=== PATIENT | male | born 1950 | race Caucasian/White ===

== ENCOUNTER → 2017-08-21 11:23 | Outpatient (CLI) | payer MEDICARE, OTHER, SELFPAY ==
--- NOTE | 2017-08-21 11:35 | XR_ITS ---
XR forearm RT 2V, XR wrist RT min 3V Ordering Physician: Sherrie Hdz HISTORY: ITS.REASON: RT WRIST PAIN,RT FOREARM PAIN : 67 years: Male Pain fall wrist pain edema. Forearm pain TECHNIQUE: Right wrist 3 views Right forearm 2 views COMPARISON :No previous for comparison ======== RIGHT WRIST 3 VIEWS Fracture distal radius. Fracture line transverses the distal radial metaphysis. Slight dorsal tilt of the distal fracture fragment with cortical offset most evident anteriorly and seen on lateral view. There is additional fracture lineextending longitudinally through a cortex at tip of radial styloid. Mild cortical step-off at here at the at articular surface radial styloid.. Question there may be a very subtle undisplaced second longitudinal fracture line to the the mid articular surface. There is also a fracture of the ulnar styloid with minor distraction.. At the carpals there is additional density extending off the distal navicular which I believe reflects some spurring and hypertrophic changes. Old feature and and I do not believe reflects acute fracture of navicular on plain Sclerosis, narrowing reflect arthritic changes at the first carpal-metacarpal joint mild hypertrophic changes here. On the lateral image the lunate has a slight posterior position and rotation but is not dislocated or displaced.. There are numerous metallic fragments seen throughout the wrist and hand. This require correlation. I presume is from old injuries of but cannot exclude recent feature. . Diffuse soft tissue swelling at the wrist most evident anteriorly ===. IMPRESSION... Colles' type fracture of wrist. ... 1 Transverse Fracture distal radius metaphysis, with slight dorsal tilt distal radial fracture fragment .... Additional longitudinal fracture,extends through the radial styloid- yields minor cortical offset of articular surface here at the radial styloid.. ... Question/ suspect second a subtle longitudinal fracture line extending to mid articular surface distal radius 2. Ulnar styloid fracture associated 3..Degenerative arthritic changes wrist most evident first carpal-metacarpal joint 4. Most likely hypertrophic spurring from radial margin distal scaphoid account for appearance here.. Doubt acute fracture here on current plain film 5. Scattered metallic foreign body elements throughout soft tissues of hand and wrist require correlation. Most likely old RIGHT FOREARM 2 VIEWS The fracture of the distal radius is been previously described above. Again seen on these images. A generous soft tissue swelling about wrist associated The remainder of the radial and ulnar shaft appear intact. This study includes 2 views of the elbow which reveal no acute findings at limited views of the elbow joint. No effusion or.. The radial head appears intact. Calcification at the lateral epicondyle noted likely reflecting old lateral epicondylitis. Spurring at olecranon. Joint space well maintained.. IMPRESSION: The fracture distal radius again seen. (basically variation Colles' type fracture) . Otherwise Shaft of Radius & ulna shaft intact,. Limited included views elbow with no acute findings. Only Minor observations
== END ==
PROVIDERS: PCP Internal Medicine Adolescent Medicine; Visit Provider Nurse Practitioner Family
DX: M25.531 Pain in right wrist (principal); M79.631 Pain in right forearm
CPT/HCPCS: 73090; 73110

== ENCOUNTER → 2017-08-22 08:41 | Outpatient (CLI) | payer MEDICARE, OTHER, SELFPAY ==
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
== END ==
PROVIDERS: Family Provider Internal Medicine Adolescent Medicine; PCP Internal Medicine Adolescent Medicine; Visit Provider Orthopaedic Surgery
DX: S62.101A Fracture of unspecified carpal bone, right wrist, initial encounter for closed fracture (principal)
CPT/HCPCS: 73200

== ENCOUNTER 2017-08-28 08:53 | Day surgery (SDC) | payer MEDICARE, OTHER, SELFPAY ==
[2017-08-25 14:19] VITALS: BMI 30.8
[2017-08-28] VITALS (12 sets, daily range): BP systolic 178–207; BP diastolic 86–110; PULSE 50–56; RESP 12–20; TEMP 36.6–37.1; O2SAT 95–98
--- NOTE | 2017-08-28 | XR_ITS ---
XR wrist RT 2V HISTORY: ITS.REASON: ORIF RT WRIST ORDERING PHYSICIAN: Mehul May MD PATIENT AGE: 67 years COMPARISON: 08/21/2017 FINDINGS: 2 images submitted with the C-arm show a cast in place with the wrist in slight flexion. There is been closed reduction of the distal radial and ulnar fractures with good alignment. IMPRESSION: Status post closed reduction distal radial and ulnar fractures with good alignment. Fluoroscopy time: 57 seconds
--- NOTE | 2017-08-28 09:41 | P.PN_ITS ---
[facility] Anesthesia Checklist - Structural Data Admitted From: Home Planned Operative Procedure/s: closed reduction r wrist Consent for Planned Operative Procedure(s) Verified: Yes Verified Documents: Surgical Consent - NPO Status Verified Time NPO: 23:00 - Airway Assessment C-Spine Mobility Assessed: Yes TMJ Mobility Assessed: Yes Dentition: Good Dentition - Neurological Assessment Level of Consciousness: Awake, Alert Hx Seizures: No Numbness or tingling in extremities: No - Anesthesia Plan Anesthesia Risk discussed: Yes Anesthesia Plan: Verified ASA Class: II Anesthesia Type: General [facility] Anesthesia HX I have reviewed the patient's past medical history: Yes Medical History: Reports:: Cancer, Depression, Gastroesophageal Reflux Disease( GERD), Hyperlipidemia, Hypertension, Kidney Stones Denies:: Diabetes Mellitus Type 1, Diabetes Mellitus Type 2, MRSA Other Medical History: Reports: Arthritis, Other Laterality Cases: Right: Cataract Other Surgeries: Yes: Cancer Surgery, Colonoscopy Amputation: No Fractures: No Comment: manisha monge *Family Hx:: No significant family history
[2017-08-28 10:20] LABS: Basophils % 0.4 % (0.1-2.0); Eosinophils # 0.1 K/mm3 (0.0-0.4); Eosinophils % 1.5 % (0.1-12.0); Hematocrit 41.7 % (42.0-52.0); Hemoglobin 14.5 g/dL (14.1-18.0); Lymphocytes # 1.5 K/mm3 (0.7-4.5); Lymphocytes % 20.1 K/mm3 (10-50); Mean Corpuscular HGB Conc 34.7 g/dL (31.8-35.4); Mean Corpuscular Hemoglobin 31.9 pg (27.0-31.2); Mean Corpuscular Volume 92.1 fl (80-94); Mean Platelet Volume 9.2 fl (7.4-10.4); Monocytes # 0.5 K/mm3 (0.1-1.0); Monocytes % 6.8 % (1.7-9.3); Neutrophils # 5.3 K/mm3 (1.8-7.8); Neutrophils % 71.2 % (37.0-80.0); Platelet Count 166 K/mm3 (142-424); Red Blood Count 4.53 M/mm3 (4.60-6.20); Red Cell Distribution Width 12.9 % (11.5-17.5); White Blood Count 7.5 K/mm3 (4.8-10.8)
[2017-08-28 10:38] LABS: Anion Gap 16.8 mEq/L (5-15); Blood Urea Nitrogen 15 mg/dL (7-18); Carbon Dioxide 28 mmol/L (21.0-32.0); Chloride 103 mmol/L (98-107); Creatinine Clearance Estimated 94 mL/min (0-300); Creatinine,Serum 1.02 mg/dL (0.70-1.30); Estimated Glomerular Filt Rate 72 ml/min (>60); GFR (African American) 88 ML/MIN (>60); Glucose 120 mg/dL (74-106); Potassium 3.8 mmoL/L (3.5-5.1); Sodium 144 mmol/L (136-145)
--- NOTE | 2017-08-28 10:56 | P.PN_ITS ---
[facility] Anesthesia Record Part I Intake, IV Amount: 500 Estimated blood loss (mL): 0 Urine output (mL): 0 Blood Pressure: 178/95 SaO2: 95 Pulse Rate: 52 Respiratory Rate: 12 Temperature: 98 F Patient is:: Awake, Stable Stable to PACU at:: 10:55
--- NOTE | 2017-08-28 10:56 | P.PN_ITS ---
[facility] Anesthesia Record Part II Discharge Time: 11:25 Destination: [facility] PACU nurse assessment reviewed?: Yes Patient Condition:: Good Anesthesia Complications:: None
--- NOTE | 2017-08-28 10:56 | HMH.ANESII ---
[facility] Anesthesia Record Part II Discharge Time: 11:25 Destination: [facility] PACU nurse assessment reviewed?: Yes Patient Condition:: Good Anesthesia Complications:: None
--- NOTE | 2017-08-28 10:59 | XR_ITS ---
XR wrist RT min 3V Ordering Physician: Mehul May MD Patient Age: 67 years: Male HISTORY: ITS.REASON: right distal radius fracture, closed reduction Postop close reduction TECHNIQUE: 3 view right wrist in cast COMPARISON :Previous right wrist 08/21/2017 FINDINGS At distal radial fracture again noted. It mainly transverses the distal radius but also has a longitudinal component extending through the radial styloid. On today's lateral film there is less dorsal tilt of the distal fracture fragments. Improved alignment. Although obscured by overlying cast material there appears to be a nearly congruent appearance to the distal radial articular cortex. The small ulnar styloid fragment again noted with mild distraction, unchanged. The patient is scattered metallic foreign body elements throughout the hand and adjacent to the wrist. These are likely long-standing. Require correlation. Short arm plaster' split/cast material Anterior and posterior. . 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 IMPRESSION: ----- Fracture distal radius and ulnar styloid. Now in plaster cast/splint Slight improved position distal radial fracture on lateral view
--- NOTE | 2017-08-28 12:56 | PC.NURSE ---
1105-pt eating ice chips w/out difficulty
--- NOTE | 2017-08-28 13:05 | PC.NURSE ---
1120- at pt's bedside at this time 1123-MARK Blackburn notified of pt's elevated BP at this time and that pt reports pain level 3/10 to right arm. MARK Blackburn ordered for pt to have dose of Morphine 2mg IV now and continue to monitor BP. 1125-radiology at bedside
--- NOTE | 2017-08-28 13:09 | PC.NURSE ---
1130-MARK Blackburn at pt's bedside. Notified that pt reports pain level is easing and that pt's BP remains elevated at 200/93. MARK Blackburn ordered that if pt's diastolic BP remains < 100 then pt is okayed for diacharge to post op. 1133-detailed report called to WAYNE Haque 1135-Pt transported to post op via stretcher w/rails up and left in care of WAYNE Haque at this time. Pt stable.
--- NOTE | 2017-08-28 15:24 | PC.NURSE ---
1220-ashlee umana crna asked to be notified if pt diastolic bp went above 100. pt bp is 207/110. luis angel pediatric audiologist notified. in the meantime, pt taken to br with assistance. assisted back to bay and monitored again. bp 207/101 when ashlee umana crna arrived. pt stated he felt fine. and ashlee umana crna okay to dc pt pt stable.
--- NOTE | 2017-08-29 16:41 | HMH.OPNOTE ---
Date of procedure: 08/28/17 Pre-op Diagnosis:: Right distal radius fracture Post-op diagnosis:: same Procedure performed:: Closed reduction under general anesthesia, right distal radius fracture Surgeon:: Mehul May MD OLERICULTURE PROFESSOR:: Tito Arguello Anesthesia: other Estimated blood loss (mL): 0 Operative findings:: See operative note Operative note:: Patient taken to the operating room after appropriate timeout identification, the right upper extremity was evaluated with fluoroscopy. A closed reduction maneuver was performed using traction on the base of the right thumb followed by pronation and a volar directed force to reduce the displaced fracture. After the reduction maneuver was performed, C-arm fluoroscopic views confirmed acceptable reduction. The patient was then placed in a double sugar tong splint, appropriately padded. Additional fluoroscopic views showed the reduction to be appropriate. Note is made that the patient's had a previous fracture and thus has some preceding dorsal tilt. After the plaster had dried sufficiently, the patient was awakened and transported to the recovery room in satisfactory condition for final x-rays as well. Condition: stable Disposition: PACU Complications:: No complications
--- NOTE | 2017-08-29 16:44 | P.OP_ITS ---
Date of procedure: 08/28/17 Pre-op Diagnosis:: Right distal radius fracture Post-op diagnosis:: same Procedure performed:: Closed reduction under general anesthesia, right distal radius fracture Surgeon:: Mehul May MD DATA DESIGNER:: Tito Arguello Anesthesia: other Estimated blood loss (mL): 0 Operative findings:: See operative note Operative note:: Patient taken to the operating room after appropriate timeout identification, the right upper extremity was evaluated with fluoroscopy. A closed reduction maneuver was performed using traction on the base of the right thumb followed by pronation and a volar directed force to reduce the displaced fracture. After the reduction maneuver was performed, C-arm fluoroscopic views confirmed acceptable reduction. The patient was then placed in a double sugar tong splint , appropriately padded. Additional fluoroscopic views showed the reduction to be appropriate. Note is made that the patient's had a previous fracture and thus has some preceding dorsal tilt. After the plaster had dried sufficiently, the patient was awakened and transported to the recovery room in satisfactory condition for final x-rays as well. Condition: stable Disposition: PACU Complications:: No complications
== END 2017-08-28 12:30 | disposition home or self-care (01) ==
LOC: OR 08:55
PROVIDERS: Family Provider Internal Medicine Adolescent Medicine; PCP Internal Medicine Adolescent Medicine; Visit Provider Orthopaedic Surgery
DX: S52.501A Unspecified fracture of the lower end of right radius, initial encounter for closed fracture (principal); W11.XXXA Fall on and from ladder, initial encounter
CPT/HCPCS: 25605; 36415; 73100; 73110; 76000; 80048; 85025; 96374

== ENCOUNTER → 2017-09-13 09:14 | Outpatient (CLI) | payer MEDICARE, OTHER, SELFPAY ==
--- NOTE | 2017-09-13 09:16 | XR_ITS ---
XR wrist RT min 3V HISTORY: Follow-up closed reduction, follow-up fracture ITS.REASON: 2 wk post op RT wrist closed reduction ORDERING PHYSICIAN: Mehul May MD PATIENT AGE: 67 years COMPARISON: 08/28/2017 FINDINGS: Study is obtained through a cast. There is good alignment of the comminuted distal radial fracture with suggestion of some mild callus formation. Bony detail is obscured by the overlying cast. Scattered metallic densities are once again noted. IMPRESSION: Healing fracture distal radius status post closed reduction with good alignment.
== END ==
PROVIDERS: PCP Internal Medicine Adolescent Medicine; Visit Provider Orthopaedic Surgery
DX: S52.501A Unspecified fracture of the lower end of right radius, initial encounter for closed fracture (principal)
CPT/HCPCS: 73110

== ENCOUNTER → 2017-10-04 09:25 | Outpatient (CLI) | payer MEDICARE, OTHER, SELFPAY ==
--- NOTE | 2017-10-04 09:29 | XR_ITS ---
XR wrist RT min 3V Ordering Physician: Mehul May MD Patient Age: 67 years: Male HISTORY: ITS.REASON: RT wrist fx TECHNIQUE: 3 views right wrist COMPARISON :08/28/2017 right wrist FINDINGS Cast is been removed with today's study. Healing fracture transversing the distal radius is again noted with early healing evident. Good apposition.. No displacement. There is a longitudinal extension of this fracture along the radial styloid however the joint surface remains fairly congruent with only subtle cortical irregularity at radial styloid. Of the fracture at the base of the ulnar styloid again noted is well. Stable position. There are arthritic changes narrowing the first carpal-metacarpal joint. There is also some mild Numerous small metallic foreign body calcifications are seen at the right hand of most evident collection is seen dorsal to the second metacarpal. T. These are unchanged IMPRESSION: 1. Healing fracture distal radius . Stable fracture or styloid Arthritic changes at right wrist most evident at first carpal metacarpal joint
== END ==
PROVIDERS: PCP Internal Medicine Adolescent Medicine; Visit Provider Orthopaedic Surgery
DX: Z47.89 Encounter for other orthopedic aftercare (principal)
CPT/HCPCS: 73110

== ENCOUNTER → 2017-12-01 09:09 | Outpatient (CLI) | payer MEDICARE, OTHER, SELFPAY ==
--- NOTE | 2017-12-01 09:11 | XR_ITS ---
XR wrist RT min 3V HISTORY follow-up fracture ITS.REASON: S/P CLOSED REDUCTION RT DISTAL RADIUS ORDERING PHYSICIAN: Mehul May MD PATIENT AGE: 67 years Comparison: 10/04/2017 FINDINGS: There is a healing transverse fracture involving the distal aspect of the radius 1 cm proximal to the articular surface with callus formation developing at fracture site. There is good alignment. Nondisplaced avulsion fracture of the ulnar styloid also noted. Degenerative changes are present at the first metacarpal carpal joint. Multiple metallic densities are present as before on or within the soft tissues. IMPRESSION: Good alignment healing distal radial fracture and ulnar styloid avulsion
== END ==
PROVIDERS: PCP Internal Medicine Adolescent Medicine; Visit Provider Orthopaedic Surgery
DX: Z47.89 Encounter for other orthopedic aftercare (principal)
CPT/HCPCS: 73110

== ENCOUNTER 2017-12-13 10:00 | Outpatient (RCR) | payer MEDICARE, OTHER, SELFPAY ==
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
== END 2017-12-13 10:35 | disposition home or self-care (01) ==
LOC: OT 10:00
PROVIDERS: Family Provider Internal Medicine Adolescent Medicine; PCP Internal Medicine Adolescent Medicine; Visit Provider Orthopaedic Surgery
DX: S52.501A Unspecified fracture of the lower end of right radius, initial encounter for closed fracture (principal)
CPT/HCPCS: 97110; 97140; 97165

== ENCOUNTER → 2018-03-07 07:04 | Outpatient (CLI) | payer MEDICARE, OTHER, SELFPAY ==
[2018-03-07 07:33] LABS: Blood Urea Nitrogen 19 mg/dL (7-18); Creatinine,Serum 1.17 mg/dL (0.70-1.30); Estimated Glomerular Filt Rate 62 ml/min (>60); GFR (African American) 75 ML/MIN (>60)
--- NOTE | 2018-03-07 09:00 | CT_ITS ---
CT abdomen pelvis w con CLINICAL INDICATION: ITS.REASON: RECTOSIGMOID CA, HX LARGE INTESTINE CA, HYPERCHOLESTEROLEMIA ORDERING PHYSICIAN: Masoud Orozco PATIENT AGE: 67 years COMPARISON: 02/25/2017 TECHNIQUE: Axial images obtained with sagittal and coronal reformats. All CT scans at the facility use one or more dose reduction, viz: automated exposure control, ma/kV adjustment per patient size (including targeted exams where dose is matched to indication, i.e. head), or iterative reconstruction technique. PROCEDURE: Oral Contrast: Redicat IV Contrast: 75 mL's of Isovue-370. FINDINGS: There has been a prior cholecystectomy. Slight decreased attenuation is present within the liver in the gallbladder fossa similar to the previous study and may be due to an area of fatty infiltration. Liver has an otherwise unremarkable appearance. There is some mild biliary ectasia which may be due to prior cholecystectomy. The spleen, adrenal glands, and pancreas are unremarkable. The small duodenal diverticulum projecting off the medial portion of the descending duodenum. No adrenal mass. No renal mass. There is a 12 mm nonobstructing left mid renal stone within additional 5 mm stone lateral and 4 mm stone inferior within the left kidney. No ureteral calculi. No evidence of appendicitis or diverticulitis. There is diverticulosis of the descending and sigmoid colon as well as transverse colon. No evidence of diverticulitis. No intestinal obstruction or free air. There is an anastomosis of the small bowel in the right lower quadrant which is widely patent. Postsurgical changes are present in the rectosigmoid region. No adenopathy or mass evident. No significant change from 02/25/2017. No abnormal fluid collection. No pelvic mass or focal inflammatory change apparent. There are mild osteoarthritic changes of the hips and mild degenerative changes in the lumbar spine. No bony destructive process. IMPRESSION: 1. No evidence of hepatic or adrenal metastasis. 2. Left nephrolithiasis. 3. Postsurgical changes at the rectosigmoid region with no CT evidence of for current neoplasm or adenopathy
--- NOTE | 2018-03-07 09:00 | CT_ITS ---
CT chest w con HISTORY: ITS.REASON: RECTOSIGMOID CA, HX LARGE INTESTINE CA, HYPERCHOLESTEROLEMIA ORDERING PHYSICIAN: Masoud Orozco PATIENT AGE: 67 years COMPARISON: None TECHNIQUE: Axial images obtained following the administration of 75 mL of Isovue 370 . Sagittal, and coronal reformatted images are also generated and reviewed. All CT scans at the facility use one or more dose reduction, viz: automated exposure control, ma/kV adjustment per patient size (including targeted exams where dose is matched to indication, i.e. head), or iterative reconstruction technique. FINDINGS: No mediastinal or hilar mass or adenopathy. Coronary artery calcifications are present. There is normal heart size. No evidence of pericardial effusion. No evidence of aortic aneurysm, dissection, or central pulmonary embolus. 3 mm noncalcified nodule in the right middle lobe anteriorly. No suspicious nodules are evident. There is a calcified granuloma in right lung base No effusions or infiltrates. No acute bony anomalies. No bony destructive process. IMPRESSION: Essentially negative CT chest. No convincing evidence of metastatic disease. There is a 3 mm nodule in the right middle lobe which is too small to categorize.
--- NOTE | 2018-03-07 10:05 | HMH.ITSHM ---
METFORMIN,OXYBUTRONIN,SIMVASTATIN,LOANSPRAZOLE.GLIPIRIDE, LOSARTAON FINASTERIDE ASPRIN,
== END ==
PROVIDERS: Family Provider Internal Medicine Adolescent Medicine; PCP Internal Medicine Adolescent Medicine; Visit Provider Internal Medicine Hematology & Oncology
DX: C19 Malignant neoplasm of rectosigmoid junction (principal); Z85.030 Personal history of malignant carcinoid tumor of large intestine; E78.00 Pure hypercholesterolemia, unspecified; D29.1 Benign neoplasm of prostate
CPT/HCPCS: 36415; 71260; 74177; 82565; 84520; Q9967

== ENCOUNTER → 2018-09-14 06:49 | Outpatient (CLI) | payer MEDICARE, OTHER, SELFPAY ==
--- NOTE | 2018-09-14 06:58 | NM_ITS ---
History and Indications: Attention, chest pain, shortness of breath, abnormal EKG, fatigue Procedure: A she received a 0.4 mg of intravenous Lexiscan, resting heart rate was 61 bpm resting blood pressure 191/102, with Lexiscan maximum heart rate achieved was 89 bpm which is less than 85% of the maximum predicted heart rate and a blood pressure was 159/85. With Lexiscan no symptoms recorded Electrocardiogram: Resting echo showed sinus is nonspecific ST-T changes, with Lexiscan there is less than 1.5 mm the segment depression noted from the baseline EKG. The EKG portion of the Lexiscan Myoview is nondiagnostic. Cardiac stress and resting SPECT images: Cardiac stress and resting SPECT images were obtained using technetium 99 Myoview 31.8 mCi stress and 10.7 mCi at rest. Gated SPECT further analysis of segmental wall motion and calculation of the ejection fraction also done. Cardiac stress and resting SPECT images show uniform myocardial activity without segmental perfusion abnormality, computer derived ejection fraction is 57% with no regional wall motion abnormality, right ventricle is normal size and contractility. Conclusion: 1. The EKG portion of the Lexiscan Myoview is nondiagnostic. 2. No scintigraphic evidence of reversible ischemia seen, computer derived ejection fraction is 57% with no regional wall motion abnormality, right ventricle are normal size and contractility. 3. Normal Lexiscan Myoview study.
--- NOTE | 2018-09-14 10:17 | HMH.ITSHM ---
Current Home Medications as stated by this patient Mehul Moulton or sales representative supervisor. []COREG AMLODIPINE ASP ZOLOFT NEXIUM LISINOPRIL INDAPMIDE
== END ==
PROVIDERS: PCP Internal Medicine Adolescent Medicine; Visit Provider Internal Medicine Adolescent Medicine
DX: R94.31 Abnormal electrocardiogram [ECG] [EKG] (principal); R07.9 Chest pain, unspecified
CPT/HCPCS: 78452; 93017; A9502; J2785

== ENCOUNTER → 2018-09-28 10:29 | Outpatient (CLI) | payer MEDICARE, OTHER, SELFPAY ==
--- NOTE | 2018-09-28 10:38 | CT_ITS ---
CT chest wo con HISTORY: Follow-up colon cancer ITS.REASON: ANGINA,MALIGNANT NEOPLASM OF RECTOSIGMOID JUNCTION ORDERING PHYSICIAN: Masoud Orozco PATIENT AGE: 68 years COMPARISON: 03/07/2018 Technique: Axial images obtained following the administration of 75 mL of Optiray 350 . Sagittal, and coronal reformatted images are also generated and reviewed. All CT scans at the facility use one or more dose reduction, viz: automated exposure control, ma/kV adjustment per patient size (including targeted exams where dose is matched to indication, i.e. head), or iterative reconstruction technique. FINDINGS: There is a moderate degree of coronary artery calcification. Normal heart size. No evidence of pericardial effusion. No mediastinal or hilar mass or adenopathy.. Stable parenchymal opacity is present in the right apex anteriorly at 6 mm. A 4 mm noncalcified nodule present in the right upper lobe inferiorly unchanged. A calcified granuloma is present in the right lung base.. There is tortuosity of the thoracic aorta. No new nodules are evident. No effusions or infiltrates. No acute bony findings. There is mild kyphosis of the upper thoracic spine with multilevel degenerative change. IMPRESSION: Overall stable CT appearance of the chest. No convincing evidence of metastatic disease Coronary artery disease
== END ==
PROVIDERS: PCP Internal Medicine Adolescent Medicine; Visit Provider Internal Medicine Hematology & Oncology
DX: C19 Malignant neoplasm of rectosigmoid junction (principal); E78.00 Pure hypercholesterolemia, unspecified; D29.1 Benign neoplasm of prostate; Z85.038 Personal history of other malignant neoplasm of large intestine
CPT/HCPCS: 71250

== ENCOUNTER → 2018-10-01 10:39 | Outpatient (CLI) | payer MEDICARE, OTHER, SELFPAY ==
[2018-10-01 14:13] LABS: Basophils # 0.1 K/mm3 (0-0.2); Basophils % 0.7 % (0.1-2.0); Eosinophils # 0.1 K/mm3 (0.0-0.4); Eosinophils % 1.7 % (0.1-12.0); Hematocrit 39.7 % (42.0-52.0); Hemoglobin 13.7 g/dL (14.1-18.0); Lymphocytes # 1.6 K/mm3 (0.7-4.5); Lymphocytes % 23.9 % (10-50); Mean Corpuscular HGB Conc 34.4 g/dL (31.8-35.4); Mean Corpuscular Hemoglobin 31.6 pg (27.0-31.2); Mean Corpuscular Volume 91.7 fl (80-94); Mean Platelet Volume 9.6 fl (7.4-10.4); Monocytes # 0.4 K/mm3 (0.1-1.0); Monocytes % 6.1 % (1.7-9.3); Neutrophils # 4.5 K/mm3 (1.8-7.8); Neutrophils % 67.7 % (37.0-80.0); Platelet Count 168 K/mm3 (142-424); Red Blood Count 4.33 M/mm3 (4.60-6.20); Red Cell Distribution Width 12.9 % (11.5-17.5); White Blood Count 6.7 K/mm3 (4.8-10.8)
[2018-10-01 15:25] LABS: Alanine Aminotransferase 39 U/L (12-78); Albumin Level 4.2 gm/dL (3.4-5.0); Albumin/Globulin Ratio 1.3 (1.1-1.8); Alkaline Phosphatase 112 U/L (46-116); Anion Gap 15.8 mEq/L (5-15); Aspartate Amino Transferase 25 U/L (15-37); Bilirubin,Total 0.7 mg/dL (0.2-1.0); Blood Urea Nitrogen 23 mg/dL (7-18); Calcium 9.2 mg/dL (8.5-10.1); Carbon Dioxide 26 mmol/L (21.0-32.0); Chloride 105 mmol/L (98-107); Chol/HDL Ratio 7.2 (1-3.5); Cholesterol 224 mg/dL (140-200); Creatinine,Serum 1.22 mg/dL (0.70-1.30); Estimated Glomerular Filt Rate 59 ml/min (>60); GFR (African American) 71 ML/MIN (>60); Globulin 3.3 gm/dl (1.3-3.2); Glucose 144 mg/dL (74-106); HDL Cholesterol 31 mg/dL (27-67); LDL Cholesterol 146 mg/dL (0-130); Potassium 3.8 mmoL/L (3.5-5.1); Prostate Specific Ag Screen 0.8 ng/mL (0.0-4.0); Sodium 143 mmol/L (136-145); Thyroid Stimulating Hormone 4.08 uIU/ml (0.358-3.740); Total Protein,Serum 7.5 gm/dL (6.4-8.2); Triglycerides 233 mg/dL (30-200); VLDL Cholesterol 47 mg/dL (0-40)
[2018-10-02 07:02] LABS: Vitamin D 25 Hydroxy 23.5 ng/mL (30.0-100.0)
[2018-10-02 08:11] LABS: Vitamin B12 436 pg/mL (232-1245)
== END ==
PROVIDERS: PCP Internal Medicine Adolescent Medicine; Visit Provider Internal Medicine Adolescent Medicine
DX: Z00.00 Encounter for general adult medical examination without abnormal findings (principal); I10 Essential (primary) hypertension; E78.5 Hyperlipidemia, unspecified; R73.9 Hyperglycemia, unspecified; Z12.5 Encounter for screening for malignant neoplasm of prostate; Z85.038 Personal history of other malignant neoplasm of large intestine
CPT/HCPCS: 36415; 80053; 80061; 82378; 82607; 82652; 83036; 84443; 85025; G0103

== ENCOUNTER → 2019-03-05 11:15 | Outpatient (CLI) | payer MEDICARE, OTHER, SELFPAY ==
[2019-03-05 14:11] LABS: Basophils # 0.1 K/mm3 (0-0.2); Basophils % 0.5 % (0.1-2.0); Eosinophils # 0.1 K/mm3 (0.0-0.4); Eosinophils % 0.5 % (0.1-12.0); Hematocrit 43.9 % (42.0-52.0); Hemoglobin 14.8 g/dL (14.1-18.0); Lymphocytes # 1.4 K/mm3 (0.7-4.5); Lymphocytes % 11.4 % (10-50); Mean Corpuscular HGB Conc 33.6 g/dL (31.8-35.4); Mean Corpuscular Volume 95.1 fl (80-94); Mean Platelet Volume 8.8 fl (7.4-10.4); Monocytes # 0.7 K/mm3 (0.1-1.0); Monocytes % 5.6 % (1.7-9.3); Platelet Count 204 K/mm3 (142-424); Red Blood Count 4.62 M/mm3 (4.60-6.20); Red Cell Distribution Width 13.1 % (11.5-17.5); White Blood Count 12.2 K/mm3 (4.8-10.8)
[2019-03-05 19:56] LABS: Alanine Aminotransferase 40 U/L (12-78); Albumin Level 4.4 gm/dL (3.4-5.0); Albumin/Globulin Ratio 1.2 (1.1-1.8); Alkaline Phosphatase 92 U/L (46-116); Amylase 98 U/L (25-115); Anion Gap 16.8 mEq/L (5-15); Aspartate Amino Transferase 22 U/L (15-37); Bilirubin,Total 0.8 mg/dL (0.2-1.0); Blood Urea Nitrogen 24 mg/dL (7-18); Calcium 9.6 mg/dL (8.5-10.1); Carbon Dioxide 25 mmol/L (21.0-32.0); Chloride 105 mmol/L (98-107); Creatinine,Serum 1.28 mg/dL (0.70-1.30); Estimated Glomerular Filt Rate 56 ml/min (>60); GFR (African American) 67 ML/MIN (>60); Globulin 3.6 gm/dl (1.3-3.2); Glucose 130 mg/dL (74-106); Lipase 191 u/L (73-393); Potassium 3.8 mmoL/L (3.5-5.1); Sodium 143 mmol/L (136-145)
== END ==
PROVIDERS: PCP Internal Medicine Adolescent Medicine; Visit Provider Internal Medicine Adolescent Medicine
DX: R19.7 Diarrhea, unspecified (principal); R11.10 Vomiting, unspecified; R10.84 Generalized abdominal pain
CPT/HCPCS: 36415; 80053; 82150; 83690; 85025

== ENCOUNTER → 2019-03-20 08:17 | Outpatient (CLI) | payer MEDICARE, OTHER, SELFPAY ==
--- NOTE | 2019-03-20 08:23 | US_ITS ---
PROCEDURE: US ABDOMEN LIMITED CLINICAL INDICATION: VOMITING,ABD PAIN COMPARISON: ABDPELW CT abdomen pelvis w con from 03/07/[address] chest wo con from 09/28/2018 FINDINGS: PANCREAS: Poorly demonstrated due to overlying bowel gas. LIVER: No focal liver lesions demonstrated. Homogeneous echogenicity. No intrahepatic biliary ductal dilatation evident. There is appropriate direction of blood flow within a non dilated portal vein RIGHT KIDNEY: No hydronephrosis. There is mild right renal cortical scarring GALLBLADDER: Prior cholecystectomy. Common bile duct is normal at 4 mm. IMPRESSION: Prior cholecystectomy. No acute finding Dictated by: Brown Cross MD 03/21/2019 10:54 Electronically signed by Brown Cross MD in [place] 03/21/2019 10:54
--- NOTE | 2019-03-20 08:50 | MR_ITS ---
PROCEDURE: MR ABDOMEN WO CON CLINICAL INDICATION: ABDOMEN PAIN Abdominal pain with nausea and vomiting green bile. Prior cholecystectomy. COMPARISON: ABDPELW CT abdomen pelvis w con from 03/07/2018 US ABDOMEN LIMITED from 03/20/2019 TECHNIQUE: Routine multiplanar multi echo sequences are performed without gadolinium enhancement. MRCP technique also utilized FINDINGS: There is mild ectasia of the intrahepatic biliary radicles. There has been a prior cholecystectomy. The common hepatic duct and common bile duct are normal in caliber. No retained common duct stones are evident. The liver has an unremarkable appearance.. There is a small cluster of cyst in the mid aspect of the left kidney. There is mild renal cortical thinning on the left. This small cluster measures approximately 2 cm. This was present on previous CT scan of 03/07/2018 and does not appear significantly changed. That exam/the CT scan did demonstrate renal stones which are not well demonstrated by MRI. MRCP images show normal caliber common hepatic and common bile duct and pancreatic duct. The biliary radicles are slightly prominent nonspecific and may be due to prior cholecystectomy. No retained common duct stones are evident. No strictures of the common bile duct. IMPRESSION: 1. Minimal ectasia of the right left biliary radicles with unremarkable common hepatic and common bile duct. No common duct stones or common duct strictures 2. Small cluster of left renal cysts Dictated by: Brown Cross MD 03/22/2019 15:54 Electronically signed by Brown Cross MD in [facility] 03/22/2019 15:54
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
== END ==
PROVIDERS: PCP Internal Medicine Adolescent Medicine; Visit Provider Internal Medicine Adolescent Medicine
DX: R11.10 Vomiting, unspecified (principal); R10.9 Unspecified abdominal pain; M25.511 Pain in right shoulder
CPT/HCPCS: 73030; 74181; 76376; 76705

== ENCOUNTER → 2019-04-01 10:34 | Outpatient (POV) | payer MEDICARE, OTHER, SELFPAY | PROVIDERS: PCP Internal Medicine Adolescent Medicine; Visit Provider Nurse Practitioner Family | DX: Z00.00 Encounter for general adult medical examination without abnormal findings (principal) ==

== ENCOUNTER → 2019-04-10 10:26 | Outpatient (CLI) | payer MEDICARE, OTHER, SELFPAY ==
[2019-04-10 13:53] LABS: Basophils # 0.1 K/mm3 (0-0.2); Basophils % 1.1 % (0.1-2.0); Eosinophils # 0.1 K/mm3 (0.0-0.4); Eosinophils % 1.4 % (0.1-12.0); Hematocrit 41.7 % (42.0-52.0); Hemoglobin 13.3 g/dL (14.1-18.0); Lymphocytes # 1.6 K/mm3 (0.7-4.5); Mean Corpuscular HGB Conc 31.9 g/dL (31.8-35.4); Mean Corpuscular Hemoglobin 31.1 pg (27.0-31.2); Mean Corpuscular Volume 97.7 fl (80-94); Mean Platelet Volume 9.6 fl (7.4-10.4); Monocytes # 0.4 K/mm3 (0.1-1.0); Monocytes % 5.2 % (1.7-9.3); Neutrophils # 4.8 K/mm3 (1.8-7.8); Neutrophils % 69.4 % (37.0-80.0); Platelet Count 182 K/mm3 (142-424); Red Blood Count 4.27 M/mm3 (4.60-6.20); Red Cell Distribution Width 13.9 % (11.5-17.5); White Blood Count 6.8 K/mm3 (4.8-10.8)
[2019-04-10 14:16] LABS: Alanine Aminotransferase 24 U/L (12-78); Albumin Level 4.1 gm/dL (3.4-5.0); Albumin/Globulin Ratio 1.3 (1.1-1.8); Alkaline Phosphatase 92 U/L (46-116); Anion Gap 12.5 mEq/L (5-15); Aspartate Amino Transferase 15 U/L (15-37); Bilirubin,Total 0.8 mg/dL (0.2-1.0); Blood Urea Nitrogen 24 mg/dL (7-18); Calcium 9.1 mg/dL (8.5-10.1); Carbon Dioxide 29 mmol/L (21.0-32.0); Chloride 107 mmol/L (98-107); Creatinine,Serum 1.28 mg/dL (0.70-1.30); Estimated Glomerular Filt Rate 56 ml/min (>60); GFR (African American) 67 ML/MIN (>60); Globulin 3.2 gm/dl (1.3-3.2); Glucose 105 mg/dL (74-106); Potassium 3.5 mmoL/L (3.5-5.1); Sodium 145 mmol/L (136-145); Total Protein,Serum 7.3 gm/dL (6.4-8.2)
[2019-04-11 14:28] LABS: CEA 1.2 ng/mL (0.0-4.7)
== END ==
PROVIDERS: PCP Internal Medicine Adolescent Medicine; Visit Provider Internal Medicine Adolescent Medicine
DX: K21.9 Gastro-esophageal reflux disease without esophagitis (principal); Z85.038 Personal history of other malignant neoplasm of large intestine
CPT/HCPCS: 36415; 80053; 82378; 85025

== ENCOUNTER → 2019-04-12 08:21 | Outpatient (CLI) | payer MEDICARE, OTHER, SELFPAY ==
--- NOTE | 2019-04-12 08:28 | CT_ITS ---
PROCEDURE: CT CHEST W CON CLINICAL HISTORY: COLON CA Follow-up colon cancer COMPARISON: CHESTWO CT chest wo con from 09/28/2018 TECHNIQUE: 75 mL Optiray 350 Axial images obtained with sagittal and coronal reformats. All CT scans at the facility use one or more dose reduction, viz: automated exposure control, ma/kV adjustment per patient size (including targeted exams where dose is matched to indication, i.e. head), or iterative reconstruction technique. FINDINGS: There are coronary artery calcifications with normal heart size and no evidence of pericardial effusion. No mediastinal or hilar mass or adenopathy. There is a small subpleural parenchymal opacity in the right upper lobe at 6 mm unchanged. A subtle 4 mm parenchymal opacity is present in the right upper lobe laterally on image number 39 unchanged 3 mm nodules present in the right middle lobe anteriorly unchanged. No new nodules are evident. No effusions or infiltrates. There are mild degenerative changes in the thoracic spine. No bony destructive process. No central obstructing lesion. There tortuosity of the thoracic aorta but no evidence of aneurysm IMPRESSION: Stable CT appearance of the chest with no convincing evidence of metastatic disease Dictated by: Brown Cross MD 04/12/2019 18:32 Electronically signed by Brown Cross MD in [place] 04/13/2019 06:03
--- NOTE | 2019-04-12 08:28 | CT_ITS ---
PROCEDURE: CT ABDOMEN PELVIS W CON CLINICAL HISTORY: COLON CA [facility] TECHNIQUE: 75 mL Optiray 350 Axial images obtained with sagittal and coronal reformats. All CT scans at the facility use one or more dose reduction, viz: automated exposure control, ma/kV adjustment per patient size (including targeted exams where dose is matched to indication, i.e. head), or iterative reconstruction technique. FINDINGS: Post cholecystectomy changes with mild biliary ectasia and some decreased attenuation within the gallbladder fossa similar to the previous exam. No focal liver lesions evident. The spleen, adrenal glands, pancreas, and right kidney has an unremarkable appearance. There is left nephrolithiasis with a 14 mm stone and an additional 4 mm stone in the mid polar region of the left kidney. No hydronephrosis. No intra-abdominal pelvic or retroperitoneal adenopathy. There are few small lymph nodes in the peripancreatic region and periportal area unchanged. There diverticulosis of the descending and sigmoid colon. No evidence of diverticulitis. Unremarkable appendix. There are postsurgical changes of the rectosigmoid region as before with a few small pelvic lymph nodes present but no dominant adenopathy. The urinary bladder is decompressed. There are degenerative changes of the lumbar spine and hips. IMPRESSION: 1. Overall stable CT appearance of the abdomen and pelvis with no convincing evidence of metastatic disease. 2. Postsurgical changes Dictated by: Brown Cross MD 04/12/2019 18:30 Electronically signed by Brown Cross MD in [place] 04/13/2019 06:11
== END ==
PROVIDERS: PCP Internal Medicine Adolescent Medicine; Visit Provider Internal Medicine Hematology & Oncology
DX: C19 Malignant neoplasm of rectosigmoid junction (principal); E78.00 Pure hypercholesterolemia, unspecified; D29.1 Benign neoplasm of prostate; Z85.030 Personal history of malignant carcinoid tumor of large intestine
CPT/HCPCS: 71260; 74177; Q9967

== ENCOUNTER → 2020-10-22 07:17 | Outpatient (CLI) | payer MEDICARE, OTHER, SELFPAY ==
[2020-10-22 13:44] LABS: Basophils # 0.1 K/mm3 (0-0.2); Basophils % 0.8 % (0.1-2.0); Eosinophils # 0.2 K/mm3 (0.0-0.4); Hematocrit 38.5 % (42.0-52.0); Hemoglobin 13.2 g/dL (14.1-18.0); Lymphocytes # 1.8 K/mm3 (0.7-4.5); Mean Corpuscular HGB Conc 34.3 g/dL (31.8-35.4); Mean Corpuscular Hemoglobin 32.8 pg (27.0-31.2); Mean Corpuscular Volume 95.5 fl (80-94); Mean Platelet Volume 9.7 fl (7.4-10.4); Monocytes # 0.4 K/mm3 (0.1-1.0); Monocytes % 5.6 % (1.7-9.3); Neutrophils % 67.6 % (37.0-80.0); Platelet Count 141 K/mm3 (142-424); Red Blood Count 4.03 M/mm3 (4.60-6.20); Red Cell Distribution Width 13.1 % (11.5-17.5); White Blood Count 7.3 K/mm3 (4.8-10.8)
[2020-10-22 13:48] LABS: Alanine Aminotransferase 18 U/L (12-78); Alkaline Phosphatase 283 U/L (38-126); Aspartate Amino Transferase 21 U/L (17-59); Bilirubin,Total 0.8 mg/dl (0.2-1.3); Blood Urea Nitrogen 20 mg/dl (9-20); Calcium 9.3 mg/dl (8.4-10.2); Carbon Dioxide 23 mmol/L (22.0-30.0); Chloride 104 mmol/L (98-107); Chol/HDL Ratio 5.5 (1-3.5); Cholesterol 127 mg/dl (140-200); Estimated Glomerular Filt Rate 66 ml/min (>60); GFR (African American) 80 ML/MIN (>60); HDL Cholesterol 23 mg/dl (40-60); Triglycerides 327 mg/dl (30-150); VLDL Cholesterol 65 mg/dL (0-40)
[2020-10-22 13:50] LABS: Albumin Level 3.9 g/dl (3.5-5.0); Albumin/Globulin Ratio 1.6 (1.1-1.8); Anion Gap 10.9 mEq/L (5-15); Globulin 2.5 g/dL (1.3-3.2); Potassium 3.9 mmoL/L (3.5-5.1); Sodium 134 mmol/L (136-145); Total Protein,Serum 6.4 g/dl (6.3-8.2)
[2020-10-22 13:59] LABS: Direct LDL Cholesterol 64.46 mg/dL (100-129)
[2020-10-22 14:00] LABS: Glucose 439 mg/dl (74-100)
[2020-10-22 14:18] LABS: Prostate Specific Ag Screen 0.6 ng/ml (0.0-4.0)
[2020-10-22 14:50] LABS: Hemoglobin A1C 11.1 % (4.0-6.0)
[2020-10-24 08:59] LABS: CEA 2.3 ng/mL (0.0-4.7)
== END ==
PROVIDERS: Visit Provider Internal Medicine Adolescent Medicine
DX: E11.9 Type 2 diabetes mellitus without complications (principal); E78.5 Hyperlipidemia, unspecified; Z12.5 Encounter for screening for malignant neoplasm of prostate; Z85.038 Personal history of other malignant neoplasm of large intestine
CPT/HCPCS: 36415; 80053; 80061; 82378; 83036; 85025; G0103

== ENCOUNTER 2021-10-27 10:49 | Emergency (ER) | payer MEDICARE, OTHER, SELFPAY ==
[2021-10-27 10:56] VITALS: BP 181/90; PULSE 63; RESP 17; TEMP 36.7; O2SAT 98; BMI 32.3
--- NOTE | 2021-10-27 10:59 | CT_ITS ---
FINAL REPORT TECHNIQUE: Axial CT images were obtained through the facial bones/sinuses. Coronal reformats were obtained. This study was performed with techniques to keep radiation doses as low as reasonably achievable (ALARA). Individualized dose reduction techniques using automated exposure control or adjustment of mA and/or kV according to the patient's size were employed. CLINICAL HISTORY: fall FINDINGS: There is no acute fracture. The orbits are intact. The globes are unremarkable. The visualized sinuses are clear. There are multiple small metallic fragments along the left nasal bridge, inferior left supraorbital region and right temporal region. It is unclear if these are acute or chronic. IMPRESSION: No acute fracture. Small metallic fragments as described. Unclear if these are acute or chronic. Reviewed, Interpreted and Dictated by Fabricio Hopkins MD Transcribed by Jr Richardson Authenticated by Fabricio Hopkins MD on 10/27/2021 11:52:33 AM [facility]
--- NOTE | 2021-10-27 10:59 | CT_ITS ---
FINAL REPORT TECHNIQUE: Axial images were obtained of the cervical spine by computed tomography. Coronal and sagittal reconstruction process performed. This study was performed with techniques to keep radiation doses as low as reasonably achievable (ALARA). Individualized dose reduction techniques using automated exposure control or adjustment of mA and/or kV according to the patient''s size were employed. CLINICAL HISTORY: fall FINDINGS: Cervical vertebrae show normal height. There is mild narrowing of the cervical discs. 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 Anterior osteophytes are most evident at C4-C5. There is anterior indentation of the thecal sac secondary to ossification of the anterior longitudinal ligament. There is moderate neural foraminal narrowing at C4-C5. There is no malalignment. The facets are properly aligned. IMPRESSION: No acute fracture. Reviewed, Interpreted and Dictated by Fabricio Hopkins MD Transcribed by Jr Richardson Authenticated by Fabricio Hopkins MD on 10/27/2021 11:52:31 AM [facility]
--- NOTE | 2021-10-27 10:59 | CT_ITS ---
FINAL REPORT TECHNIQUE: Axial images were performed through the brain.This study was performed with techniques to keep radiation doses as low as reasonably achievable, (ALARA). Individualized dose reduction techniques using automated exposure control or adjustment of mA and/or kV according to the patient''s size were employed. CLINICAL HISTORY: fall FINDINGS: There is moderate atrophy with proportionate ventriculomegaly. There is decreased attenuation in the deep white matter consistent with chronic microvascular ischemia. There is no extra-axial fluid or midline shift. There is no evidence of acute hemorrhage or mass. There is no acute osseous abnormality. There are small metallic fragments along the left nasal bridge, inferior left supraorbital region and right temporal region of uncertain etiology. IMPRESSION: Moderate atrophy with chronic microvascular ischemia. No acute intracranial process. Reviewed, Interpreted and Dictated by Fabrciio Hopkins MD Transcribed by Jr Richardson Authenticated by Fabricio Hopkins MD on 10/27/2021 11:52:32 AM [facility]
--- NOTE | 2021-10-27 11:00 | HMH.EDGENADL ---
ED Disposition Clinical Impression: Abrasions of multiple sites Laceration of nose Qualifiers: Encounter type: initial encounter Qualified Code(s): S01.21XA - Laceration without foreign body of nose, initial encounter Hand contusion Qualifiers: Encounter type: initial encounter Laterality: left Qualified Code(s): S60.222A - Contusion of left hand, initial encounter Fall on steps Qualifiers: Encounter type: initial encounter Qualified Code(s): W10.8XXA - Fall (on) (from) other stairs and steps, initial encounter Disposition: Home, Self-Care Condition on Discharge: Good Instructions: DI for Laceration Repair, How to Prevent Falls, DI for Closed Head Injury Additional Instructions: Additional instructions for FACIAL LACERATION: Clean the wound daily with soap and water. You may shower. Apply a thin film of antibiotic ointment such as neosporin or triple antibiotic after showering. Avoid submerging the wound, no swimming. See your primary care physician or return to the [facility] in 5 days for suture removal. The [facility] is open 9AM to 9 PM, 7 days a week. Return if any signs of infection including increasing pain, pus drainage, swelling, redness, red streaks, or fever. additional instructions for HEAD INJURY: See your physician as soon as possible for further evaluation. Return immediately if severe headache, vomiting, problems with vision or speech, numbness or weakness of the extremities, or severe neck pain. Referrals: Alexis Jessica MD [Primary Care Provider] - - Critical Care Critical Care Time: No Attestation: On , the high probability of a clinically significant, sudden or life threatening deterioration of the following system(s) required my full and direct attention, intervention and personal management. The time I documented below is in addition to time spent performing reported procedures but includes the following listed in this critical care notation. Medical Decision Making - Damien Inquiry Pt receiving controlled substance: No Vital Signs: 10/27/21 10:56 10/27/21 12:17 Temperature 98.1 F 98.1 F Temperature Source Oral Oral Pulse Rate 86 Pulse Rate [Left Radial] 63 Respiratory Rate 17 17 Blood Pressure 174/78 H Blood Pressure [Right Arm] 181/90 H Blood Pressure Mean [Right Arm] 120 02 Sat by Pulse Oximetry 98 Oxygen Delivery Method Room Air Room Air Orders (Tests/Meds): ED MEDICATIONS Discontinued Medications Generic Name Dose Route Start Last Admin Trade Name Shaun PRN Reason Stop Dose Admin Lidocaine/Epinephrine 20 ml 10/27/21 11:00 Lidocaine 1% W/Epi 1:100,000 20ml Vial SQ 10/27/21 11:01 ONCE ONE - Radiology Data #1 Image(s): Hand Image Reviewed: Yes I reviewed the patient's radiology image, Yes I have reviewed radiologist's interpretation Preliminary Findings: Normal/NAD Procedure(s): XR hand LT min 3V Accession Number(s): [id number] cc: Alexis Jessica MD; Fabricio Hopkins MD~ FINAL REPORT CLINICAL HISTORY: fall FINDINGS: LEFT HAND Three views demonstrate no acute fracture or dislocation. There are moderate hypertrophic changes of the DIP, PIP and basilar joints consistent with osteoarthritis. There is mild soft tissue swelling over the dorsum of the wrist. IMPRESSION: No acute bony abnormality. Reviewed, Interpreted and Dictated by Fabricio Hopkins MD Transcribed by Jr Richardson Authenticated by Fabricio Hopkins MD on 10/27/2021 11:52:[address] [facility] - CT Data CT Scan: Head, C-Spine, Other (facial) Time Received: 12:[address] Reviewed: Yes: I have viewed the radiologist's interpretation Findings Narrative: Procedure(s): CT head/brain wo con Accession Number(s): [id number] cc: Alexis Jessica MD; Fabricio Hopkins MD; Memo Palma MD~ FINAL REPORT TECHNIQUE: Axial images were performed through the brain.This study was performed with techniques to keep radi
[2021-10-27 12:17] VITALS: BP 174/78; PULSE 86; RESP 17; TEMP 36.7; O2SAT 98
== END 2021-10-27 12:18 | disposition home or self-care (01) ==
PROVIDERS: Emergency Provider Emergency Medicine; PCP Internal Medicine Adolescent Medicine
DX: S01.21XA Laceration without foreign body of nose, initial encounter (principal); S50.12XA Contusion of left forearm, initial encounter; S60.222A Contusion of left hand, initial encounter; I10 Essential (primary) hypertension; K21.9 Gastro-esophageal reflux disease without esophagitis; E78.5 Hyperlipidemia, unspecified; M19.90 Unspecified osteoarthritis, unspecified site; F32.A Depression, unspecified; Z79.82 Long term (current) use of aspirin; Z79.899 Other long term (current) drug therapy; Z85.9 Personal history of malignant neoplasm, unspecified; Z87.442 Personal history of urinary calculi; W10.8XXA Fall (on) (from) other stairs and steps, initial encounter
CPT/HCPCS: 12011; 70450; 70486; 72125; 73130; 99285

== ENCOUNTER → 2022-02-17 19:53 | Outpatient (CLI) | payer MEDICARE, OTHER, SELFPAY ==
[2022-02-17 21:42] LABS: Basophils # 0.1 K/mm3 (0-0.2); Basophils % 0.9 % (0.1-2.0); Eosinophils # 0.2 K/mm3 (0.0-0.4); Eosinophils % 1.8 % (0.1-12.0); Hematocrit 40.6 % (42.0-52.0); Hemoglobin 13.3 g/dL (14.1-18.0); Lymphocytes # 1.8 K/mm3 (0.7-4.5); Lymphocytes % 18.9 % (10-50); Mean Corpuscular HGB Conc 32.8 g/dL (31.8-35.4); Mean Corpuscular Hemoglobin 32.8 pg (27.0-31.2); Mean Corpuscular Volume 99.9 fl (80-94); Mean Platelet Volume 11.5 fl (7.4-10.4); Monocytes # 0.5 K/mm3 (0.1-1.0); Monocytes % 5.7 % (1.7-9.3); Neutrophils # 6.8 K/mm3 (1.8-7.8); Neutrophils % 72.6 % (37.0-80.0); Platelet Count 213 K/mm3 (142-424); Red Blood Count 4.07 M/mm3 (4.60-6.20); Red Cell Distribution Width 13.4 % (11.5-17.5); White Blood Count 9.3 K/mm3 (4.8-10.8)
[2022-02-17 21:52] LABS: Chloride 105 mmol/L (98-107); Sodium 143 mmol/L (136-145)
[2022-02-17 21:53] LABS: Potassium 3.8 mmoL/L (3.5-5.1)
[2022-02-17 21:55] LABS: Alanine Aminotransferase 20 U/L (12-78); Albumin Level 4.6 g/dl (3.5-5.0); Albumin/Globulin Ratio 1.6 (1.1-1.8); Alkaline Phosphatase 129 U/L (38-126); Anion Gap 14.8 mEq/L (5-15); Aspartate Amino Transferase 28 U/L (17-59); Bilirubin,Total 0.7 mg/dl (0.2-1.3); Blood Urea Nitrogen 32 mg/dl (9-20); Carbon Dioxide 27 mmol/L (22.0-30.0); Cholesterol 126 mg/dl (140-200); Estimated Glomerular Filt Rate 54 ml/min (>60); GFR (African American) 65 ML/MIN (>60); Globulin 2.8 g/dL (1.3-3.2); Total Protein,Serum 7.4 g/dl (6.3-8.2); Triglycerides 165 mg/dl (30-150); VLDL Cholesterol 33 mg/dL (0-40)
[2022-02-17 21:56] LABS: Calcium 9.9 mg/dl (8.4-10.2); Chol/HDL Ratio 3.9 (1-3.5); Glucose 103 mg/dl (74-100); HDL Cholesterol 32 mg/dl (40-60)
[2022-02-17 22:07] LABS: Hemoglobin A1C 6.2 % (4.0-6.0)
[2022-02-19 09:37] LABS: Direct LDL Cholesterol 62 mg/dL (100-129)
== END ==
PROVIDERS: PCP Internal Medicine Adolescent Medicine; Visit Provider Internal Medicine Adolescent Medicine
DX: E11.9 Type 2 diabetes mellitus without complications (principal); E78.5 Hyperlipidemia, unspecified; Z85.038 Personal history of other malignant neoplasm of large intestine; I10 Essential (primary) hypertension
CPT/HCPCS: 80053; 80061; 83036; 85025; 86316

== ENCOUNTER 2022-02-22 20:20 | Emergency (ER) | payer MEDICARE, OTHER, SELFPAY ==
[2022-02-22] VITALS (7 sets, daily range): BP systolic 136–184; BP diastolic 77–96; PULSE 74–90; RESP 16–19; TEMP 37.2–38.1; O2SAT 95–97; BMI 30.8
--- NOTE | 2022-02-22 21:04 | ECG_ITS ---
APPROVED REPORT Exam: Resting ECG HR:86 bpm ECG Measurements Heart Rate 86 AXES WA 187 P 13 QRSd 133 QRS -28 QT 357 T 58 QTc 400 Conclusion SINUS RHYTHM BORDERLINE LEFT AXIS DEVIATION [QRS AXIS < -20] INTRAVENTRICULAR CONDUCTION DELAY [130+ ms QRS DURATION] ABNORMAL ECG UNCONFIRMED REPORT Electronically signed by : Alexis Jessica MD 02/26/2022 08:13:04
--- NOTE | 2022-02-22 21:27 | XR_ITS ---
PROCEDURE INFORMATION: Exam: XR Chest Exam date and time: 02/22/2022 9:25 PM Age: 71 years old Clinical indication: Patient HX: Generalized weakness; Additional info: Routine TECHNIQUE: Imaging protocol: Radiologic exam of the chest. Views: 2 views. COMPARISON: CT CHEST W CON 04/12/2019 11:16 AM FINDINGS: Lungs: Scattered areas of atelectasis in the lung bases. No consolidation. Pleural spaces: Unremarkable. No pleural effusion. No pneumothorax. Heart/Mediastinum: Unremarkable. No cardiomegaly. Bones/joints: Unremarkable. IMPRESSION: No acute findings.
[2022-02-22 21:33] LABS: Coronavirus 19, PCR Not Detected (NotDetected); Influenza A, PCR Not Detected (NotDetected); Influenza B, PCR Not Detected (NotDetected)
[2022-02-22 21:35] LABS: Basophils # 0.1 K/mm3 (0-0.2); Basophils % 0.9 % (0.1-2.0); Eosinophils % 0.1 % (0.1-12.0); Hematocrit 40.1 % (42.0-52.0); Hemoglobin 13.2 g/dL (14.1-18.0); Lymphocytes # 0.8 K/mm3 (0.7-4.5); Lymphocytes % 10.5 % (10-50); Mean Corpuscular HGB Conc 32.9 g/dL (31.8-35.4); Mean Corpuscular Hemoglobin 32.2 pg (27.0-31.2); Mean Corpuscular Volume 98.1 fl (80-94); Mean Platelet Volume 9.5 fl (7.4-10.4); Monocytes # 0.6 K/mm3 (0.1-1.0); Monocytes % 7.7 % (1.7-9.3); Neutrophils # 6.4 K/mm3 (1.8-7.8); Neutrophils % 80.7 % (37.0-80.0); Platelet Count 135 K/mm3 (142-424); Red Blood Count 4.09 M/mm3 (4.60-6.20); Red Cell Distribution Width 13.3 % (11.5-17.5); White Blood Count 7.9 K/mm3 (4.8-10.8)
[2022-02-22 21:47] LABS: Alanine Aminotransferase 24 U/L (12-78); Albumin Level 4.2 g/dl (3.5-5.0); Albumin/Globulin Ratio 1.4 (1.1-1.8); Alkaline Phosphatase 116 U/L (38-126); Anion Gap 13.5 mEq/L (5-15); Aspartate Amino Transferase 32 U/L (17-59); Bilirubin,Total 1.1 mg/dl (0.2-1.3); Blood Urea Nitrogen 21 mg/dl (9-20); Calcium 9.1 mg/dl (8.4-10.2); Carbon Dioxide 26 mmol/L (22.0-30.0); Chloride 104 mmol/L (98-107); Creatinine Clearance Estimated 60 mL/min (50-200); Estimated Glomerular Filt Rate 46 ml/min (>60); GFR (African American) 56 ML/MIN (>60); Glucose 179 mg/dl (74-100); Potassium 3.5 mmoL/L (3.5-5.1); Sodium 140 mmol/L (136-145); Total Protein,Serum 7.2 g/dl (6.3-8.2)
[2022-02-22 22:01] LABS: Troponin I 0.04 ng/ml (0.00-0.034)
[2022-02-22 22:05] LABS: Magnesium 1.5 mg/dl (1.6-2.3)
[2022-02-22 22:06] LABS: Procalcitonin 0.487 ng/mL (0.0-2.0)
[2022-02-22 22:10] LABS: Erythrocyte Sedimentation Rate 39 mm/hr (0-20)
[2022-02-22 22:24] LABS: T4 (Thyroxine) 7.3 ug/dl (5.53-11.0)
[2022-02-22 22:37] LABS: Thyroid Stimulating Hormone 3.72 uIU/mL (0.465-4.68)
--- NOTE | 2022-02-22 23:06 | HMH.EDFEV ---
ED Disposition Clinical Impression: Febrile illness, acute Disposition: Home, Self-Care Condition on Discharge: Good Instructions: DI for Fever (Symptom) -- Adult Additional Instructions: fluids and call pcp for follow up Referrals: Alexis Jessica MD [Primary Care Provider] - - Critical Care Critical Care Time: No Attestation: On 02/22/22, the high probability of a clinically significant, sudden or life threatening deterioration of the following system(s) required my full and direct attention, intervention and personal management. The time I documented below is in addition to time spent performing reported procedures but includes the following listed in this critical care notation. Medical Decision Making - Medical Records Medical records reviewed: Yes: I reviewed the patient's medical records. - Damien Inquiry Pt receiving controlled substance: No Vital Signs: 02/22/22 20:21 02/22/22 21:18 02/22/22 21:30 Temperature 100.6 F H Temperature Source Oral Pulse Rate 89 88 Pulse Rate [Left] 90 Respiratory Rate 16 Blood Pressure 184/86 H Blood Pressure [Right Arm] 179/96 H Blood Pressure Mean [Right Arm] 123 02 Sat by Pulse Oximetry 96 95 95 Oxygen Delivery Method Room Air Room Air Room Air 02/22/22 22:00 02/22/22 22:30 02/22/22 23:00 Temperature 99.6 F Temperature Source Oral Pulse Rate 84 82 84 Pulse Rate [Left] Respiratory Rate 19 Blood Pressure 168/81 H 160/80 H 151/84 H Blood Pressure [Right Arm] Blood Pressure Mean [Right Arm] 02 Sat by Pulse Oximetry 95 96 96 Oxygen Delivery Method Room Air - Lab Data Lab results reviewed: Yes: I reviewed the patient's lab results. Lab Results 02/22/22 21:16: WBC 7.9, RBC 4.09 L, Hgb 13.2 L, Hct 40.1 L, MCV 98.1 H, MCH 32.2 H, MCHC 32.9, RDW 13.3, Plt Count 135 L, MPV 9.5, Neut % (Auto) 80.7 H, Lymph % (Auto) 10.5, [place] % (Auto) 7.7, Eos % (Auto) 0.1, Baso % (Auto) 0.9, Neut # (Auto) 6.4, Lymph # (Auto) 0.8, [place] # (Auto) 0.6, Eos # (Auto) 0.0, Baso # (Auto) 0.1, ESR 39 H 02/22/22 21:16: Sodium 140, Potassium 3.5, Chloride 104, Carbon Dioxide 26, Anion Gap 13.5, BUN 21 H, Creatinine 1.50 H, Estimated Creat Clear 60, Estimated GFR 46 L, Est GFR ( Amer) 56 L, Glucose 179 H, Calcium 9.1, Total Bilirubin 1.1, AST 32, ALT 24, Alkaline Phosphatase 116, Troponin I 0.04 H, C-Reactive Protein 28.0 H, Total Protein 7.2, Albumin 4.2, Globulin 3.0, Albumin/Globulin Ratio 1.4, Procalcitonin 0.487 02/22/22 21:16: SARS-CoV-2 (PCR) Not detected, Influenza A Untype (PCR) Not detected, Influenza Type B (PCR) Not detected 02/22/22 21:16: TSH 3.72, Thyroxine (T4) 7.3 02/22/22 21:16: Magnesium 1.5 L 02/22/22 23:10: Urine Color Yellow, Urine Appearance Clear, Urine pH 6.0, Ur Specific [place] 1.025, Urine Protein 3+, Urine Glucose (UA) Negative, Urine Ketones Negative, Urine Blood Trace-i, Urine Nitrate Negative, Urine Bilirubin Negative, Urine Urobilinogen 1.0, Ur Leukocyte Esterase Negative, Urine RBC 3-5, Urine WBC Occasional, Ur Squamous Epith Cells Occasional, Urine Bacteria 1+ Result diagrams: 02/22/22 21:16 02/22/22 21:16 Orders (Tests/Meds): ED MEDICATIONS Generic Name Dose Route Start Last Admin Trade Name Freq PRN Reason Stop Dose Admin Sodium Chloride 1,000 mls @ 999 mls/hr 02/22/22 21:30 02/22/22 21:34 Sod Chlor 0.9% 1000ml Bag IV 02/22/22 22:30 999 mls/hr .Q1H1M SUMI Administration Sodium Chloride 1,000 mls @ 999 mls/hr 02/22/22 23:30 02/22/22 23:25 Sod Chlor 0.9% 1000ml Bag IV 02/23/22 00:30 999 mls/hr .Q1H1M SUMI Administration Discontinued Medications Generic Name Dose Route Start Last Admin Trade Name Freq PRN Reason Stop Dose Admin Acetaminophen 1,000 mg 02/22/22 21:28 02/22/22 21:34 Acetaminophen 500mg Tab PO 02/22/22 21:29 1,000 mg ONCE ONE Administration ORDERS Category Date Time Status Troponin I Q3H Lab 02/23/22 00:30 Ordered Troponin I Q3H Lab 02/23/22 03:30 O
[2022-02-22 23:13] LABS: Microscopic, Urine URINE MICROSCOPIC (MICROSCOPIC)
[2022-02-22 23:15] LABS: Appearance,Urine CLEAR (Clear); Bilirubin,Urine Negative (Negative); Blood, Urine TRACE-I (Negative); Color,Urine YELLOW (Yellow); Glucose,Urine (UA) Negative (Negative); Ketones,Urine Negative (Negative); Leukocyte Esterase,Urine Negative (Negative); Nitrate,Urine Negative (Negative); Protein,Urine 3+ (Negative); Specific Gravity, Urine 1.025 (1.005-1.030)
[2022-02-22 23:28] LABS: Bacteria,Urine 1+ /lpf; Squamous Epithelial Cell,Urine Occasional #/hpf (0-5); WBC,Urine Occasional #/hpf (0-3)
== END 2022-02-22 23:42 | disposition home or self-care (01) ==
PROVIDERS: Emergency Provider Emergency Medicine; PCP Internal Medicine Adolescent Medicine
DX: R50.9 Fever, unspecified (principal); R11.10 Vomiting, unspecified; R53.1 Weakness; Z85.9 Personal history of malignant neoplasm, unspecified; Z87.442 Personal history of urinary calculi; F32.A Depression, unspecified; K21.9 Gastro-esophageal reflux disease without esophagitis; E78.5 Hyperlipidemia, unspecified; I10 Essential (primary) hypertension
CPT/HCPCS: 71046; 80053; 81001; 83735; 84145; 84436; 84443; 84484; 85025; 85651; 86140; 93005; 96365; 96366; 99284; C9803; U0003; U0005

== ENCOUNTER → 2022-03-03 12:30 | Outpatient (CLI) | payer MEDICARE, OTHER, SELFPAY ==
[2022-03-03 18:12] LABS: Anion Gap 10.8 mEq/L (5-15); Blood Urea Nitrogen 16 mg/dl (9-20); Calcium 9.1 mg/dl (8.4-10.2); Carbon Dioxide 27 mmol/L (22.0-30.0); Chloride 106 mmol/L (98-107); Estimated Glomerular Filt Rate 66 ml/min (>60); GFR (African American) 79 ML/MIN (>60); Glucose 99 mg/dl (74-100); Magnesium 1.8 mg/dl (1.6-2.3); Potassium 3.8 mmoL/L (3.5-5.1); Sodium 140 mmol/L (136-145)
[2022-03-03 18:43] LABS: Thyroid Stimulating Hormone 3.32 uIU/mL (0.465-4.68)
== END ==
PROVIDERS: PCP Internal Medicine Adolescent Medicine; Visit Provider Internal Medicine Adolescent Medicine
DX: R50.9 Fever, unspecified (principal); E11.9 Type 2 diabetes mellitus without complications; Z79.84 Long term (current) use of oral hypoglycemic drugs
CPT/HCPCS: 80048; 83735; 84443

== ENCOUNTER → 2022-03-09 12:11 | Outpatient (CLI) | payer MEDICARE, OTHER, SELFPAY ==
--- NOTE | 2022-03-09 12:16 | XR_ITS ---
FINAL REPORT CLINICAL HISTORY: Right hip pain FINDINGS: RIGHT HIP Two views of the right hip with an AP pelvis demonstrate no acute fracture or dislocation there are moderate degenerative changes of both hips. The visualized bony structures are well aligned. There are vascular calcifications. IMPRESSION: Moderate degenerative change of both hips with no acute bony abnormality. Reviewed, Interpreted and Dictated by Jake Miller III, MD Transcribed by Raquel Chadwick Authenticated and [facility]
--- NOTE | 2022-03-09 12:16 | XR_ITS ---
FINAL REPORT CLINICAL HISTORY: hip and back pain FINDINGS: SACROILIAC JOINTS Three views demonstrate no acute fracture or dislocation. There are moderate degenerative changes of the SI joints. There also degenerative changes of the lower lumbar spine in both hips. The sacral arches are intact. No soft tissue abnormality is seen. IMPRESSION: Degenerative change with no acute bony abnormality. Reviewed, Interpreted and Dictated by Jake Miller III, MD Transcribed by Raquel Chadwick Authenticated and . [facility]
== END ==
PROVIDERS: PCP Internal Medicine Adolescent Medicine; Visit Provider Internal Medicine Adolescent Medicine
DX: M25.551 Pain in right hip (principal); M53.3 Sacrococcygeal disorders, not elsewhere classified
CPT/HCPCS: 72202; 73502

== ENCOUNTER 2022-12-12 21:13 | Inpatient (IN) | payer MEDICARE, OTHER, SELFPAY ==
[2022-12-12 21:14] VITALS: BP 164/82; PULSE 107; RESP 20; TEMP 39.5; O2SAT 93; BMI 30.7
--- NOTE | 2022-12-12 21:20 | XR_ITS ---
PROCEDURE INFORMATION: Exam: XR Chest Exam date and time: 12/12/2022 9:29 PM Age: 72 years old Clinical indication: Cough and fever; Additional info: Fever, cough TECHNIQUE: Imaging protocol: Radiologic exam of the chest. Views: 1 view. COMPARISON: CR XR CHEST 2V 02/22/2022 9:25 PM FINDINGS: Lungs: Streaky opacity at the right lung base. No lobar consolidation. Pleural spaces: No pneumothorax. Heart/Mediastinum: No cardiomegaly. Bones/joints: No acute abnormality. IMPRESSION: Streaky opacity at the right lung base which may be on the basis of atelectasis or pneumonia.
--- NOTE | 2022-12-12 21:26 | ECG_ITS ---
APPROVED REPORT Exam: Resting ECG HR:99 bpm ECG Measurements Heart Rate 99 AXES ID 191 P 27 QRSd 93 QRS -18 QT 334 T 65 QTc 390 Conclusion SINUS RHYTHM NORMAL ECG UNCONFIRMED REPORT Electronically signed by : Alexis Jessica MD 12/13/2022 20:07:17
[2022-12-12 21:31] VITALS: BP 155/84; PULSE 98; RESP 23; O2SAT 93
--- NOTE | 2022-12-12 21:37 | HMH.EDFEV ---
Discharge Plan Disposition Patient Disposition: Admitted As Inpatient Clinical Impressions Clinical Impression: UTI (urinary tract infection), Severe sepsis with acute organ dysfunction Discharge ED Provider: Florecita (ED),Fidel Multani Fever HPI General Chief Complaint: Fever Stated Complaint: Fever, GI issues Time Seen by Provider: 12/12/22 21:37 Mode of Arrival: EMS Source of Information: Patient, EMS and Medical Record Limitations: No Limitations Description of Symptoms (Recalled from ER Triage Doc. by RN): 72 M presents via EMS from home with 2 days of fever, increased weakness, and nausea/vomiting. Patient is unsure if he's been around anyone sick. 20g LAC per EMS, no meds. Fever in route 102.5 orally. 12 Lead was sinus tach History of Present Illness HPI Narrative: fever and weakness over the last few days with dec po intake MD complaint: fever and weakness Onset (ago): day(s) Relieving factors: nothing Related Data Home Medications Medication Instructions Recorded Confirmed aspirin 81 mg tablet,delayed 81 mg PO DAILY prevent 08/22/17 12/12/22 release (Aspir-) sertraline 100 mg tablet (Zoloft) 100 mg PO Q24H mood 08/22/17 12/12/22 amlodipine 5 mg tablet 10 mg PO ONCE bp 03/03/22 12/12/22 atorvastatin 40 mg tablet 40 mg PO DAILY Cholesterol 03/03/22 12/12/22 Allergies Allergy/AdvReac Type Severity Reaction Status Date / Time No Known Drug Allergies Allergy Unknown Verified 03/03/22 10:45 [NKDA] [facility] Disclaimer: The information contained in this section may have been updated after the patient was seen, as this information can be updated by other users. Medical History (Updated 12/13/22 @ 00:38 by Fidel Bernabe (ED)MD) Acid reflux BPH (benign prostatic hyperplasia) Chronic GERD Colon cancer Diabetes mellitus Hyperlipidemia Hypertension Surgical History History of cholecystectomy History of colon resection Family History Father Coronary artery disease Mother Hypertension Social History Smoking Status: Never smoker second hand exposure: No alcohol intake: never substance use type: other current occupational status: retired Travel in the last 8 weeks: None household members: spouse and children housing: house marital status: caffeine: Yes ROS Obtained: Yes All systems reviewed & no additional complaints except as documented Physical Exam General General appearance: alert Head Head exam: normocephalic Eye Eye exam: Present PERRL and EOMI ENT ENT exam: Present mucous membranes moist Neck Neck exam: Present trachea midline Respiratory Respiratory exam: Present normal lung sounds bilaterally; Absent respiratory distress Cardiovascular Cardiovascular exam: Present regular rate, systolic murmur and +S4 Abdominal Exam Abdominal exam: Present soft Extremities Exam Extremities exam: Present full ROM Neurological Exam Neurological exam: Present alert, oriented X3 and CN II-XII intact; Absent motor sensory deficit Psychiatric Psychiatric exam: Present normal affect Skin Skin exam: Absent rash Medical Decision Making Medical Records Medical records reviewed: Yes I reviewed the patient's medical records. Damien Inquiry Pt receiving controlled substance: No Vital Signs: 12/12/22 21:14 12/12/22 21:31 12/12/22 22:07 Temperature 103.1 F H Temperature Source Oral Oral Pulse Rate 98 H Pulse Rate [Left] 107 H Respiratory Rate 20 23 Blood Pressure 155/84 H Blood Pressure [Right Arm] 164/82 H Blood Pressure Mean [Right Arm] 109 02 Sat by Pulse Oximetry 93 L 93 L Oxygen Delivery Method Room Air 12/12/22 22:01 12/12/22 22:31 12/12/22 23:01 Temperature 97.9 F Temperature Source Oral Pulse Rate 88 81 82 Pulse Rate [Left] Respiratory Rate 24
[2022-12-12 21:42] LABS: Coronavirus 19, PCR Not Detected (NotDetected); Influenza A, PCR Not Detected (NotDetected); Influenza B, PCR Not Detected (NotDetected)
[2022-12-12 21:50] LABS: Basophils % 0.1 % (0.1-2.0); Hematocrit 40.3 % (42.0-52.0); Hemoglobin 13.5 g/dL (14.1-18.0); Lymphocytes % 7.6 % (10-50); Mean Corpuscular HGB Conc 33.4 g/dL (31.8-35.4); Mean Corpuscular Hemoglobin 31.8 pg (27.0-31.2); Mean Platelet Volume 9.3 fl (7.4-10.4); Monocytes # 1.7 K/mm3 (0.1-1.0); Monocytes % 6.4 % (1.7-9.3); Neutrophils # 23.1 K/mm3 (1.8-7.8); Neutrophils % 85.9 % (37.0-80.0); Platelet Count 174 K/mm3 (142-424); Red Blood Count 4.24 M/mm3 (4.60-6.20); White Blood Count 26.9 K/mm3 (4.8-10.8)
--- NOTE | 2022-12-12 21:50 | PC.NURSE ---
Discussed with attending broad spectrum abx. No new orders
[2022-12-12 21:52] LABS: MANUAL DIFFERENTIAL MANUAL DIFFERENTIAL (MANUAL DIFF)
[2022-12-12 21:59] LABS: Activated Partial Thrombo Time 27.3 seconds (22.8-30.6); INR 0.99 (0.9-1.1); Prothrombin Time 10.7 seconds (10.1-12.5)
[2022-12-12 22:00] LABS: Lactic Acid 1.1 mmol/L (0.7-2.1)
[2022-12-12 22:01] VITALS: BP 164/84; PULSE 88; RESP 24; O2SAT 94
[2022-12-12 22:06] LABS: Alanine Aminotransferase 23 U/L (12-78); Albumin Level 4.3 g/dl (3.5-5.0); Albumin/Globulin Ratio 1.2 (1.1-1.8); Alkaline Phosphatase 121 U/L (38-126); Anion Gap 16.3 mEq/L (5-15); Aspartate Amino Transferase 28 U/L (17-59); Bilirubin,Total 1.8 mg/dl (0.2-1.3); Blood Urea Nitrogen 20 mg/dl (9-20); Calcium 8.8 mg/dl (8.4-10.2); Carbon Dioxide 24 mmol/L (22.0-30.0); Chloride 102 mmol/L (98-107); Creatinine Clearance Estimated 59 mL/min (50-200); Estimated Glomerular Filt Rate 46 ml/min (>60); GFR (African American) 55 ML/MIN (>60); Globulin 3.5 g/dL (1.3-3.2); Glucose 174 mg/dl (74-100); Potassium 3.3 mmoL/L (3.5-5.1); Sodium 139 mmol/L (136-145); Total Protein,Serum 7.8 g/dl (6.3-8.2)
[2022-12-12 22:11] LABS: C-Reactive Protein 131.2 mg/L (0-4)
[2022-12-12 22:20] LABS: Troponin I 0.03 ng/ml (0.00-0.034)
[2022-12-12 22:25] LABS: Procalcitonin 0.497 ng/mL (0.0-2.0)
[2022-12-12 22:31] VITALS: BP 162/83; PULSE 81; RESP 20; O2SAT 92
--- NOTE | 2022-12-12 22:34 | CT_ITS ---
PROCEDURE INFORMATION: Exam: CT Abdomen And Pelvis Without And With Contrast Exam date and time: 12/12/2022 11:14 PM Age: 72 years old Clinical indication: Abdominal pain; Prior surgery; Surgery date: 6+ months; Surgery type: Cholecystectomy, partial colectomy; Patient HX: HX of colon cancer; Additional info: Lower abdominal pain, right flank pain TECHNIQUE: Imaging protocol: Computed tomography of the abdomen and pelvis without and with contrast. Radiation optimization: All CT scans at this facility use at least one of these dose optimization techniques: automated exposure control; mA and/or kV adjustment per patient size (includes targeted exams where dose is matched to clinical indication); or iterative reconstruction. Contrast material: ISOVUE; Contrast volume: 75 ml; Contrast route: INTRAVENOUS (IV); REPORTING DATA: Count of CT and Cardiac NM exams in prior 12 months: This patient has received 0 known CTs and 0 known cardiac nuclear medicine studies in the 12 months prior to the current study. COMPARISON: CT ABDOMEN PELVIS W CON 04/12/2019 11:16 AM FINDINGS: Heart: Trace pericardial fluid. Liver: Normal. No mass. Gallbladder and bile ducts: Cholecystectomy changes are stable. Stable mild biliary ectasia post cholecystectomy. Pancreas: Normal. No ductal dilation. Spleen: Normal. No splenomegaly. Adrenal glands: Normal. No mass. Kidneys and ureters: Nonobstructing stone in the left kidney measuring 14 mm maximum size is unchanged. Simple left midpole renal cyst is unchanged. Additional small midpole left renal stone measuring 4 mm is unchanged. Stomach and bowel: There are postsurgical changes in the distal colon which are stable. Stool throughout the colon suggests constipation. No bowel obstruction. Colonic diverticuli are also present without inflammation. Small proximal duodenal diverticulum is unchanged. Appendix: No evidence of appendicitis. Intraperitoneal space: Unremarkable. No free air. No significant fluid collection. Vasculature: Unremarkable. No abdominal aortic aneurysm. Lymph nodes: Subcentimeter nodes in the left iliac chain and bilateral pelvic sidewalls are again present slightly more conspicuous. The largest lymph node on series 5, image 88 measures 1 cm short axis larger than previous where previously was 4 mm short axis in the left superior pelvic sidewall. Urinary bladder: The bladder wall is thickened with perivesicular fat stranding present. Reproductive: The prostate gland is enlarged. Bones/joints: Unremarkable. No acute fracture. Soft tissues: Unremarkable. IMPRESSION: 1. Bladder wall thickening suspicious for cystitis. Prostatomegaly is also present. Correlate for possible outlet obstruction clinically. 2. Minimally progressive left superior pelvic sidewall lymph node suspicious for possible metastasis given history. Differential diagnosis is a reactive node given bladder inflammation. Suggest follow-up with PET-CT.
[2022-12-12 22:35] LABS: Erythrocyte Sedimentation Rate 74 mm/hr (0-20)
[2022-12-12 22:47] LABS: Microscopic, Urine URINE MICROSCOPIC (MICROSCOPIC)
[2022-12-12 22:49] LABS: Appearance,Urine SL CLOUDY (Clear); Bilirubin,Urine Negative (Negative); Blood, Urine 2+ (Negative); Color,Urine YELLOW (Yellow); Glucose,Urine (UA) Negative (Negative); Ketones,Urine Negative (Negative); Leukocyte Esterase,Urine 1+ (Negative); Nitrate,Urine POSITIVE (Negative); Protein,Urine 3+ (Negative); Specific Gravity, Urine 1.025 (1.005-1.030)
[2022-12-12 22:55] LABS: Lymphocytes % 11 % (10-50); Monocytes % 2 % (2-9); Neutrophils % 87 % (42-76); Platelet Estimate Normal; RBC Morphology Normal; Total Cells Counted 100
[2022-12-12 23:01] VITALS: BP 130/54; PULSE 82; RESP 18; TEMP 36.6; O2SAT 93
[2022-12-12 23:21] LABS: Bacteria,Urine 4+ /lpf
--- NOTE | 2022-12-12 23:29 | PC.NURSE ---
paged dr urena @ this time
[2022-12-12 23:35] VITALS: BP 144/71; PULSE 75; RESP 20; O2SAT 93
[2022-12-13] VITALS (9 sets, daily range): BP systolic 125–169; BP diastolic 62–87; PULSE 69–92; RESP 18–24; TEMP 36.3–38.4; O2SAT 92–97; BMI 30.9
--- NOTE | 2022-12-13 00:27 | PC.NURSE ---
pt arrived to floor at this time
[2022-12-13 00:55] LABS: Troponin I 0.04 ng/ml (0.00-0.034)
[2022-12-13 04:06] LABS: Troponin I 0.03 ng/ml (0.00-0.034)
[2022-12-13 06:04] LABS: POC Glucose,Bedside 118 (70-110)
[2022-12-13 06:32] LABS: Basophils % 0.2 % (0.1-2.0); Eosinophils % 0.1 % (0.1-12.0); Hematocrit 39.5 % (42.0-52.0); Hemoglobin 12.7 g/dL (14.1-18.0); Lymphocytes # 1.4 K/mm3 (0.7-4.5); Lymphocytes % 6.5 % (10-50); Mean Corpuscular HGB Conc 32.1 g/dL (31.8-35.4); Mean Corpuscular Hemoglobin 31.4 pg (27.0-31.2); Mean Corpuscular Volume 97.6 fl (80-94); Mean Platelet Volume 9.6 fl (7.4-10.4); Monocytes # 1.2 K/mm3 (0.1-1.0); Monocytes % 5.6 % (1.7-9.3); Neutrophils # 18.6 K/mm3 (1.8-7.8); Neutrophils % 87.8 % (37.0-80.0); Platelet Count 131 K/mm3 (142-424); Red Blood Count 4.04 M/mm3 (4.60-6.20); Red Cell Distribution Width 13.1 % (11.5-17.5); White Blood Count 21.2 K/mm3 (4.8-10.8)
[2022-12-13 06:36] LABS: MANUAL DIFFERENTIAL MANUAL DIFFERENTIAL (MANUAL DIFF)
[2022-12-13 06:43] LABS: Chloride 109 mmol/L (98-107); Potassium 3.9 mmoL/L (3.5-5.1); Sodium 143 mmol/L (136-145)
[2022-12-13 06:46] LABS: Anion Gap 13.9 mEq/L (5-15); Blood Urea Nitrogen 16 mg/dl (9-20); Carbon Dioxide 24 mmol/L (22.0-30.0); Creatinine Clearance Estimated 74 mL/min (50-200); Estimated Glomerular Filt Rate 59 ml/min (>60); GFR (African American) 72 ML/MIN (>60)
[2022-12-13 06:47] LABS: Calcium 8.3 mg/dl (8.4-10.2); Glucose 119 mg/dl (74-100)
--- NOTE | 2022-12-13 07:11 | HMH.PHAINT1 ---
Pharmacy Intervention Comments: MEDICATION RECONCILIATION COMPLETED ON PATIENT USING EXTERNAL FILL HISTORY FROM PHARMACY. -SHIMA ALVAREZ, ROYAD
[2022-12-13 07:31] LABS: Lymphocytes % 13 % (10-50); Monocytes % 2 % (2-9); Neutrophils % 85 % (42-76); Platelet Estimate Slight Decrease; RBC Morphology Normal; Total Cells Counted 100
--- NOTE | 2022-12-13 08:32 | EXP.HP ---
History of Present Illness *Admission Date: 12/13/22 *Reason for visit:: Fever/fatigue/nausea *History of present illness: 72-year-old white male with history of hypertension, type 2 diabetes that has been well controlled and remote colon cancer who presented to the emergency department with 3 days of nausea, vomiting, malaise and fatigue, became extremely tired and almost somnolent and was brought to the ER. In the ER was found to meet criteria for severe sepsis with elevated white count, fever, source of infection is urine. Given appropriate fluid boluses and ceftriaxone admitted to hospital. He feels better on morning rounds this morning. He notes that over the past 3 days had increasing problems with urinary output, increasing pain with urination and increasing frequency of urination. [facility] Disclaimer: The information contained in this section may have been updated after the patient was seen, as this information can be updated by other users. Medical History (Updated 12/13/22 @ 08:34 by Alexis Jessica MD) Acid reflux BPH (benign prostatic hyperplasia) Chronic GERD Colon cancer Diabetes mellitus Hyperlipidemia Hypertension Surgical History History of cholecystectomy History of colon resection Family History Father Coronary artery disease Mother Hypertension Social History (Updated 12/13/22 @ 01:56 by Adriana Bruce RN) Smoking Status: Never smoker second hand exposure: No alcohol intake: never substance use type: other current occupational status: retired Travel in the last 8 weeks: None household members: spouse and children housing: house marital status: caffeine: Yes Meds Home Medications and Allergies Home Medications Medication Instructions Recorded Confirmed Type sertraline 100 mg tablet (Zoloft) 100 mg PO DAILY mood 08/22/17 12/13/22 History amlodipine 5 mg tablet 10 mg PO DAILY Hypertension 03/03/22 12/13/22 History atorvastatin 40 mg tablet 40 mg PO DAILY Cholesterol 03/03/22 12/12/22 History aspirin 81 mg tablet,delayed 81 mg PO DAILY HEART HEALTH 12/13/22 12/13/22 History release New Prescriptions to Start Prescriptions: Allergies Allergy/AdvReac Type Severity Reaction Status Date / Time No Known Drug Allergies Allergy Unknown Verified 03/03/22 10:45 [NKDA] Exam Data for Last 24 hours Vital signs and Labs for Last 24 Hours: Temp Pulse Resp BP Pulse Ox 97.5 F L 72 20 132/74 92 L 12/13/22 04:00 12/13/22 04:00 12/13/22 04:00 12/13/22 04:00 12/13/22 04:00 Laboratory Results - last 24 hr 12/12/22 21:16: WBC 26.9 H*, RBC 4.24 L, Hgb 13.5 L, Hct 40.3 L, MCV 95.0 H, MCH 31.8 H, MCHC 33.4, RDW 13.0, Plt Count 174, MPV 9.3, Neut % (Auto) 85.9 H, Lymph % (Auto) 7.6 L, [place] % (Auto) 6.4, Eos % (Auto) 0.0 L, Baso % (Auto) 0.1, Neut # (Auto) 23.1 H, Lymph # (Auto) 2.0, [place] # (Auto) 1.7 H, Eos # (Auto) 0.0, Baso # (Auto) 0.0, Total Counted 100, Neutrophils % (Manual) 87 H, Lymphocytes % (Manual) 11, Monocytes % (Manual) 2, Platelet Estimate Normal, RBC Morphology Normal 12/12/22 21:16: PT 10.7, INR 0.99, APTT 27.3 12/12/22 21:16: Lactate 1.1 12/12/22 21:16: ESR 74 H 12/12/22 21:16: Sodium 139, Potassium 3.3 L, Chloride 102, Carbon Dioxide 24, Anion Gap 16.3 H, BUN 20, Creatinine 1.50 H, Estimated Creat Clear 59, Estimated GFR 46 L, Est GFR ( Amer) 55 L, Glucose 174 H, Calcium 8.8, Total Bilirubin 1.8 H, AST 28, ALT 23, Alkaline Phosphatase 121, C-Reactive Protein 131.2 H, Total Protein 7.8, Albumin 4.3, Globulin 3.5 H, Albumin/Globulin Ratio 1.2 12/12/22 21:16: Troponin I 0.03, Procalcitonin 0.497 12/12/22 21:31: SARS-CoV-2 (PCR) Not detected, Influenza A Untype (PCR) Not detected, Influenza Type B (PCR) Not detected 12/12/22 22:41: Urine Color Yellow, Urine Appearance Sl cloudy, Urine pH 6.0, Ur Specific [place] 1.0
[2022-12-13 12:34] LABS: POC Glucose,Bedside 191 (70-110)
--- NOTE | 2022-12-13 16:18 | PC.NURSE ---
Pt states around 16:10 he slipped and was on the floor. States he is okay and we helped him up and back to the bed. Dr. Jessica called and is aware.
[2022-12-13 16:36] LABS: POC Glucose,Bedside 168 (70-110)
[2022-12-13 21:59] LABS: POC Glucose,Bedside 117 (70-110)
[2022-12-14] VITALS (9 sets, daily range): BP systolic 134–174; BP diastolic 62–72; PULSE 71–81; RESP 18–22; TEMP 37–37.7; O2SAT 90–95; BMI 30.5
--- NOTE | 2022-12-14 05:17 | PC.NURSE ---
Patient has rested most of the night. No complaints stated
--- NOTE | 2022-12-14 05:44 | ECG_ITS ---
APPROVED REPORT Exam: Resting ECG HR:77 bpm ECG Measurements Heart Rate 77 AXES [place] 199 P 41 QRSd 113 QRS -17 QT 376 T 48 QTc 408 Conclusion SINUS RHYTHM MODERATE INTRAVENTRICULAR CONDUCTION DELAY [110+ ms QRS DURATION] MINIMAL VOLTAGE CRITERIA FOR LVH, CONSIDER NORMAL VARIANT [MEETS CRITERIA IN ONE OF: R(aVL), S(V1), R(V5), R(V5/V6)+S(V1)] BORDERLINE ECG UNCONFIRMED REPORT Electronically signed by : Alexis Jessica MD 12/16/2022 16:28:23
[2022-12-14 06:22] LABS: Basophils % 0.1 % (0.1-2.0); Eosinophils % 0.1 % (0.1-12.0); Hematocrit 34.9 % (42.0-52.0); Hemoglobin 11.3 g/dL (14.1-18.0); Lymphocytes # 1.4 K/mm3 (0.7-4.5); Lymphocytes % 7.2 % (10-50); Mean Corpuscular HGB Conc 32.3 g/dL (31.8-35.4); Mean Corpuscular Hemoglobin 31.7 pg (27.0-31.2); Mean Platelet Volume 10.1 fl (7.4-10.4); Monocytes % 5.4 % (1.7-9.3); Neutrophils # 16.6 K/mm3 (1.8-7.8); Neutrophils % 87.3 % (37.0-80.0); Platelet Count 124 K/mm3 (142-424); Red Blood Count 3.56 M/mm3 (4.60-6.20); Red Cell Distribution Width 13.1 % (11.5-17.5)
[2022-12-14 06:29] LABS: MANUAL DIFFERENTIAL MANUAL DIFFERENTIAL (MANUAL DIFF)
[2022-12-14 06:33] LABS: Anion Gap 14.3 mEq/L (5-15); Blood Urea Nitrogen 17 mg/dl (9-20); Calcium 7.9 mg/dl (8.4-10.2); Carbon Dioxide 22 mmol/L (22.0-30.0); Chloride 109 mmol/L (98-107); Creatinine Clearance Estimated 74 mL/min (50-200); Estimated Glomerular Filt Rate 59 ml/min (>60); GFR (African American) 72 ML/MIN (>60); Glucose 118 mg/dl (74-100); Potassium 3.3 mmoL/L (3.5-5.1); Sodium 142 mmol/L (136-145)
[2022-12-14 06:44] LABS: POC Glucose,Bedside 113 (70-110)
[2022-12-14 07:26] LABS: Lymphocytes % 9 % (10-50); Monocytes % 1 % (2-9); Neutrophils % 90 % (42-76); Total Cells Counted 100
[2022-12-14 07:27] LABS: Platelet Estimate Slight Decrease; RBC Morphology Normal
--- NOTE | 2022-12-14 08:37 | EXP.ACUTE.PN ---
Subjective *Date: 12/14/22 *Time: 08:37 Interval history: Patient feels better, notices better urine flow, no fever, has eaten well. Still very weak and has not been up out of bed. Medical Exam Vital signs and Labs for Last 24 Hours: Vital Signs Temp Pulse Pulse Resp BP Pulse Ox 12/14/22 08:00 99.2 F 80 18 159/62 H 90 L 12/14/22 05:57 71 12/14/22 04:00 99.3 F 81 18 161/63 H 90 L 12/14/22 00:00 73 12/13/22 20:00 88 12/13/22 23:56 98.5 F 83 20 149/72 H 93 L 12/13/22 20:00 101.2 F H 88 22 151/62 H 92 L 12/13/22 16:00 100.5 F H 92 H 24 160/69 H 92 L 12/13/22 12:00 98.8 F 89 20 150/68 H 93 L Intake and Output 12/13/22 12/14/22 12/14/22 19:59 03:59 11:59 Intake Total 1590 / 1830 240 / 1830 Output Total 150 / 600 300 / 600 150 / 600 Balance 1440 / 1230 -300 / 1230 90 / 1230 Intake: Intake, Oral Amount 840 / 1080 240 / 1080 Intake, Total IV Amount 750 / 750 0.9 % Sodium Chloride 1000ML 1, 700 / 700 000 ml @ 100 mls/hr IV .Q10H COUNT INCLUDES THE [facility] Rx#:[id number] Ceftriaxone Sodium 1 gm In 0.9 50 / 50 % Sodium Chloride 50 ml @ 100 mls/hr IV Q24H COUNT INCLUDES THE [facility] Rx#:[id number] Output: Output, Urine Amount 150 / 600 300 / 600 150 / 600 Other: Weight 213 lb 9.6 oz Patient Weight 12/14/22 11:59 Weight 213 lb 9.6 oz Laboratory Results - last 24 hr 12/12/22 22:41: Urine Color Yellow, Urine Appearance Sl cloudy, Urine pH 6.0, Ur Specific [place] 1.025, Urine Protein 3+, Urine Glucose (UA) Negative, Urine Ketones Negative, Urine Blood 2+, Urine Nitrate Positive, Urine Bilirubin Negative, Urine Urobilinogen 2.0, Ur Leukocyte Esterase 1+ A, Urine RBC 10-20, Urine WBC 10-20, Ur Squamous Epith Cells 3-5, Urine Bacteria 4+ 12/13/22 12:07: POC Glucose 191 H 12/13/22 16:25: POC Glucose 168 H 12/13/22 20:23: POC Glucose 117 H 12/14/22 05:56: POC Glucose 113 H 12/14/22 06:00: WBC 19.0 H, RBC 3.56 L, Hgb 11.3 L, Hct 34.9 L, MCV 98.0 H, MCH 31.7 H, MCHC 32.3, RDW 13.1, Plt Count 124 L, MPV 10.1, Neut % (Auto) 87.3 H, Lymph % (Auto) 7.2 L, [place] % (Auto) 5.4, Eos % (Auto) 0.1, Baso % (Auto) 0.1, Neut # (Auto) 16.6 H, Lymph # (Auto) 1.4, [place] # (Auto) 1.0, Eos # (Auto) 0.0, Baso # (Auto) 0.0, Total Counted 100, Neutrophils % (Manual) 90 H, Lymphocytes % (Manual) 9 L, Monocytes % (Manual) 1 L, Platelet Estimate Slight decrease, RBC Morphology Normal 12/14/22 06:00: Sodium 142, Potassium 3.3 L, Chloride 109 H, Carbon Dioxide 22, Anion Gap 14.3, BUN 17, Creatinine 1.20, Estimated Creat Clear 74, Estimated GFR 59, Est GFR ( Amer) 72, Glucose 118 H, Calcium 7.9 L I & O for Labs for Last 24 Hours: Intake & Output 12/11/22 12/12/22 12/13/22 12/14/22 11:59 11:59 11:59 11:59 Intake Total 3660 / 3660 1830 / 1830 Output Total 1500 / 1500 600 / 600 Balance 2160 / 2160 1230 / 1230 Weight 216 lb 5 oz 213 lb 9.6 oz Microbiology Reports for the Last 24 Hours: Microbiology 12/12/22 22:41 Urine,Clean Catch Urine Culture - Preliminary Gram Negative Rods Comment:: Alert, pleasant. Oriented, appears to be systemically more energetic. Lungs clear, heart rate regular, abdomen soft, no edema, nontender extremities. Moves extremities well. Assessment and Plan *Assessment and plan (1) UTI (urinary tract infection): Status: Acute Category: Medical Code(s): N39.0 - Urinary tract infection, site not specified (2) Severe sepsis with acute organ dysfunction: Status: Acute Category: Medical Code(s): A41.9 - Sepsis, unspecified organism; R65.20 - Severe sepsis without septic shock (3) Diabetes mellitus: Status: Acute Category: Medical Code(s): E11.9 - Type 2 diabetes mellitus without complications (4) History of colon cancer: Status: Acute Category: Medical Code(s): Z85.038 - Personal history of other malignant neoplasm of large intesti
--- NOTE | 2022-12-14 10:01 | HMH.OTEV ---
OT Inpatient Evaluation Rehab OT IP Evaluation Start: 12/14/22 08:37 Freq: ONCE Status: Active Protocol: Document 12/14/22 09:57 [facility] (Rec: 12/14/22 10:01 [facility] [id number]) Rehab OT IP Assessment Subjective History Pt oriented x 4 on arrival. Pt agreeable to engage in therapy evaluation. Pt admitted on 12/13/22 due to UTI and sepsis. Prior to being in the hospital, pt lived at home with his . Pt claims he was independent with all ADLs and IADLs. He did not require any type of AE during functional mobility tasks. Pt was also still driving. Pt has a past medical history of: Acid reflux BPH (benign prostatic hyperplasia) Chronic GERD Colon cancer Diabetes mellitus Hyperlipidemia Hypertension Subjective I feel much better than I did . Objective Patient Orientation Person,Place,Birthday,Month Upper Extremity Gross ROM WFL Bed Mobility bed mobility-scooting,bed mobility - supine/sit,bed mobility - rolling Assist Level Supervision/Stand by Transfer Training Sit/Stand Transfer Assist Level Supervision/Stand by Chair Transfer Ability Supervision/Stand by Chair Transfer Technique Sit to/from Ambulatory Chair Transfer Assistive Devices None Lower Body Dressing Ability Standby Assistance Performing Toilet Hygiene Ability Standby Assistance Overall Commode/Toilet Transfer Ability Standby Assistance Commode/Toilet Transfer Technique Sit to/from Ambulatory Rehab OT IP prob,goals,plan Problems Date of Evaluation: 12/14/22 Rehab Potential Rehab Potential Innapropriate for Skilled Therapy Discharge Plan OT Discharge Plan Pt appears to be at her baseline with all functional transfers and ADL independence . Pt can return home with once he is medically stable per physician. Eval Complexity Eval Charge Codes
[2022-12-14 11:05] LABS: POC Glucose,Bedside 136 (70-110)
--- NOTE | 2022-12-14 12:06 | HMH.PTEV ---
Physical Therapy Evaluation Rehab PT IP Evaluation Start: 12/14/22 08:37 Freq: ONCE Status: Active Protocol: Document 12/14/22 09:45 [facility] (Rec: 12/14/22 12:05 [facility] [id number]) Subjective/History History History 72 yowm adm to [facility] with Sepsis and UTI. Hx of HTN, DM, remote hx of colon cancer. He reports he lives with spouse, ramp to enter the home, and he generally ambulates without AD independently. Subjective Subjective He reports no c/o this am, feeling better and increasing strength. Rehab PT IP Eval Objective Appearance Patient Behavior Appropriate Patient Orientation Person,Place,Time Difficulty following instructions none Speech Pattern Clear Ambulation Patient Able to Ambulate Yes Ambulation Observation IP General Gait Pattern Observation Shuffling Step Ambulation Distance (feet) 150 Ambulation Assistive Device None Ambulation Ability Supervision/Stand by Balance Ability to Arise Able, uses arms to help Sitting Balance Steady, safe Standing Balance Steady, wide stance Dynamic Sitting Balance Ability Good Dynamic Standing Balance Ability Fair Transfers Bed Transfer Ability Supervision/Stand by Chair Transfer Ability Supervision/Stand by Sit to Stand Bed Transfer Ability Supervision/Stand by Sit to Stand Chair Transfer Ability Supervision/Stand by ROM All Extremities PT ROM Status WFL MMT All Extremities PT MMT WFL Rehab PT IP prob,goals,plan Problems Date of Evaluation: 12/14/22 Discharge Plan PT Discharge Plan Pt currently appears to be at baseline for all mobility and is appropriate to return home with spouse once medically stable for d/c. Home Health therapy as necessary. G -code Required No Eval Complexity Eval Charge Codes 56297 - High Complexity PHYSICIAN CERTIFICATION: I certify the specified therapy services for Mehul Moulton are required, authorized, and reviewed every 30 days.
[2022-12-14 16:35] LABS: POC Glucose,Bedside 126 (70-110)
--- NOTE | 2022-12-14 18:33 | PC.NURSE ---
PT IS SITTING UP IN THE CHAIR. ALERT AND ORIENTED X4. PT HAS SLEPT ON AND OFF T/O THE SHIFT. AMBULATED WELL WITH PHYSICAL THERAPY. EATING AND DRINKING FAIR. LUNG SOUNDS DIMINISHED. ABDOMEN SOFT/NON TENDER WITH ACTIVE BOWEL SOUNDS. VSS. WILL CONTINUE TO MONITOR.
[2022-12-14 21:43] LABS: Peripheral Smear Review Scanned Result
[2022-12-14 21:56] LABS: POC Glucose,Bedside 152 (70-110)
[2022-12-15] VITALS: PULSE 80
[2022-12-15 04:00] VITALS: BP 168/93; PULSE 90; RESP 20; TEMP 37.5; O2SAT 91; BMI 31.1
[2022-12-15 06:19] LABS: Basophils % 0.2 % (0.1-2.0); Eosinophils # 0.1 K/mm3 (0.0-0.4); Eosinophils % 0.5 % (0.1-12.0); Hematocrit 33.9 % (42.0-52.0); Hemoglobin 11.1 g/dL (14.1-18.0); Lymphocytes # 1.2 K/mm3 (0.7-4.5); Lymphocytes % 8.3 % (10-50); Mean Corpuscular HGB Conc 32.8 g/dL (31.8-35.4); Mean Corpuscular Hemoglobin 31.5 pg (27.0-31.2); Mean Platelet Volume 9.8 fl (7.4-10.4); Monocytes # 0.7 K/mm3 (0.1-1.0); Monocytes % 4.9 % (1.7-9.3); Neutrophils # 12.1 K/mm3 (1.8-7.8); Neutrophils % 86.2 % (37.0-80.0); Platelet Count 157 K/mm3 (142-424); Red Blood Count 3.53 M/mm3 (4.60-6.20)
[2022-12-15 06:20] LABS: POC Glucose,Bedside 116 (70-110)
[2022-12-15 06:22] LABS: MANUAL DIFFERENTIAL MANUAL DIFFERENTIAL (MANUAL DIFF)
[2022-12-15 06:44] LABS: Chloride 110 mmol/L (98-107)
[2022-12-15 06:45] LABS: Potassium 3.1 mmoL/L (3.5-5.1); Sodium 141 mmol/L (136-145)
[2022-12-15 06:48] LABS: Anion Gap 10.1 mEq/L (5-15); Blood Urea Nitrogen 13 mg/dl (9-20); Calcium 7.9 mg/dl (8.4-10.2); Carbon Dioxide 24 mmol/L (22.0-30.0); Creatinine Clearance Estimated 91 mL/min (50-200); Estimated Glomerular Filt Rate 82 ml/min (>60); GFR (African American) 100 ML/MIN (>60); Glucose 110 mg/dl (74-100)
[2022-12-15 07:54] LABS: Lymphocytes % 11 % (10-50); Monocytes % 2 % (2-9); Neutrophils % 87 % (42-76); RBC Morphology Normal; Total Cells Counted 100
[2022-12-15 07:55] LABS: Platelet Estimate Normal
--- NOTE | 2022-12-15 07:57 | EXP.DC.SUM ---
General Admission date:: 12/13/22 Discharge date: 12/15/22 HPI HPI HPI: 72-year-old white male with history of hypertension, type 2 diabetes that has been well controlled and remote colon cancer who presented to the emergency department with 3 days of nausea, vomiting, malaise and fatigue, became extremely tired and almost somnolent and was brought to the ER. In the ER was found to meet criteria for severe sepsis with elevated white count, fever, source of infection is urine. Given appropriate fluid boluses and ceftriaxone admitted to hospital. He feels better on morning rounds this morning. He notes that over the past 3 days had increasing problems with urinary output, increasing pain with urination and increasing frequency of urination. Hospital Course Hospital Course Hospital Course: Patient was admitted, met severe sepsis criteria, 2 placed on IV antibiotics and fluid bolus. [place] better. CT scan showed evidence of urinary retention and cystitis, and given tamsulosin at night. Did well with this. Improved over the next couple of days, white blood cell count is improving and is almost normal this morning. Afebrile for 48 hours. Eating well, up and around, passed PT evaluation. Culture from urine grows gram-negative rods, official sensitivities pending. Plan we did DC home today on cefdinir and tamsulosin. I will see him on Monday in my office in [place]. Exam Data for Last 24 hours Vital signs and Labs for Last 24 Hours: Temp Pulse Resp BP Pulse Ox 99.5 F 90 20 168/93 H 91 L 12/15/22 04:00 12/15/22 04:00 12/15/22 04:00 12/15/22 04:00 12/15/22 04:00 Laboratory Results - last 24 hr 12/14/22 10:55: POC Glucose 136 H 12/14/22 16:28: POC Glucose 126 H 12/14/22 21:45: POC Glucose 152 H 12/15/22 05:43: WBC 14.0 H D, RBC 3.53 L, Hgb 11.1 L, Hct 33.9 L, MCV 96.0 H, MCH 31.5 H, MCHC 32.8, RDW 13.0, Plt Count 157 D, MPV 9.8, Neut % (Auto) 86.2 H, Lymph % (Auto) 8.3 L, [place] % (Auto) 4.9, Eos % (Auto) 0.5, Baso % (Auto) 0.2, Neut # (Auto) 12.1 H, Lymph # (Auto) 1.2, [place] # (Auto) 0.7, Eos # (Auto) 0.1, Baso # (Auto) 0.0, Total Counted 100, Neutrophils % (Manual) 87 H, Lymphocytes % (Manual) 11, Monocytes % (Manual) 2, Platelet Estimate Normal, RBC Morphology Normal 12/15/22 05:43: Sodium 141, Potassium 3.1 L, Chloride 110 H, Carbon Dioxide 24, Anion Gap 10.1, BUN 13, Creatinine 0.90 D, Estimated Creat Clear 91, Estimated GFR 82, Est GFR ( Amer) 100 D, Glucose 110 H, Calcium 7.9 L 12/15/22 06:12: POC Glucose 116 H I & O for Last 24 hours: Intake & Output 12/12/22 12/13/22 12/14/22 12/15/22 11:59 11:59 11:59 11:59 Intake Total 3660 / 3660 1830 / 1830 4396 / 4396 Output Total 1500 / 1500 600 / 600 600 / 600 Balance 2160 / 2160 1230 / 1230 3796 / 3796 Weight 216 lb 5 oz 213 lb 9.6 oz 217 lb 12.8 oz Microbiology Reports for the Last 24 Hours: Microbiology 12/12/22 21:16 Blood Blood Culture - Preliminary NO GROWTH AFTER 48 HOURS 12/12/22 21:16 Blood Blood Culture - Preliminary NO GROWTH AFTER 48 HOURS 12/12/22 22:41 Urine,Clean Catch Urine Culture - Preliminary Gram Negative Rods Constitutional Constitutional: no acute distress *Routine HEENT Exam Head: Present normocephalic Eye: Present EOMI and PERRL ENT: Present mucous membranes moist *Routine Neck Exam Neck: Present supple; Absent lymphadenopathy *Routine Respiratory Exam Respiratory: Present CTA bilaterally *Routine Cardiovascular Exam Cardiovascular: Present RRR *Routine Abdominal Exam Abdominal: Present soft and normoactive bowel sounds; Absent tenderness *Routine Extremities Exam Extremities: Absent cyanosis, clubbing or edema *Routine Skin Exam Skin: Present warm; Absent rash *Routine Neurological Exam Neurological: Present alert and oriented X3 Results Data Completed and Pending Labs on day of discharge: Labs from last 24 hours
[2022-12-15 08:00] VITALS: BP 164/85; PULSE 112; RESP 20; TEMP 37.2; O2SAT 92
--- NOTE | 2022-12-15 08:29 | HMH.PHAINT1 ---
Pharmacy Intervention Comments: Discharge medication counseling completed. Patient was starting the following new meds: -tamsulosin: once daily, side effects could include dizziness. Recommended that patient take right before bed -cefdinir: twice daily, side effects could include stomach upset and/or diarrhea and that taking with food can help to avoid this Patient and loved one present verbalized understand and had no questions.
--- NOTE | 2022-12-16 13:27 | CARE MANAGER ---
Attempted post-discharge phone interview, no answer. Not able to leave a message as voicemail not set up.
== END 2022-12-15 09:21 | disposition home or self-care (01) | DRG 872 ==
LOC: ER 23:16 → 2ND 23:42
PROVIDERS: Admitting Provider Family Medicine; Emergency Provider Emergency Medicine; PCP Internal Medicine Adolescent Medicine; Visit Provider Internal Medicine Adolescent Medicine
DX: A41.9 Sepsis, unspecified organism (principal); N39.0 Urinary tract infection, site not specified; K21.9 Gastro-esophageal reflux disease without esophagitis; R65.20 Severe sepsis without septic shock; E11.9 Type 2 diabetes mellitus without complications; E78.5 Hyperlipidemia, unspecified; Z85.038 Personal history of other malignant neoplasm of large intestine; N40.0 Benign prostatic hyperplasia without lower urinary tract symptoms; Z79.899 Other long term (current) drug therapy
CPT/HCPCS: 36415; 71045; 74178; 80048; 80053; 81001; 82962; 83036; 83605; 84145; 84484; 85007; 85025; 85610; 85651; 85730; 86140; 87040; 87086; 87088; 87186; 87636; 93005; 97163; 97165; 99285; C9803; J0131; J0696; J2405; Q9967; U0003; U0005

== ENCOUNTER 2024-01-14 01:27 | Inpatient (IN) | payer MEDICARE, OTHER, SELFPAY ==
[2024-01-14] VITALS (9 sets, daily range): BP systolic 139–187; BP diastolic 57–93; PULSE 65–78; RESP 17–19; TEMP 36.7–39.5; O2SAT 93–98; BMI 31.5; BMI 31.4
[2024-01-14 01:48] LABS: Basophils # 0.1 K/mm3 (0-0.2); Basophils % 0.3 % (0.1-2.0); Eosinophils # 0.1 K/mm3 (0.0-0.4); Eosinophils % 0.4 % (0.1-12.0); Hematocrit 39.1 % (42.0-52.0); Lymphocytes # 1.9 K/mm3 (0.7-4.5); Lymphocytes % 9.2 % (10-50); Mean Corpuscular HGB Conc 33.3 g/dL (31.8-35.4); Mean Corpuscular Hemoglobin 32.8 pg (27.0-31.2); Mean Corpuscular Volume 98.6 fl (80-94); Mean Platelet Volume 9.5 fl (7.4-10.4); Monocytes # 1.1 K/mm3 (0.1-1.0); Monocytes % 5.3 % (1.7-9.3); Neutrophils # 17.3 K/mm3 (1.8-7.8); Neutrophils % 84.9 % (37.0-80.0); Platelet Count 161 K/mm3 (142-424); Red Blood Count 3.96 M/mm3 (4.60-6.20); Red Cell Distribution Width 13.5 % (11.5-17.5); White Blood Count 20.3 K/mm3 (4.8-10.8)
[2024-01-14] MEDS: LACTATED RINGERS 1000ML 1,000 ML 999 ML IV ×2 (01:48→02:09)
[2024-01-14] MEDS: ACETAMINOPHEN 500MG TAB 1000 MG PO ×2 (01:48→18:00)
[2024-01-14 01:49] LABS: Chloride 110 mmol/L (98-107); Potassium 3.8 mmoL/L (3.5-5.1); Sodium 141 mmol/L (136-145)
[2024-01-14 01:50] LABS: MANUAL DIFFERENTIAL MANUAL DIFFERENTIAL (MANUAL DIFF)
[2024-01-14 01:52] LABS: Alanine Aminotransferase 20 U/L (12-78); Albumin Level 4.5 g/dl (3.5-5.0); Albumin/Globulin Ratio 1.4 (1.1-1.8); Alkaline Phosphatase 119 U/L (38-126); Anion Gap 11.8 mEq/L (5-15); Aspartate Amino Transferase 25 U/L (17-59); Bilirubin,Total 1.5 mg/dl (0.2-1.3); Blood Urea Nitrogen 20 mg/dl (9-20); Carbon Dioxide 23 mmol/L (22.0-30.0); Creatinine Clearance Estimated 60 mL/min (50-200); Estimated Glomerular Filt Rate 46 ml/min (>60); GFR (African American) 55 ML/MIN (>60); Globulin 3.3 g/dL (1.3-3.2); Total Protein,Serum 7.8 g/dl (6.3-8.2)
[2024-01-14 01:53] LABS: Calcium 9.4 mg/dl (8.4-10.2); Glucose 140 mg/dl (74-100)
[2024-01-14 01:59] LABS: Lymphocytes % 9 % (10-50); Monocytes % 6 % (2-9); Neutrophils % 85 % (42-76); Platelet Estimate Normal; RBC Morphology Normal; Total Cells Counted 100
--- NOTE | 2024-01-14 01:59 | XR_ITS ---
PROCEDURE INFORMATION: Exam: XR Chest Exam date and time: 01/14/2024 2:21 AM Age: 73 years old Clinical indication: Fever TECHNIQUE: Imaging protocol: Radiologic exam of the chest. Views: 1 view. Total images: 1 COMPARISON: CR XR CHEST PORTABLE 12/12/2022 9:29 PM FINDINGS: Lungs: Mild bibasilar crowding/atelectasis. No airspace consolidation, vascular congestion, or interstitial edema. Pleural spaces: Unremarkable. No pleural effusion. No pneumothorax. Heart/Mediastinum: Unremarkable. No cardiomegaly. No mediastinal widening or hilar enlargement. Vasculature: Atherosclerotic aortic arch. Mild tortuosity of the thoracic aorta. Bones/joints: Moderate degenerative changes bilateral shoulders and AC joints. Partially visualized moderate degenerative changes thoracic spine. Other findings: Lordotic positioning. Rotation towards the right. IMPRESSION: No radiographically acute cardiopulmonary process.
--- NOTE | 2024-01-14 01:59 | CT_ITS ---
PROCEDURE INFORMATION: Exam: CT Abdomen And Pelvis With Contrast Exam date and time: 01/14/2024 2:06 AM Age: 73 years old Clinical indication: Abdominal pain; Additional info: Diffuse abd discomfort, nausea TECHNIQUE: Imaging protocol: Computed tomography of the abdomen and pelvis with contrast. Total images: 330 Radiation optimization: All CT scans at this facility use at least one of these dose optimization techniques: automated exposure control; mA and/or kV adjustment per patient size (includes targeted exams where dose is matched to clinical indication); or iterative reconstruction. Contrast material: ISOVUE; Contrast volume: 75 ml; Contrast route: IV; COMPARISON: CT ABDOMEN PELVIS WO/W CON 12/12/2022 11:14 PM FINDINGS: Lungs: Calcified right lower lobe granuloma. Lung bases are otherwise clear. Heart: Normal heart size. Coronary arteries: Prominent coronary artery calcifications. Liver: Stable tiny subcentimeter hypodensity in the left hepatic lobe, too small to characterize but statistically a cyst. Liver is otherwise unremarkable. Gallbladder and biliary ducts: Status post cholecystectomy. Stable mild biliary ectasia compatible with post cholecystectomy status. Pancreas: Normal. No ductal dilation. Spleen: Normal. No splenomegaly. Adrenal glands: Normal. No mass. Kidneys and ureters: Similar left nephrolithiasis including a 15 mm staghorn type calculus in the midpole. No hydronephrosis. Small left renal cortical cyst. Unremarkable right kidney. No ureteral stones. Stomach and bowel: Collapsed stomach. Small duodenal diverticulum. No ileus or bowel obstruction. Unremarkable small bowel. Unremarkable terminal ileum. Post surgical anastomosis in a loop of distal small bowel. Moderate colonic and rectal stool burden. Moderate colonic diverticulosis without acute diverticulitis. Postsurgical changes of the rectosigmoid junction. Appendix: Normal appendix. Intraperitoneal space: Unremarkable. No free air. No significant fluid collection. Vasculature: Numerous pelvic phleboliths. Lymph nodes: Similar prominent bilateral inguinal and femoral lymph nodes. Prior 10 mm left iliac lymph node has decreased in size 7 mm. Urinary bladder: Mild circumferential bladder wall thickening. Reproductive: Mild prostatomegaly at 5 cm with dystrophic calcifications. Bones/joints: Osseous demineralization. Moderate degenerative changes thoracolumbar spine including diffuse ankylosis. Moderate degenerative changes bilateral hips. Ankylosis bilateral SI joints. Soft tissues: Partially included minor bilateral gynecomastia. Postsurgical scarring midline lower abdominal wall. IMPRESSION: 1. No acute intra-abdominal or pelvic process. 2. Mild bladder wall thickening, improved from the prior study. Differential includes cystitis, outlet obstruction, or incomplete distension. 3. Prior 10 mm left iliac lymph node has decreased in size to 7 mm. 4. Sequela of constipation. 5. Colonic diverticulosis without diverticulitis. 6. Left nephrolithiasis without obstructive uropathy. 7. Multiple additional chronic and incidental findings. COMMENTS: Consistent with the [employer]'s Incidental Findings Committee white paper (J Am Lele Radiol 2018): Any incidental renal lesion less than 1 cm or classified as too small to characterize, or any incidental cystic renal lesion characterized as simple-appearing, is likely benign. No follow-up imaging is recommended for these lesions per consensus recommendations based on imaging criteria.
--- NOTE | 2024-01-14 02:11 | ED_ITS ---
Discharge Plan Disposition Patient Disposition: Admitted Prescriptions Prescriptions: No Action sertraline [Zoloft] 100 mg tablet 100 mg PO DAILY amlodipine 5 mg tablet 10 mg PO DAILY atorvastatin 40 mg tablet 40 mg PO DAILY Patient Comments: TAKE 1 TABLET 1 TIME EACH DAY aspirin 81 mg Tablet,Delayed Release (Dr/Ec) 81 mg PO DAILY cefdinir 300 mg capsule 300 mg PO BID Qty: 14 0RF tamsulosin 0.4 mg capsule 0.4 mg PO HS Qty: 30 0RF Referrals Follow up/Referrals: Alexis Jessica MD [Primary Care Provider] - See instructions Clinical Impressions Clinical Impression: Sepsis Qualifiers: Severe sepsis shock status: without septic shock Instructions Patient Instructions: DI for Urinary Tract Infection (UTI), DI for Urinary Tract Infection in Children Discharge ED Provider: Mayuri Alvarado Adult HPI General Chief complaint: Urogenital-Male Stated complaint: weakness,nausea,urge to use bathroom,but can't go Time Seen by Provider: 01/14/24 01:41 Mode of Arrival: Ambulatory Source of Information: Patient and Spouse Limitations: No Limitations Description of Symptoms (Recalled from ER Triage Doc. by RN): Patient reports that he's been having difficulty urinating for several days. Reports that he will have the urge to urinate, dysuria, and only a small amount of output. Patient states that it has been at least 3 days since his last normal void. Patient reports nausea, without vomiting. Denies other abdominal pain, denies diarrhea. History of Present Illness HPI narrative: 73-year-old male with a history of UTI, colon cancer, diabetes, hypertension presents to the ER for concerns of generalized weakness and difficulty urinating for multiple days. Patient reports he is frequently having the urge to urinate, has burning with urination, and only a small amount of urine comes out. He states he has been having the symptoms for at least 3 days. He has had nausea, no vomiting, he does have fever on arrival in the ER, he states he has not taken any medications for the this problem. He does have a history of BPH on daily tamsulosin. His other medications include amlodipine and atorvastatin. Related Data Home Medications Medication Instructions Recorded Confirmed sertraline 100 mg tablet (Zoloft) 100 mg PO DAILY mood 08/22/17 12/13/22 amlodipine 5 mg tablet 10 mg PO DAILY Hypertension 03/03/22 12/13/22 atorvastatin 40 mg tablet 40 mg PO DAILY Cholesterol 03/03/22 12/12/22 aspirin 81 mg tablet,delayed 81 mg PO DAILY HEART HEALTH 12/13/22 12/13/22 release Previous Rx's Medication Instructions Recorded cefdinir 300 mg capsule 300 mg PO BID #14 caps 12/15/22 tamsulosin 0.4 mg capsule 0.4 mg PO HS #30 caps 12/15/22 Allergies Allergy/AdvReac Type Severity Reaction Status Date / Time No Known Drug Allergies Allergy Unknown Verified 03/03/22 10:45 [NKDA] [facility] Disclaimer: The information contained in this section may have been updated after the patient was seen, as this information can be updated by other users. Medical History (Updated 01/14/24 @ 03:13 by Mayuri Alvarado MD) Chronic GERD Diabetes mellitus BPH (benign prostatic hyperplasia) Acid reflux Colon cancer Hyperlipidemia Hypertension Surgical History History of colon resection History of cholecystectomy Family History Father Coronary artery disease Mother Hypertension Social History (Updated 12/13/22 @ 01:56 by Adriana Bruce RN) Smoking Status: Former smoker second hand exposure: No alcohol intake: never substance use type: other current occupational status: retired Travel in the last 8 weeks: None household members: spouse and children housing: house marital status: caffeine: Yes ROS Obtained: Yes All systems reviewed & no additional complaints except as documented Constitutional Constitutional: Denies chills, Reports fever(s), Denies headache(s) and Reports weakness (Generalized) Eyes Eyes: Denies change in vision ENT Ears, Nose, Mouth, and Throat: Denies dizziness, Denies headache(s), Denies nasal congestion and Denies sore throat Cardiovascular Cardiovascular: Denies chest pain, Denies dyspnea and Denies leg edema Respiratory Respiratory: Denies cough and Denies dyspnea Gastrointestinal Gastrointestingal: Reports abdominal pain and nausea; Denies constipation, diarrhea or vomiting Genitourinary Male Genitourinary: Reports difficulty urinating, Denies flank pain, Denies testicular pain, Reports urinary frequency, Reports urinary urgency and Reports other (Dysuria) Musculoskeletal Musculoskeletal: Denies arthralgias, Denies myalgias, Denies numbness and Denies tingling Integumentary/Breasts Skin/Breast: Denies change in pigmentation Neurologic Neurologic: Denies dizziness, Denies headache(s), Denies numbness, Denies tingling and Reports weakness (Generalized) Physical Exam General General appearance: alert and in no apparent distress Head Head exam: atraumatic and normocephalic Eye Eye exam: Present PERRL and EOMI ENT ENT exam: Present mucous membranes moist Neck Neck exam: Present normal inspection and full ROM Chest Chest inspection: Present symmetric chest wall rise Respiratory Respiratory exam: Present normal lung sounds bilaterally; Absent respiratory distress, wheezes or stridor Cardiovascular Cardiovascular exam: Present regular rate and normal rhythm Abdominal Exam Abdominal exam: Present soft and tenderness (Mild diffuse); Absent distention, guarding, rebound or rigidity Extremities Exam Extremities exam: Present full ROM Back Exam Back exam: Absent CVA tenderness (R) or CVA tenderness (L) Neurological Exam Neurological exam: Present alert and oriented X3; Absent motor sensory deficit Psychiatric Psychiatric exam: Present normal affect and normal mood Skin Skin exam: Present warm and dry Medical Decision Making Medical Records Medical records reviewed: Yes I reviewed the patient's medical records. MR Comment: Patient has previously been admitted for severe sepsis with urinary tract infection just over 1 year ago. Urine culture at that time was positive for E. coli. He had presented with similar symptoms as those identified today. Damien Inquiry Pt receiving controlled substance: No Vital Signs: 01/14/24 01:29 01/14/24 02:00 01/14/24 02:30 Temperature 101.0 F H Temperature Source Oral Pulse Rate 71 72 Pulse Rate [Left Radial] 76 Respiratory Rate 18 18 Blood Pressure 162/75 H 166/71 H Blood Pressure [Right Arm] 187/91 H Blood Pressure Mean [Right Arm] 123 Blood Pressure Source [Right Arm] Automatic Cuff Blood Pressure Position [Right Arm] Sitting 02 Sat by Pulse Oximetry 98 96 93 L Oxygen Delivery Method Room Air Room Air Lab Data Lab Results 01/14/24 01:37: WBC 20.3 H*, RBC 3.96 L, Hgb 13.0 L, Hct 39.1 L, MCV 98.6 H, MCH 32.8 H, MCHC 33.3, RDW 13.5, Plt Count 161, MPV 9.5, Neut % (Auto) 84.9 H, Lymph % (Auto) 9.2 L, Citrus % (Auto) 5.3, Eos % (Auto) 0.4, Baso % (Auto) 0.3, Neut # (Auto) 17.3 H, Lymph # (Auto) 1.9, Citrus # (Auto) 1.1 H, Eos # (Auto) 0.1, Baso # (Auto) 0.1, Total Counted 100, Neutrophils % (Manual) 85 H, Lymphocytes % (Manual) 9 L, Monocytes % (Manual) 6, Platelet Estimate Normal, RBC Morphology Normal, Sodium 141, Potassium 3.8, Chloride 110 H, Carbon Dioxide 23, Anion Gap 11.8, BUN 20, Creatinine 1.50 H, Estimated Creat Clear 60, Estimated GFR 46 L, E st GFR ( Amer) 55 L, Glucose 140 H, Calcium 9.4, Total Bilirubin 1.5 H, AST 25, ALT 20, Alkaline Phosphatase 119, Total Protein 7.8, Albumin 4.5, G lobulin 3.3 H, Albumin/Globulin Ratio 1.4 01/14/24 02:20: Urine Color Yellow, Urine Appearance Clear, Urine pH 6.0, Ur Specific [place] 1.025, Urine Protein 3+, Urine Glucose (UA) Negative, Urine Ketones Negative, Urine Blood 1+, Urine Nitrate Negative, Urine Bilirubin Negative, Urine Urobilinogen 2.0, Ur Leukocyte Esterase 1+ A, Urine RBC 5-10, Urine WBC 5-10, Ur Squamous Epith Cells Occasional, Urine Bacteria 1+ 01/14/24 01:37 01/14/24 01:37 Orders (Tests/Meds): ED MEDICATIONS Generic Name Dose Route Start Last Admin Trade Name Freq PRN Reason Stop Dose Admin Vancomycin HCl 2,000 mg/ 500 mls @ 250 mls/hr 01/14/24 03:00 01/14/24 03:08 Sodium Chloride IV 01/14/24 04:59 250 mls/hr ONCE ONE Administration Miscellaneous 1 each 01/14/24 03:00 01/14/24 03:09 Vancomycin Consult Request NOTAPPLIC 02/13/24 02:59 Not Given CONSULT PHARMACY [facility] Sodium Chloride 10 ml 01/14/24 02:21 01/14/24 02:25 Sodium Chloride 0.9% 10ml Syr (Rad Only) IV 02/13/24 02:20 10 ml NEEDED PRN Administration Maintain IV Site Discontinued Medications Generic Name Dose Route Start Last Admin Trade Name Shaun PRN Reason Stop Dose Admin Acetaminophen 1,000 mg 01/14/24 01:41 01/14/24 01:48 Acetaminophen 500mg Tab PO 01/14/24 01:42 1,000 mg ONCE ONE Administration Lactated Ringer's 1,000 mls @ 999 mls/hr 01/14/24 01:42 01/14/24 01:48 Lactated Ringer's 1000 Ml Bag IV 01/14/24 02:42 999 mls/hr .Q1H1M ONE Administration Piperacillin Sod/Tazobactam 100 mls @ 200 mls/hr 01/14/24 02:01 01/14/24 02:09 Sod 4.5 gm/ Sodium Chloride IV 01/14/24 02:30 Not Given ONCE ONE Lactated Ringer's 1,000 mls @ 999 mls/hr 01/14/24 02:01 01/14/24 02:09 Lactated Ringer's 1000 Ml Bag IV 01/14/24 03:01 999 mls/hr .Q1H1M ONE Administration Piperacillin Sod/Tazobactam 100 mls @ 200 mls/hr 01/14/24 02:05 01/14/24 02:22 Sod 4.5 gm/ Sodium Chloride IV 01/14/24 02:34 200 mls/hr ONCE ONE Administration Iopamidol 75 ml 01/14/24 02:21 01/14/24 02:25 Iopamidol-370 (76%);100ml Bottle IV 01/14/24 02:22 75 ml ONCE ONE Administration ORDERS Category Date Time Status CT abdomen pelvis w con Stat Cat Scan 01/14/24 01:59 Completed CXR --portable [XR chest portable] Stat Exams 01/14/24 01:59 Completed CBC w/Auto Diff [Complete Blood Count Auto Diff] Stat Lab 01/14/24 01:37 Completed CMP [Comprehensive Metabolic Panel] Stat Lab 01/14/24 01:37 Completed Urinalysis and Microscopic Stat Lab 01/14/24 02:20 Completed Blood Culture Stat Micro 01/14/24 02:22 Received Urine Culture Stat Micro 01/14/24 02:20 Received Medical Decision Narrative: In summary, this 73-year-old male presents to the emergency department today with dysuria, urinary urgency, frequency, fever, generalized malaise. On initial evaluation patient is hemodynamically stable, febrile to 101, not tachycardic, not hypotensive, abdomen diffusely mildly tender without rebound or guarding, lungs clear bilaterally. Differential diagnosis includes but is not limited to urinary tract infection, pyelonephritis, sepsis, kidney dysfunction, patient has history of prior severe urinary tract infection with sepsis as well as diabetes and prior colon cancer all of which are comorbidities of her current condition and I did consider these in my decision making today including scanning the patient's abdomen with CT given the diffuse tenderness and concern for possible recurrent malignancy. Based on these concerns, I ordered serum labs, urine studies initially. Labs reviewed and demonstrate significant leukocytosis, this with patient SIRS finding of fever as well as likely source of urinary tract is concerning for sepsis. Patient is receiving Zosyn, blood cultures being performed, I also decided to perform CT scan of the abdomen to rule out other acute intra-abdominal pathology. Chest x-ray is also being performed for thorough sepsis workup. On additional review of labs, patient has new kidney dysfunction with acute kidney injury, creatinine 1.50. Patient is receiving 2 L fluid bolus, he has been hemodynamically stable and is tolerating oral intake so full 30 mL/KG fluid bolus is not being administered at this time. Given high suspicion for source is urinary tract, Zosyn is the only broad-spectrum antibiotic being administered at this time. Patient is also receiving acetaminophen. Chest x-ray personally interpreted does not demonstrate any acute thoracic abnormality, see radiology read from observation. UA was not convincing for infection, patient does have few WBCs, RBCs, 1+ bacteria, but he has negative nitrates. Urine culture pending. Since the urine is not convincing for infection which was my initial most suspected source, I am adding vancomycin to cover more broadly for gram-positive's in case he does not have just a gram-negative infection like would be expected in the urine. CT abdomen pelvis personally interpreted demonstrates no perinephric stranding, no acute intra-abdominal pathology, see radiology read for final interpretation. Patient requires admission for continued management of sepsis with kidney dysfunction and monitoring of blood cultures. He and his family are in agreement with this plan. I discussed this case with the hospitalist who has accepted the patient for admission. Critical Care Critical Care Time Critical Care Time: Yes Attestation: On 01/14/24, the high probability of a clinically significant, sudden or life threatening deterioration of the following system(s) (renal, cardiac) required my full and direct attention, intervention and personal management. The time I documented below is in addition to time spent performing reported procedures but includes the following listed in this critical care notation. Total Time Total Critical Care Time: 35
[2024-01-14] MEDS: PIPERACILLIN/TAZO 4.5 GM in 0.9 % SODIUM CHLORIDE 100 ML IV (02:22)
[2024-01-14] MEDS: IOPAMIDOL-370 (76%);100ML BOTTLE 75 ML IV (02:25)
[2024-01-14] MEDS: SODIUM CHLORIDE 0.9% 10ML SYR (RAD ONLY) 10 ML IV (02:25)
[2024-01-14 02:30] LABS: Appearance,Urine CLEAR (Clear); Bilirubin,Urine Negative (Negative); Blood, Urine 1+ (Negative); Color,Urine YELLOW (Yellow); Glucose,Urine (UA) Negative (Negative); Ketones,Urine Negative (Negative); Leukocyte Esterase,Urine 1+ (Negative); Microscopic, Urine URINE MICROSCOPIC (MICROSCOPIC); Nitrate,Urine Negative (Negative); Protein,Urine 3+ (Negative); Specific Gravity, Urine 1.025 (1.005-1.030)
[2024-01-14 02:40] LABS: Squamous Epithelial Cell,Urine Occasional #/hpf (0-5)
[2024-01-14 02:41] LABS: Bacteria,Urine 1+ /lpf
--- NOTE | 2024-01-14 02:50 | PC.NURSE ---
Spoke to Gary Joiner from [facility] pharmacy. He confirmed the Vancomycin dose of 2 grams tonight and to follow with our pharmacy for further dosing.
[2024-01-14] MEDS: VANCOMYCIN HCL 2,000 MG in 0.9 % SODIUM CHLORIDE 500 ML 250 MG IV (03:08)
--- NOTE | 2024-01-14 03:13 | PC.NURSE ---
CONTACTED FOR BED ASSIGNMENT, SPOKE WITH WAYNE PETERS. DX: SEPSIS, HOSPITALIST
--- NOTE | 2024-01-14 03:20 | P.HP_ITS ---
History of Present Illness *Admission Date: 01/14/24 *Reason for visit:: fever *History of present illness: This is a 73-year-old white male with PMHx of hypertension, type 2 diabetes that has been well controlled, BPH and remote colon cancer who presented to the emergency department with 3 days of fever, nausea, vomiting, malaise and fatigue. Patient reports he is frequently having the urge to urinate, has burning with urination, and only a small amount of urine comes out. In the ER was found to meet criteria for severe sepsis with elevated white count, fever, source of infection is urine. Given appropriate fluid boluses. Admitted for further treatment and management [facility] Medical History (Updated 01/14/24 @ 06:39 by Talib Rizzo APRN) Chronic GERD Diabetes mellitus BPH (benign prostatic hyperplasia) Acid reflux Colon cancer Hyperlipidemia Hypertension Surgical History History of colon resection History of cholecystectomy Family History Father Coronary artery disease Mother Hypertension Social History Smoking Status: Former smoker second hand exposure: No alcohol intake: never substance use type: other current occupational status: retired Travel in the last 8 weeks: None household members: spouse and children housing: house marital status: caffeine: Yes Review of Systems Review of Systems Review of systems:: pertinent systems reviewed and negative unless documented below Constitutional Constitutional: Reports weakness (Generalized) ENT Ears, Nose, Mouth, and Throat: Denies dizziness *Musculoskeletal Musculoskeletal: Denies numbness and Denies tingling *Neurologic Neurologic: Denies dizziness, Denies numbness, Denies tingling and Reports weakness (Generalized) Meds Home Medications and Allergies Home Medications Medication Instructions Recorded Confirmed Type amlodipine 5 mg tablet 10 mg PO DAILY Hypertension 03/03/22 01/14/24 History atorvastatin 40 mg tablet 40 mg PO DAILY Cholesterol 03/03/22 01/14/24 History tamsulosin 0.4 mg capsule 0.4 mg PO HS #30 caps 12/15/22 01/14/24 Rx New Prescriptions to Start Prescriptions: Allergies Allergy/AdvReac Type Severity Reaction Status Date / Time No Known Drug Allergies Allergy Unknown Verified 03/03/22 10:45 [NKDA] Exam Data for Last 24 hours Vital signs and Labs for Last 24 Hours: Temp Pulse Resp BP Pulse Ox O2 Del Method 101.0 F H 72 18 166/71 H 93 L Room Air 01/14/24 01:29 01/14/24 02:30 01/14/24 02:00 01/14/24 02:30 01/14/24 02:30 01/14/24 02:00 Laboratory Results - last 24 hr 01/14/24 01:37: WBC 20.3 H*, RBC 3.96 L, Hgb 13.0 L, Hct 39.1 L, MCV 98.6 H, MCH 32.8 H, MCHC 33.3, RDW 13.5, Plt Count 161, MPV 9.5, Neut % (Auto) 84.9 H, Lymph % (Auto) 9.2 L, Gulf % (Auto) 5.3, Eos % (Auto) 0.4, Baso % (Auto) 0.3, Neut # (Auto) 17.3 H, Lymph # (Auto) 1.9, Gulf # (Auto) 1.1 H, Eos # (Auto) 0.1, Baso # (Auto) 0.1, Total Counted 100, Neutrophils % (Manual) 85 H, Lymphocytes % (Manual) 9 L, Monocytes % (Manual) 6, Platelet Estimate Normal, RBC Morphology Normal, Sodium 141, Potassium 3.8, Chloride 110 H, Carbon Dioxide 23, Anion Gap 11.8, BUN 20, Creatinine 1.50 H, Estimated Creat Clear 60, Estimated GFR 46 L, Est GFR ( Amer) 55 L, Glucose 140 H, Calcium 9.4, Total Bilirubin 1.5 H, AST 25, ALT 20, Alkaline Phosphatase 119, Total Protein 7.8, Albumin 4.5, Joanne bulin 3.3 H, Albumin/Globulin Ratio 1.4 01/14/24 02:20: Urine Color Yellow, Urine Appearance Clear, Urine pH 6.0, Ur Specific [place] 1.025, Urine Protein 3+, Urine Glucose (UA) Negative, Urine Ketones Negative, Urine Blood 1+, Urine Nitrate Negative, Urine Bilirubin Negative, Urine Urobilinogen 2.0, Ur Leukocyte Esterase 1+ A, Urine RBC 5-10, Urine WBC 5-10, Ur Squamous Epith Cells Occasional, Urine Bacteria 1+ Temp Pulse Resp BP Pulse Ox 97.5 F L 72 20 132/74 92 L 12/13/22 04:00 12/13/22 04:00 12/13/22 04:00 12/13/22 04:00 12/13/22 04:00 Laboratory Results - last 24 hr 12/12/22 21:16: WBC 26.9 H*, RBC 4.24 L, Hgb 13.5 L, Hct 40.3 L, MCV 95.0 H, MCH 31.8 H, MCHC 33.4, RDW 13.0, Plt Count 174, MPV 9.3, Neut % (Auto) 85.9 H, Lymph % (Auto) 7.6 L, Gulf % (Auto) 6.4, Eos % (Auto) 0.0 L, Baso % (Auto) 0.1, Neut # (Auto) 23.1 H, Lymph # (Auto) 2.0, Gulf # (Auto) 1.7 H, Eos # (Auto) 0.0, Baso # (Auto) 0.0, Total Counted 100, Neutrophils % (Manual) 87 H, Lymphocytes % (Manual) 11, Monocytes % (Manual) 2, Platelet Estimate Normal, RBC Morphology Normal 12/12/22 21:16: PT 10.7, INR 0.99, APTT 27.3 12/12/22 21:16: Lactate 1.1 12/12/22 21:16: ESR 74 H 12/12/22 21:16: Sodium 139, Potassium 3.3 L, Chloride 102, Carbon Dioxide 24, Anion Gap 16.3 H, BUN 20, Creatinine 1.50 H, Estimated Creat Clear 59, Estimated GFR 46 L, Est GFR ( Amer) 55 L, Glucose 174 H, Calcium 8.8, Total Bilirubin 1.8 H, AST 28, ALT 23, Alkaline Phosphatase 121, C-Reactive Protein 131.2 H, Total Protein 7.8, Albumin 4.3, Globulin 3.5 H, Albumin/Globulin Ratio 1.2 12/12/22 21:16: Troponin I 0.03, Procalcitonin 0.497 12/12/22 21:31: SARS-CoV-2 (PCR) Not detected, Influenza A Untype (PCR) Not detected, Influenza Type B (PCR) Not detected 12/12/22 22:41: Urine Color Yellow, Urine Appearance Sl cloudy, Urine pH 6.0, Ur Specific [place] 1.025, Urine Protein 3+, Urine Glucose (UA) Negative, Urine Ketones Negative, Urine Blood 2+, Urine Nitrate Positive, Urine Bilirubin Negative, Urine Urobilinogen 2.0, Ur Leukocyte Esterase 1+ A, Urine RBC 10-20, Urine WBC 10-20, Ur Squamous Epith Cells 3-5, Urine Bacteria 4+ 12/13/22 00:20: Troponin I 0.04 H 12/13/22 03:35: Troponin I 0.03 12/13/22 05:55: WBC 21.2 H*, RBC 4.04 L, Hgb 12.7 L, Hct 39.5 L, MCV 97.6 H, MCH 31.4 H, MCHC 32.1, RDW 13.1, Plt Count 131 L, MPV 9.6, Neut % (Auto) 87.8 H, Lymph % (Auto) 6.5 L, Gulf % (Auto) 5.6, Eos % (Auto) 0.1, Baso % (Auto) 0.2, Neut # (Auto) 18.6 H, Lymph # (Auto) 1.4, Gulf # (Auto) 1.2 H, Eos # (Auto) 0.0, Baso # (Auto) 0.0, Total Counted 100, Neutrophils % (Manual) 85 H, Lymphocytes % (Manual) 13, Monocytes % (Manual) 2, Platelet Estimate Slight decrease, RBC Morphology Normal 12/13/22 05:55: Sodium 143, Potassium 3.9, Chloride 109 H, Carbon Dioxide 24, Anion Gap 13.9, BUN 16, Creatinine 1.20, Estimated Creat Clear 74, Estimated GFR 59, Est GFR ( Amer) 72 D, Glucose 119 H D, Calcium 8.3 L 12/13/22 05:55: Hemoglobin A1c 6.0 12/13/22 05:56: POC Glucose 118 H I & O for Last 24 hours: Intake & Output 01/11/24 01/12/24 01/13/24 01/14/24 23:59 23:59 23:59 23:59 Weight 99.79 kg Intake & Output 12/10/22 12/11/22 12/12/22 12/13/22 11:59 11:59 11:59 11:59 Intake Total 3300 / 3300 Output Total 1500 / 1500 Balance 1800 / 1800 Weight 216 lb 5 oz Microbiology Reports for the Last 24 Hours: Microbiology 12/12/22 22:41 Urine,Clean Catch Urine Culture - Preliminary Constitutional Constitutional: mild distress, obese and cooperative Comments: Appears tired but is alert and pleasant. *Routine HEENT Exam Head: Present normocephalic and atraumatic Eye: Present EOMI and PERRL ENT: Present mucous membranes moist *Routine Neck Exam Neck: Present supple; Absent lymphadenopathy *Routine Respiratory Exam Respiratory: Present CTA bilaterally *Routine Cardiovascular Exam Cardiovascular: Present RRR *Routine Abdominal Exam Abdominal: Present soft and normoactive bowel sounds; Absent tenderness *Routine Rectal Exam Rectal:: deferred *Routine Genitalia Exam Genitalia:: deferred *Routine Extremities Exam Extremities: Absent cyanosis, clubbing or edema *Routine Skin Exam Skin: Present warm; Absent rash *Routine Neurological Exam Neurological: Present alert and oriented X3 H&P: Result Imaging and Cardiology EKG: Status: image reviewed by me, Preliminary report and final report Chest x-ray: Status: image reviewed by me, Preliminary report and final report CT scan - abdomen: Status: image reviewed by me, Preliminary report and final report Assessment and Plan *Assessment and plan (1) Sepsis: Status: Acute Qualifiers: Acute renal failure type: unspecified Sepsis acute organ dysfunction status: with acute organ dysfunction Sepsis type: sepsis due to unspecified organism Severe sepsis acute organ dysfunction type: acute renal failure Severe sepsis shock status: without septic shock Qualified Code(s): A41.9 - Sepsis, unspecified organism; R65.20 - Severe sepsis without septic shock; N17.9 - Acute kidney failure, unspecified Category: Medical Code(s): A41.9 - Sepsis, unspecified organism (2) UTI (urinary tract infection): Status: Acute Qualifiers: Hematuria presence: without hematuria Urinary tract infection type: site unspecified Qualified Code(s): N39.0 - Urinary tract infection, site not specified Category: Medical Code(s): N39.0 - Urinary tract infection, site not specified (3) JHONATAN (acute kidney injury): Status: Resolved Category: Medical Code(s): N17.9 - Acute kidney failure, unspecified (4) Diabetes mellitus: Status: Acute Qualifiers: Diabetes mellitus complication detail: without coma Diabetes mellitus complication status: with hyperosmolarity Diabetes mellitus [facility] insulin use: without [facility] use Diabetes mellitus type: type 2 Qualified Code(s): E11.00 - Type 2 diabetes mellitus with hyperosmolarity without nonketotic hyperglycemic-hyperosmolar coma ([facility]) Category: Medical Code(s): E11.9 - Type 2 diabetes mellitus without complications (5) History of colon cancer: Status: Acute Category: Medical Code(s): Z85.038 - Personal history of other malignant neoplasm of large intestine (6) Hypertension: Status: Acute Qualifiers: Hypertension type: unspecified Qualified Code(s): I10 - Essential (primary) hypertension Category: Medical Code(s): I10 - Essential (primary) hypertension (7) BPH (benign prostatic hyperplasia): Status: Acute Qualifiers: Lower urinary tract symptom detail: urinary obstruction Lower urinary tract symptom presence: symptoms present Qualified Code(s): N40.1 - Benign prostatic hyperplasia with lower urinary tract symptoms; N13.8 - Other obstructive and reflux uropathy Category: Medical Code(s): N40.0 - Benign prostatic hyperplasia without lower urinary tract symptoms Plan 73-year-old white male with PMHx of hypertension, type 2 diabetes that has been well controlled, BPH and remote colon cancer who presented to the emergency department with 3 days of fever, nausea, vomiting, malaise and fatigue. presented normotensive, febrile of 101F. leukocytosis. Full sepsis bolus was given. Urine culture pending. Started on zoxyn and vancomycin to cover more broadly. CT abdomen pelvis personally interpreted demonstrates no perinephric stranding. Agree with admission for sepsis with source UTI, possibly bladder outlet obstruction. Plans as follow: Sepsis without shock secondary to UTI Acute kidney injury BPH IV fluid resuscitation Accurate I's and O's vanco and zoxyn given in ED Baseline creatinine 1.0 IV ceftriaxone daily Alpha-mac therapy Urine culture pending PSA level pending Trending trending electrolytes, creatinine, labs and inflammatory markers Antiemetic therapy Pain control Avoid NSAIDs Outpatient follow-up with urology Diabetes Routine blood sugar monitoring Hemoglobin A1c pending Sliding scale for diabetes. Carbohydrate controlled diet Hypertension Routine blood pressure monitoring Dihydropyridine calcium channel mac therapy -Hx colon cancer CT scan does show possible reactive lymph node. patient had history of colon cancer. Will follow this in the outpatient setting. on coming colonoscopy this Mon. VTE prophylaxis: Lovenox CODE STATUS: Full code POA: Yaritza- The length of stay for this patient will be 2 midnights or greater due to above diagnoses.
--- NOTE | 2024-01-14 03:26 | PC.NURSE ---
Nurse to nurse report to Raghu BLACK
[2024-01-14] MEDS: 0.9 % SODIUM CHLORIDE 1000ML 1,000 ML 100 ML IV ×2 (05:14→14:48)
[2024-01-14 05:46] LABS: POC Glucose,Bedside 132 (70-110)
[2024-01-14 07:49] LABS: Anion Gap 9.5 mEq/L (5-15); Blood Urea Nitrogen 18 mg/dl (9-20); Carbon Dioxide 24 mmol/L (22.0-30.0); Chloride 110 mmol/L (98-107); Creatinine Clearance Estimated 69 mL/min (50-200); Estimated Glomerular Filt Rate 54 ml/min (>60); Potassium 3.5 mmoL/L (3.5-5.1); Sodium 140 mmol/L (136-145)
[2024-01-14 07:50] LABS: Alanine Aminotransferase 17 U/L (12-78); Albumin Level 3.7 g/dl (3.5-5.0); Albumin/Globulin Ratio 1.4 (1.1-1.8); Alkaline Phosphatase 94 U/L (38-126); Aspartate Amino Transferase 23 U/L (17-59); Bilirubin,Total 1.5 mg/dl (0.2-1.3); Calcium 8.9 mg/dl (8.4-10.2); GFR (African American) 65 ML/MIN (>60); Globulin 2.7 g/dL (1.3-3.2); Glucose 115 mg/dl (74-100); Total Protein,Serum 6.4 g/dl (6.3-8.2)
[2024-01-14 08:03] LABS: Basophils % 0.3 % (0.1-2.0); Eosinophils % 0.1 % (0.1-12.0); Hematocrit 34.4 % (42.0-52.0); Hemoglobin 11.7 g/dL (14.1-18.0); Lymphocytes # 1.9 K/mm3 (0.7-4.5); Mean Corpuscular HGB Conc 33.8 g/dL (31.8-35.4); Mean Corpuscular Hemoglobin 33.8 pg (27.0-31.2); Mean Corpuscular Volume 99.8 fl (80-94); Mean Platelet Volume 9.9 fl (7.4-10.4); Monocytes # 0.9 K/mm3 (0.1-1.0); Monocytes % 5.3 % (1.7-9.3); Neutrophils % 83.3 % (37.0-80.0); Platelet Count 130 K/mm3 (142-424); Red Blood Count 3.45 M/mm3 (4.60-6.20); Red Cell Distribution Width 13.5 % (11.5-17.5); White Blood Count 16.9 K/mm3 (4.8-10.8)
--- NOTE | 2024-01-14 08:06 | HMH.PHAINT1 ---
Pharmacy Intervention Comments: MEDICATION RECONCILIATION COMPLETE USING EXTERNAL PHARMACY FILL HISTORY.
[2024-01-14] MEDS: PT OWN MED *AMLODIPINE 5 MG TAB 2 EACH PO (09:23)
[2024-01-14] MEDS: ENOXAPARIN 40MG/0.4ML SYRINGE 40 MG SQ (09:24)
--- NOTE | 2024-01-14 10:13 | PC.NURSE ---
pt c/o nausea and asked for an emesis bag. asked pt if he wanted a medication to relive the nausea, pt denied and stated ill ride it out.
[2024-01-14] MEDS: ONDANSETRON 4MG/2ML VIAL 4 MG IV (10:26)
[2024-01-14 11:12] LABS: POC Glucose,Bedside 143 (70-110)
[2024-01-14] MEDS: CEFTRIAXONE 1 GM 1 GM in 0.9 % SODIUM CHLORIDE 50 ML IV (14:47)
--- NOTE | 2024-01-14 18:13 | PC.NURSE ---
pt had a temp of 103.1 at 1732. notified MD. tylenol ordered. when walking into pt room pt was lying in bed. pt states he has leg pain and states tylenol relieves pain sometimes. placed a sheet over pt and turned the room temperature down. tylenol given per AUG. pt denied ice packs. pt is currently lying in bed, no further requests at this time.
--- NOTE | 2024-01-14 18:27 | PC.NURSE ---
assessed pt pain level and temperature. pt states leg pain has improved and temperature is now 99.4 orally
[2024-01-14 18:42] LABS: POC Glucose,Bedside 136 (70-110)
[2024-01-14 20:21] LABS: POC Glucose,Bedside 126 (70-110)
[2024-01-14] MEDS: FINASTERIDE 5MG TABLET 5 MG PO (20:31)
[2024-01-14] MEDS: PT OWN MED *TAMSULOSIN 0.4 MG CAP 1 EACH PO (20:32)
[2024-01-14] MEDS: PANTOPRAZOLE 40MG TABLET 40 MG PO (20:32)
[2024-01-14] MEDS: PT OWN MED *ATORVASTATIN 40 MG TAB 1 EACH PO (20:32)
--- OUTSIDE RECORDS SUMMARY | 2024-01-14 22:17 | XMS_ITS | Clinical Summary ---
Author Name Unknown Address [address] [place] [address] Phone Organization [facility] Address [address] [place] [address] Phone Care Team Providers Care Real Estate Coordinator Name Role Phone Zeina CRUZ, Jake Peoples [ ] Conditions or Problems Problem Name Problem Code Onset Date Status Entry Date Provider Comment Standard Description Annotate PSEUDOMONAS INFECTION 05976871 (SNOMED CT) Active 09/29 Jeannie Amor Bacterial infection caused by Pseudomonas STREP GROUP D ENTEROCOCCUS B95.4 (ICD-10-CM) Active 09/29 Jeannie Amor Other streptococcus as the cause of diseases classified elsewhere E COLI INFECTION 09453675 (SNOMED CT) Active 09/29 Jeannie Amor Infection caused by Escherichia coli LEUKOCYTOSIS 540401170 (SNOMED CT) Active 09/07 Jake Pastrana MD Leukocytosis ACUTE KIDNEY FAILURE W/LES RENAL CORTICAL NECRO N17.1 (ICD-10-CM) Active 09/07 Jake Pastrana MD Acute kidney failure with acute cortical necrosis NAUSEA 555555734 (SNOMED CT) Active 09/07 Jake Pastrana MD Nausea PERITONEAL ABSCESS 34961139 (SNOMED CT) Active 09/07 Linda Peña Abscess of peritoneum Medications Medication Instructions Start Date Stop Date Generic Name [facility] Provider ZOSYN 4.5 (4-0.5) GM INTRAVENOUS SOLUTION RECONSTITUTED 9 PIPERACILLIN SOD-TAZOBACTAM SO [id number] Leah Graves RN ZOSYN 4.5 (4-0.5) GM INTRAVENOUS SOLUTION RECONSTITUTED 9 PIPERACILLIN SOD-TAZOBACTAM SO [id number] Anetra D Almendarez FORTAZ (IV) 8 FORTAZ (IV) Anetra D Almendarez FORTAZ (IV) 8 FORTAZ (IV) Linda G FORTAZ (IV) 8 FORTAZ (IV) Linda G FORTAZ (IV) FORTAZ (IV) Linda G Medications Administered No information available. Allergies, Adverse Reactions, Alerts No information available. 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 Clinical Lists Update ESR 33 mm/h Erythrocyte sedimentation rate by Westergren method PLATELETS 211 10*3/mm3 Platelets [#/volume] in Blood by Automated count HCT 36 % Hematocrit [V olume Fraction] of Blood by Automated count HGB 11.4 g/dL Hemoglobin [Mass/volume] in Blood RBC 3.90 10*6/mm3 Erythrocytes [#/volume] in Blood by Automated count WBC 7.0 10*3/mm3 Leukocytes [ #/volume] in Blood by Automated count SGOT (AST) 18 U/L Aspartate aminotransferase [Enzymatic activity/volume] in Serum or Plasma SGPT (ALT) 13 U/L Alanine aminotransferase [Enzymatic activity/volume] in Serum or Plasma ALK PHOS 98 U/L Alkaline angela sphatase [Enzymatic activity/volume] in Blood Lab Report: Basic Metabolic Panel ANIONGAP 5 mmol/L 3-11 N anion gap, s pablo GFR EST 38 mL/min estimated hernando merular filtration rate CALCIUM 10.0 mg/dL 8.7-10.4 N Calcium [Mol es/volume] in Serum or Plasma CO2 19 mmol/L 20-31 L Carbon dioxid e, total [Moles/volume] in Venous blood CHLORIDE 116 mmol/L 98-107 H Chloride [Moles/volume] in Serum or Plasma POTASSIUM 4.8 mmol/L 3.4-5.4 N Potassium [Moles/volume] in Serum or Plasma SODIUM 141 mmol/L 136-145 N Sodium [Moles /volume] in Serum or Plasma CREATININE 1.9 mg/dL 0.6-1.3 H Creatinine [Mass/volume] in Serum or Plasma BUN 31 mg/dL 6-20 H Urea nitrogen [Mass/volume] in Serum or Plasma GLUCOSE SER 99 mg/dL 70-100 N Glucose [ Mass/volume] in Serum or Plasma Office Visit: room 7 MEDS REVIEW Done Documenta tion of current medications (procedure) Plan of Care Type Date Detail Pending order IV Fluids Pending order BMP Pending order Follow-up appoin tment in 12 days Pending order BMP Pending order IV Fluids Pending order Discontinue IV a ntibiotics Pending order Follow-up appoin tment in 1 week Pending order IV Fluids Pending order Follow-up appoin tment in 1 week Procedures Code Procedure Name Date Entry Date CPT-f12d Follow-up appointment in 12 days CPT-07083 BMP CPT-J7030 IV Fluids CPT-DC Discontinue IV antibiotics 2 CPT-f1w Follow-up appointment in 1 week 9 CPT-J7030 IV Fluids CPT-f1w Follow-up appointment in 1 week 8 Vital Signs Date Name Value Unit Description BMI (Body Mass Index) 28.51 kg/m2 Bod y Mass Index (Ratio) Body Temperature 98.6 [degF] temperat ure E&M BP Diastolic 84 mm[Hg] blood pressu re, diastolic BP Systolic 160 mm[Hg] blood pressur e, systolic Heart Rate 60 /min pulse rate Height 70 [in_us] height E&M Respiratory Rate 18 /min respirat ory rate E&M Weight Measured 198 [lb_av] weight E& M Immunizations No information available. Advance Directives No information available.
[2024-01-15] VITALS: BP 150/69; PULSE 77; RESP 16; TEMP 37; O2SAT 95
[2024-01-15] MEDS: 0.9 % SODIUM CHLORIDE 1000ML 1,000 ML 100 ML IV ×2 (02:46→14:22)
[2024-01-15 04:00] VITALS: BP 153/62; PULSE 74; RESP 16; TEMP 37; O2SAT 96; BMI 31.4
--- NOTE | 2024-01-15 05:19 | PC.NURSE ---
Pt is currently asleep and has slept the majority of the shift. He has remained afebrile throughout the night and has not complained of any pain. Family member has remained at pt bedside. No complaints at this time, call light within reach.
[2024-01-15 05:53] LABS: POC Glucose,Bedside 109 (70-110)
[2024-01-15 06:51] LABS: Basophils % 0.2 % (0.1-2.0); Chloride 112 mmol/L (98-107); Eosinophils % 0.1 % (0.1-12.0); Hemoglobin 10.8 g/dL (14.1-18.0); Lymphocytes # 1.4 K/mm3 (0.7-4.5); Lymphocytes % 7.8 % (10-50); Mean Corpuscular HGB Conc 33.7 g/dL (31.8-35.4); Mean Corpuscular Hemoglobin 33.5 pg (27.0-31.2); Mean Corpuscular Volume 99.3 fl (80-94); Mean Platelet Volume 9.9 fl (7.4-10.4); Monocytes # 1.2 K/mm3 (0.1-1.0); Monocytes % 6.2 % (1.7-9.3); Neutrophils # 15.8 K/mm3 (1.8-7.8); Neutrophils % 85.7 % (37.0-80.0); Platelet Count 124 K/mm3 (142-424); Red Blood Count 3.22 M/mm3 (4.60-6.20); Red Cell Distribution Width 13.6 % (11.5-17.5); Sodium 139 mmol/L (136-145); White Blood Count 18.4 K/mm3 (4.8-10.8)
[2024-01-15 06:52] LABS: Potassium 3.7 mmoL/L (3.5-5.1)
[2024-01-15 06:54] LABS: Blood Urea Nitrogen 18 mg/dl (9-20); Creatinine Clearance Estimated 56 mL/min (50-200); Estimated Glomerular Filt Rate 42 ml/min (>60); GFR (African American) 51 ML/MIN (>60)
[2024-01-15 06:55] LABS: Anion Gap 6.7 mEq/L (5-15); Calcium 8.3 mg/dl (8.4-10.2); Carbon Dioxide 24 mmol/L (22.0-30.0); Glucose 105 mg/dl (74-100)
[2024-01-15 06:59] LABS: MANUAL DIFFERENTIAL MANUAL DIFFERENTIAL (MANUAL DIFF)
[2024-01-15 07:15] LABS: Hemoglobin A1C 5.9 % (4.0-6.0)
[2024-01-15 07:55] VITALS: BP 139/58; PULSE 74; RESP 19; TEMP 36.6; O2SAT 95
[2024-01-15 08:00] LABS: Procalcitonin 0.515 ng/mL (0.0-2.0)
[2024-01-15] MEDS: PT OWN MED *AMLODIPINE 5 MG TAB 2 EACH PO (08:36)
[2024-01-15] MEDS: HEPARIN SODIUM 5,000 UNIT/ML VIAL 5000 UNIT SQ ×2 (08:36→20:31)
[2024-01-15 10:53] LABS: POC Glucose,Bedside 98 (70-110)
[2024-01-15 11:15] LABS: Lymphocytes % 12 % (10-50); Monocytes % 4 % (2-9); Neutrophils % 75 % (42-76); Total Cells Counted 100
[2024-01-15 11:19] LABS: Platelet Estimate Normal; RBC Morphology Normal
--- NOTE | 2024-01-15 12:28 | EXP.ACUTE.PN ---
Subjective *Date: 01/15/24 *Time: 13:02 Interval history: Pt states he feels better vs yesterday examination. States he feels less weak and more energetic. Denies fevers this a.m. Patient's family present during interview with Dr. Garcia today. Medical Exam Vital signs and Labs for Last 24 Hours: Vital Signs Temp Pulse Resp BP Pulse Ox O2 Del Method 01/15/24 10:50 Room Air 01/15/24 08:05 Room Air 01/15/24 08:00 Room Air 01/15/24 07:55 97.9 F 74 19 139/58 L 95 Room Air 01/15/24 06:55 Room Air 01/15/24 04:56 Room Air 01/15/24 04:00 98.6 F 74 16 153/62 H 96 Room Air 01/15/24 03:00 Room Air 01/15/24 00:56 Room Air 01/15/24 00:00 98.6 F 77 16 150/69 H 95 Room Air 01/14/24 23:00 Room Air 01/14/24 21:00 Room Air 01/14/24 20:00 Room Air 01/14/24 19:59 99.6 F 72 18 156/73 H 93 L Room Air 01/14/24 19:00 Room Air 01/14/24 19:00 Room Air 01/14/24 17:00 Room Air 01/14/24 16:00 103.1 F H 75 18 152/57 H 95 Room Air 01/14/24 15:00 Room Air 01/14/24 13:00 Room Air Intake and Output 01/14/24 01/15/24 01/15/24 23:59 07:59 15:59 Intake Total 1193 / 2873 1720 / 1720 Output Total 0 / 0 Balance 1193 / 2873 1720 / 1720 Intake: Intake, Oral Amount 0 / 480 520 / 520 Intake, Oral Supplement Amount 0 / 0 Intake, Total IV Amount 1193 / 2393 1200 / 1200 0.9 % Sodium Chloride 1000ML 1, 1143 / 2343 1200 / 1200 000 ml @ 100 mls/hr IV .Q10H [facility] Rx#:[id number] Ceftriaxone 1 gm 1 gm In 0.9 % 50 / 50 Sodium Chloride 50 ml @ 100 mls /hr IV Q24H [facility] Rx#:[id number] Output: Output, Urine Amount 0 / 0 Other: Number of Voids 0 Number of Unmeasured Voids 1 Weight 99.5 kg Patient Weight 01/15/24 23:59 Weight 99.5 kg Laboratory Results - last 24 hr 01/14/24 02:20: Urine Color Yellow, Urine Appearance Clear, Urine pH 6.0, Ur Specific [place] 1.025, Urine Protein 3+, Urine Glucose (UA) Negative, Urine Ketones Negative, Urine Blood 1+, Urine Nitrate Negative, Urine Bilirubin Negative, Urine Urobilinogen 2.0, Ur Leukocyte Esterase 1+ A, Urine RBC 5-10, Urine WBC 5-10, Ur Squamous Epith Cells Occasional, Urine Bacteria 1+ 01/14/24 17:05: POC Glucose 136 H 01/14/24 20:05: POC Glucose 126 H 01/15/24 05:42: POC Glucose 109 01/15/24 06:14: WBC 18.4 H, RBC 3.22 L, Hgb 10.8 L, Hct 32.0 L, MCV 99.3 H, MCH 33.5 H, MCHC 33.7, RDW 13.6, Plt Count 124 L, MPV 9.9, Neut % (Auto) 85.7 H, Lymph % (Auto) 7.8 L, [place] % (Auto) 6.2, Eos % (Auto) 0.1, Baso % (Auto) 0.2, Neut # (Auto) 15.8 H, Lymph # (Auto) 1.4, [place] # (Auto) 1.2 H, Eos # (Auto) 0.0, Baso # (Auto) 0.0, Total Counted 100, Neutrophils % (Manual) 75, Band Neutrophils % 9.0 H, Lymphocytes % (Manual) 12, Monocytes % (Manual) 4, Platelet Estimate Normal, RBC Morphology Normal, Sodium 139, Potassium 3.7, Chloride 112 H, Carbon Dioxide 24, Anion Gap 6.7, BUN 18, Creatinine 1.60 H D, Estimated Creat Clear 56, Estimated GFR 42 L, Est GFR ( Amer) 51 L D, Glucose 105 H, Hemoglobin A1c 5.9, Calcium 8.3 L, PSA Screen 18.0 H, Procalcitonin 0.515 01/15/24 10:43: POC Glucose 98 I & O for Labs for Last 24 Hours: Intake & Output 01/12/24 01/13/24 01/14/24 01/15/24 23:59 23:59 23:59 23:59 Intake Total 1673 / 2873 1720 / 1720 Output Total 0 / 0 Balance 1673 / 2873 1720 / 1720 Weight 99.5 kg 99.5 kg Microbiology Reports for the Last 24 Hours: Microbiology 01/14/24 02:20 Urine,Clean Catch Urine Culture - Preliminary Gram Negative Rods 01/14/24 02:05 Blood Blood Culture - Preliminary NO GROWTH AFTER 24 HOURS 01/14/24 02:22 Blood Blood Culture - Preliminary Head: Present normocephalic and normal inspection Neck: Present normal inspection and full ROM Respiratory: Present diminished air movement Cardiac: Present Reg Rate and Rhythm and Regular Rate GI: Present soft and normal bowel sounds (male): Present deferred Extremities: Present normal inspection Skin: Present intact and warm Assessment and Plan *Assessment and plan (1) BPH (benign prostatic hyperplasia): Status: Acute Qualifiers: Lower urinary tract symptom presence: symptoms present Lower urinary tract symptom detail: urinary obstruction Qualified Code(s): N40.1 - Benign prostatic hyperplasia with lower urinary tract symptoms; N13.8 - Other obstructive and reflux uropathy Category: Medical Code(s): N40.0 - Benign prostatic hyperplasia without lower urinary tract symptoms (2) Hypertension: Status: Acute Qualifiers: Hypertension type: unspecified Qualified Code(s): I10 - Essential (primary) hypertension Category: Medical Code(s): I10 - Essential (primary) hypertension (3) Severe sepsis with acute organ dysfunction: Status: Acute Category: Medical Code(s): A41.9 - Sepsis, unspecified organism; R65.20 - Severe sepsis without septic shock (4) Diabetes mellitus: Status: Acute Qualifiers: Diabetes mellitus type: type 2 Diabetes mellitus mcc insulin use: without termite treater use Diabetes mellitus complication status: with hyperosmolarity Diabetes mellitus complication detail: without coma Qualified Code(s): E11.00 - Type 2 diabetes mellitus with hyperosmolarity without nonketotic hyperglycemic-hyperosmolar coma (NKHHC) Category: Medical Code(s): E11.9 - Type 2 diabetes mellitus without complications (5) UTI (urinary tract infection): Status: Acute Qualifiers: Urinary tract infection type: site unspecified Hematuria presence: without hematuria Qualified Code(s): N39.0 - Urinary tract infection, site not specified Category: Medical Code(s): N39.0 - Urinary tract infection, site not specified (6) History of colon cancer: Status: Acute Category: Medical Code(s): Z85.038 - Personal history of other malignant neoplasm of large intestine Plan 73-year-old white male with PMHx of hypertension, type 2 diabetes that has been well controlled, BPH and remote colon cancer who presented to the emergency department with 3 days of fever, nausea, vomiting, malaise and fatigue. presented normotensive, febrile of 101F. leukocytosis. Full sepsis bolus was given. Urine culture pending. Started on zoxyn and vancomycin to cover more broadly. CT abdomen pelvis personally interpreted demonstrates no perinephric stranding. Agree with admission for sepsis with source UTI, possibly bladder outlet obstruction. Plans as follow: Sepsis without shock secondary to UTI -Appears to be improving from sepsis perspective. Will continue to IV cefepime. Blood culture done on admission positive for gram-positive cocci. Will continue vancomycin for now. Check respiratory MRSA panel. She is urine culture pending. Continue antiemetics and pain control meds. Acute kidney injury -Continue cautious fluid IV hydration. Follow I's and O's closely. Will also watch patient for signs of obstructive JHONATAN. Patient's baseline creatinine appears around 1.0. Avoid use of NSAIDs and nephrotoxic drugs during hospitalization. BPH Outpatient follow-up with urology Diabetes Routine blood sugar monitoring Hemoglobin A1c pending Sliding scale for diabetes. Carbohydrate controlled diet Hypertension Routine blood pressure monitoring Dihydropyridine calcium channel mac therapy -Hx colon cancer CT scan does show possible reactive lymph node. patient had history of colon cancer. Will follow this in the outpatient setting. on coming colonoscopy this Mon. VTE prophylaxis: Lovenox CODE STATUS: Full code POA: Yaritza- Disposition ? Patient appears to be improving from sepsis perspective. Will continue broad-spectrum antibiotics, follow culture results. Repeat blood cultures today since 1 blood culture from admission grew out gram-positive cocci. Will also follow inflammatory markers. Hopefully patient will be appropriate for hospital disposition within next 48 to 72 hours if patient continues to resolve from sepsis.
--- NOTE | 2024-01-15 12:42 | EXP.PHA.CONS ---
Pharmacy Consult Date: 01/15/24 Time: 12:42 Referring provider: DR ZAPATA Reason for Consult:: VANCOMYCIN DOSING CONSULT Allergies Allergy/AdvReac Type Severity Reaction Status Date / Time No Known Drug Allergies Allergy Unknown Verified 03/03/22 10:45 [NKDA] Home Medications Medication Instructions Recorded Confirmed Type amlodipine 5 mg tablet 10 mg PO DAILY 03/03/22 01/14/24 History atorvastatin 40 mg tablet 40 mg PO HS 03/03/22 01/14/24 History tamsulosin 0.4 mg capsule 0.4 mg PO HS #30 caps 12/15/22 01/14/24 Rx New Prescriptions to Start Prescriptions: Height: 1.78 m Weight: 99.5 kg Laboratory Results:: Laboratory Results - last 24 hr 01/14/24 02:20: Urine Color Yellow, Urine Appearance Clear, Urine pH 6.0, Ur Specific [place] 1.025, Urine Protein 3+, Urine Glucose (UA) Negative, Urine Ketones Negative, Urine Blood 1+, Urine Nitrate Negative, Urine Bilirubin Negative, Urine Urobilinogen 2.0, Ur Leukocyte Esterase 1+ A, Urine RBC 5-10, Urine WBC 5-10, Ur Squamous Epith Cells Occasional, Urine Bacteria 1+ 01/14/24 17:05: POC Glucose 136 H 01/14/24 20:05: POC Glucose 126 H 01/15/24 05:42: POC Glucose 109 01/15/24 06:14: WBC 18.4 H, RBC 3.22 L, Hgb 10.8 L, Hct 32.0 L, MCV 99.3 H, MCH 33.5 H, MCHC 33.7, RDW 13.6, Plt Count 124 L, MPV 9.9, Neut % (Auto) 85.7 H, Lymph % (Auto) 7.8 L, [place] % (Auto) 6.2, Eos % (Auto) 0.1, Baso % (Auto) 0.2, Neut # (Auto) 15.8 H, Lymph # (Auto) 1.4, [place] # (Auto) 1.2 H, Eos # (Auto) 0.0, Baso # (Auto) 0.0, Total Counted 100, Neutrophils % (Manual) 75, Band Neutrophils % 9.0 H, Lymphocytes % (Manual) 12, Monocytes % (Manual) 4, Platelet Estimate Normal, RBC Morphology Normal, Sodium 139, Potassium 3.7, Chloride 112 H, Carbon Dioxide 24, Anion Gap 6.7, BUN 18, Creatinine 1.60 H D, Estimated Creat Clear 56, Estimated GFR 42 L, Est GFR ( Amer) 51 L D, Glucose 105 H, Hemoglobin A1c 5.9, Calcium 8.3 L, PSA Screen 18.0 H, Procalcitonin 0.515 01/15/24 10:43: POC Glucose 98 Medical History: Medical History (Updated 01/14/24 @ 06:39 by Talib Rizzo APRN) Chronic GERD Diabetes mellitus BPH (benign prostatic hyperplasia) Acid reflux Colon cancer Hyperlipidemia Hypertension Assessment and Plan Assessment and plan all Dx Assessment and Plan for all problems:: Pharmacokinetic dosing service Objective: Age: 73 yo Serum creatinine: 1.6 mg/dL Height: 70.1 Inches Weight (kg): 99.5 Diagnosis: SEPSIS Assessment: IBW (kg): 73.23 Dosing wt(kg): 99.5 Estimated Creatinine clearance (ml/min): 41.3 CRCL method: Cockcroft and Gault using ibw(default). Drug selected: Vancomycin Vd (liters): 69.6 (factor used: 0.7 L/kg) Mike (hr-1): 0.039 Half life (hrs): 17.77 CLvanco=?? 2.714 L/hr Recommended dose: 1500 mg Interval: 24 hrs Infusion time (hrs): 2.0 Predicted peak (mcg/mL): 34.1 Predicted trough (mcg/mL): 14.46 Total body weight is being used for vancomycin dosing. Recommendations: Give Vancomycin 1500 mg q 24 hrs with an expected Cpeak of 34.1 mcg/ml and an expected Ctrough of 14.46 mcg/ml AUC 0-24 /LIBBY Data: LIBBY 0.5 mcg/mL:?? AUC/LIBBY:? 1105.4 LIBBY 1.0 mcg/mL:?? AUC/LIBBY:? 552.7 --------- LIBBY 1.5 mcg/mL:?? AUC/LIBBY:? 368.5 LIBBY 2.0 mcg/mL:?? AUC/LIBBY:? 276.3 Thank you for the consult
[2024-01-15] MEDS: CEFEPIME HCL 2 GM in 0.9 % SODIUM CHLORIDE 100 ML IV (13:24)
[2024-01-15] MEDS: VANCOMYCIN/WATER FOR INJ (PEG) 1.5 GM/300 ML PIGGYBACK IV (14:22)
[2024-01-15 16:00] VITALS: BP 160/66; PULSE 74; RESP 18; TEMP 37.4; O2SAT 99
[2024-01-15 16:29] LABS: POC Glucose,Bedside 145 (70-110)
--- NOTE | 2024-01-15 18:19 | PC.NURSE ---
pt has remained on room air this shift. pt has had no complaints this shift. pt has been resting in chair most of shift. at bedside. no new orders at this time. 2nd blood culture pending d/t 1st set showing growth. hospitalist wanted to verify that the blood culture from 1st set was accurate. call light within reach.
[2024-01-15 20:00] VITALS: O2SAT 93
[2024-01-15 20:10] VITALS: BP 151/82; PULSE 76; RESP 16; TEMP 37.8; O2SAT 93
[2024-01-15 20:31] LABS: POC Glucose,Bedside 129 (70-110)
[2024-01-15] MEDS: PT OWN MED *ATORVASTATIN 40 MG TAB 1 EACH PO (20:31)
[2024-01-15] MEDS: FINASTERIDE 5MG TABLET 5 MG PO (20:31)
[2024-01-15] MEDS: ACETAMINOPHEN 500MG TAB 1000 MG PO (20:31)
[2024-01-15] MEDS: PANTOPRAZOLE 40MG TABLET 40 MG PO (20:31)
[2024-01-15] MEDS: PT OWN MED *TAMSULOSIN 0.4 MG CAP 1 EACH PO (20:32)
[2024-01-16] VITALS: BP 162/71; PULSE 68; RESP 16; TEMP 36.7; O2SAT 94
[2024-01-16] MEDS: CEFEPIME HCL 2 GM in 0.9 % SODIUM CHLORIDE 100 ML IV (01:52)
[2024-01-16 04:00] VITALS: BP 132/58; PULSE 67; RESP 16; TEMP 36.6; O2SAT 95; BMI 31.4
[2024-01-16] MEDS: 0.9 % SODIUM CHLORIDE 1000ML 1,000 ML 100 ML IV (04:09)
[2024-01-16 06:21] LABS: POC Glucose,Bedside 97 (70-110)
[2024-01-16 06:37] LABS: Basophils % 0.4 % (0.1-2.0); Eosinophils # 0.1 K/mm3 (0.0-0.4); Eosinophils % 0.6 % (0.1-12.0); Hematocrit 33.6 % (42.0-52.0); Hemoglobin 11.2 g/dL (14.1-18.0); Lymphocytes # 1.3 K/mm3 (0.7-4.5); Mean Corpuscular HGB Conc 33.2 g/dL (31.8-35.4); Mean Corpuscular Hemoglobin 33.6 pg (27.0-31.2); Mean Corpuscular Volume 101.1 fl (80-94); Mean Platelet Volume 10.5 fl (7.4-10.4); Monocytes # 0.6 K/mm3 (0.1-1.0); Neutrophils # 8.7 K/mm3 (1.8-7.8); Platelet Count 129 K/mm3 (142-424); Red Blood Count 3.33 M/mm3 (4.60-6.20); Red Cell Distribution Width 13.5 % (11.5-17.5); White Blood Count 10.7 K/mm3 (4.8-10.8)
[2024-01-16 06:49] LABS: Anion Gap 8.5 mEq/L (5-15); Blood Urea Nitrogen 17 mg/dl (9-20); Calcium 8.6 mg/dl (8.4-10.2); Carbon Dioxide 24 mmol/L (22.0-30.0); Chloride 112 mmol/L (98-107); Creatinine Clearance Estimated 75 mL/min (50-200); Estimated Glomerular Filt Rate 59 ml/min (>60); GFR (African American) 71 ML/MIN (>60); Glucose 103 mg/dl (74-100); Magnesium 1.8 mg/dl (1.6-2.3); Potassium 3.5 mmoL/L (3.5-5.1); Sodium 141 mmol/L (136-145)
[2024-01-16 08:00] VITALS: BP 160/66; PULSE 68; RESP 18; TEMP 36.7; O2SAT 95
[2024-01-16] MEDS: PT OWN MED *AMLODIPINE 5 MG TAB 2 EACH PO (08:17)
[2024-01-16] MEDS: HEPARIN SODIUM 5,000 UNIT/ML VIAL 5000 UNIT SQ (08:17)
--- NOTE | 2024-01-16 10:36 | P.DS_ITS ---
General Admission date:: 01/14/24 Discharge date: 01/16/24 HPI HPI HPI: This is a 73-year-old white male with PMHx of hypertension, type 2 diabetes that has been well controlled, BPH and remote colon cancer who presented to the emergency department with 3 days of fever, nausea, vomiting, malaise and fatigue. Patient reports he is frequently having the urge to urinate, has burning with urination, and only a small amount of urine comes out. In the ER was found to meet criteria for severe sepsis with elevated white count, fever, source of infection is urine. Given appropriate fluid boluses. Admitted for fur ther treatment and management Hospital Course Hospital Course Hospital Course: 73-year-old white male with PMHx of hypertension, type 2 diabetes that has been well controlled, BPH and remote colon cancer who presented to the emergency department with 3 days of fever, nausea, vomiting, malaise and fatigue. presented normotensive, febrile of 101F. leukocytosis. Full sepsis bolus was given. Urine culture pending. Started on zoxyn and vancomycin to cover more broadly. CT abdomen pelvis personally interpreted demonstrates no perinephric stranding. Agree with admission for sepsis with source UTI, possibly bladder outlet obstruction. Showed improvement. Antibiotics were de-escalated to cefepime. Culture returned positive and sensitive to oral therapies. Transition to oral treatment to complete course at discharge. Stable to discharge home. Condition overall improved. Problems addressed as follows: Sepsis without shock secondary to UTI -Presented with sepsis criteria. Some improvement with initiation of antibiotics. Treated with cefepime during admission. Urine growing E. coli sensitive to ciprofloxacin. Transitioned to ciprofloxacin 500 mg twice daily to complete 7 days total of antibiotics. Had single blood culture positive for gram-positive cocci. Likely contaminant. Repeat blood cultures obtained that remain negative. Stable to discharge home to complete oral antibiotics. Acute kidney injury -Creatinine peaked at 1.6, improved to 1.2 by discharge. This is patient's baseline. Did well the IV fluid rehydration. Avoided use of NSAIDs and nephrotoxic drugs during hospitalization. BPH Continue finasteride and tamsulosin nightly. Would benefit from outpatient urologic eval. Defer referral to PCP as patient is voiding independently during admission. Diabetes A1c 5.9. Monitored fingersticks during admission. Continue dietary control. Not diagnostic for diabetes at this time. Hypertension Routine blood pressure monitoring. Remained at goal during admission. Continue amlodipine 10 mg daily. -Hx colon cancer CT scan does show possible reactive lymph node. patient had history of colon cancer. Needs further follow-up this in the outpatient setting. Up coming colonoscopy this Mon. Exam Data for Last 24 hours Vital signs and Labs for Last 24 Hours: Temp Pulse Resp BP Pulse Ox O2 Del Method 98.0 F 68 18 160/66 H 95 Room Air 01/16/24 08:00 01/16/24 08:00 01/16/24 08:00 01/16/24 08:00 01/16/24 08:00 01/16/24 08:38 Laboratory Results - last 24 hr 01/15/24 06:14: Total Counted 100, Neutrophils % (Manual) 75, Band Neutrophils % 9.0 H, Lymphocytes % (Manual) 12, Monocytes % (Manual) 4, Platelet Estimate Normal, RBC Morphology Normal 01/15/24 10:43: POC Glucose 98 01/15/24 16:22: POC Glucose 145 H 01/15/24 20:24: POC Glucose 129 H 01/16/24 06:12: POC Glucose 97 01/16/24 06:20: WBC 10.7 D, RBC 3.33 L, Hgb 11.2 L, Hct 33.6 L, MCV 101.1 H, MCH 33.6 H, MCHC 33.2, RDW 13.5, Plt Count 129 L, MPV 10.5 H, Neut % (Auto) 81.0 H, Lymph % (Auto) 12.0, [place] % (Auto) 6.0, Eos % (Auto) 0.6, Baso % (Auto) 0.4, Neut # (Auto) 8.7 H, Lymph # (Auto) 1.3, [place] # (Auto) 0.6, Eos # (Auto) 0.1, Baso # (Auto) 0.0, Sodium 141, Potassium 3.5, Chloride 112 H, Carbon Dioxide 24, Anion Gap 8.5, BUN 17, Creatinine 1.20 D, Estimated Creat Clear 75, Estimated GFR 59, Est GFR ( Amer) 71 D, Glucose 103 H, Calcium 8.6, Magnesium 1.8 I & O for Last 24 hours: Intake & Output 01/13/24 01/14/24 01/15/24 01/16/24 23:59 23:59 23:59 23:59 Intake Total 1673 / 2873 2620 / 2620 180 / 180 Output Total 0 / 0 1050 / 1050 Balance 1673 / 2873 1570 / 1570 180 / 180 Weight 99.5 kg 99.5 kg 99.5 kg Microbiology Reports for the Last 24 Hours: Microbiology 01/14/24 02:20 Urine,Clean Catch Urine Culture - Final Escherichia coli 01/14/24 02:05 Blood Blood Culture - Preliminary NO GROWTH AFTER 48 HOURS Constitutional Constitutional: no acute distress, obese and cooperative *Routine HEENT Exam Head: Present normocephalic Eye: Present EOMI and PERRL ENT: Present mucous membranes moist *Routine Neck Exam Neck: Present supple; Absent lymphadenopathy *Routine Respiratory Exam Respiratory: Present CTA bilaterally; Absent rhonchi, wheezes or crackles *Routine Cardiovascular Exam Cardiovascular: Present RRR *Routine Abdominal Exam Abdominal: Present soft and normoactive bowel sounds; Absent tenderness *Routine Rectal Exam Patient deferred: visual exam *Routine Exam Patient deferred: penile exam *Routine Extremities Exam Extremities: Absent cyanosis, clubbing or edema *Routine Skin Exam Skin: Present intact and warm; Absent rash *Routine Neurological Exam Neurological: Present alert, oriented X3 and moving all extremities; Absent altered mental status Results Data Completed and Pending Labs on day of discharge: Labs from last 24 hours 01/16/24 01/16/24 01/15/24 06:20 06:12 20:24 WBC 10.7 D RBC 3.33 L Hgb 11.2 L Hct 33.6 L MCV 101.1 H MCH 33.6 H MCHC 33.2 RDW 13.5 Plt Count 129 L MPV 10.5 H Neut % (Auto) 81.0 H Lymph % (Auto) 12.0 [place] % (Auto) 6.0 Eos % (Auto) 0.6 Baso % (Auto) 0.4 Neut # (Auto) 8.7 H Lymph # (Auto) 1.3 [place] # (Auto) 0.6 Eos # (Auto) 0.1 Baso # (Auto) 0.0 Total Counted Neutrophils % (Manual) Band Neutrophils % Lymphocytes % (Manual) Monocytes % (Manual) Platelet Estimate RBC Morphology Sodium 141 Potassium 3.5 Chloride 112 H Carbon Dioxide 24 Anion Gap 8.5 BUN 17 Creatinine 1.20 D Estimated Creat Clear 75 Estimated GFR 59 Est GFR ( Amer) 71 D Glucose 103 H POC Glucose 97 129 H Calcium 8.6 Magnesium 1.8 01/15/24 01/15/24 01/15/24 16:22 10:43 06:14 WBC RBC Hgb Hct MCV MCH MCHC RDW Plt Count MPV Neut % (Auto) Lymph % (Auto) [place] % (Auto) Eos % (Auto) Baso % (Auto) Neut # (Auto) Lymph # (Auto) [place] # (Auto) Eos # (Auto) Baso # (Auto) Total Counted 100 Neutrophils % (Manual) 75 Band Neutrophils % 9.0 H Lymphocytes % (Manual) 12 Monocytes % (Manual) 4 Platelet Estimate Normal RBC Morphology Normal Sodium Potassium Chloride Carbon Dioxide Anion Gap BUN Creatinine Estimated Creat Clear Estimated GFR Est GFR ( Amer) Glucose POC Glucose 145 H 98 Calcium Magnesium Preliminary micro results at discharge 01/14/24 02:05 Blood Culture - Preliminary Blood NO GROWTH AFTER 48 HOURS 01/14/24 02:22 Blood Culture - Preliminary Blood DS: Diagnosis Discharge Diagnosis (1) BPH (benign prostatic hyperplasia): Status: Acute Code(s): N40.0 - Benign prostatic hyperplasia without lower urinary tract symptoms Qualifiers: Lower urinary tract symptom detail: urinary obstruction Lower urinary tract symptom presence: symptoms present Qualified Code(s): N40.1 - Benign prostatic hyperplasia with lower urinary tract symptoms; N13.8 - Other obstructive and reflux uropathy (2) Hypertension: Status: Acute Code(s): I10 - Essential (primary) hypertension Qualifiers: Hypertension type: unspecified Qualified Code(s): I10 - Essential (primary) hypertension (3) Severe sepsis with acute organ dysfunction: Status: Acute Code(s): A41.9 - Sepsis, unspecified organism; R65.20 - Severe sepsis without septic shock (4) Diabetes mellitus: Status: Acute Code(s): E11.9 - Type 2 diabetes mellitus without complications Qualifiers: Diabetes mellitus complication detail: without coma Diabetes mellitus complication status: with hyperosmolarity Diabetes mellitus predatory animal exterminator insulin use: without shelter use Diabetes mellitus type: type 2 Qualified Code(s): E11.00 - Type 2 diabetes mellitus with hyperosmolarity without nonketotic hyperglycemic-hyperosmolar coma (NKHHC) (5) UTI (urinary tract infection): Status: Acute Code(s): N39.0 - Urinary tract infection, site not specified Qualifiers: Hematuria presence: without hematuria Urinary tract infection type: site unspecified Qualified Code(s): N39.0 - Urinary tract infection, site not specified (6) History of colon cancer: Status: Acute Code(s): Z85.038 - Personal history of other malignant neoplasm of large intestine Meds Home Medications and Allergies Home Medications Medication Instructions Recorded Confirmed Type amlodipine 5 mg tablet 10 mg PO DAILY 03/03/22 01/14/24 History atorvastatin 40 mg tablet 40 mg PO HS 03/03/22 01/14/24 History tamsulosin 0.4 mg capsule 0.4 mg PO HS #30 caps 12/15/22 01/14/24 Rx ciprofloxacin HCl 500 mg tablet 500 mg PO BID 5 days #9 tabs 01/16/24 Rx finasteride 5 mg tablet 5 mg PO HS 30 days #30 tabs 01/16/24 Rx New Prescriptions to Start Prescriptions: ciprofloxacin Mehul BestasterMehul Otero Allergies Allergy/AdvReac Type Severity Reaction Status Date / Time No Known Drug Allergies Allergy Unknown Verified 03/03/22 10:45 [NKDA] Discharge Plan Disposition Patient Disposition: Home, Self-Care Condition: Fair Discharge Order Discharge Orders: Discharge Order (Routine); Ordered 01/16/24 Ordered By: Mehul Treviño Follow up Plan Follow up with: Alexis Jessica MD [Primary Care Provider] - 01/22/24 10:00 am Prescriptions/Medication Reconciliation: New finasteride 5 mg Tablet 5 mg PO HS 30 Days Qty: 30 0RF ciprofloxacin HCl 500 mg tablet 500 mg PO BID 5 Days Qty: 9 0RF Continued amlodipine 5 mg tablet 10 mg PO DAILY atorvastatin 40 mg tablet 40 mg PO HS Patient Comments: TAKE 1 TABLET 1 TIME EACH DAY tamsulosin 0.4 mg capsule 0.4 mg PO HS Qty: 30 0RF Problem Reconciliation Problems Reviewed?: Yes Patient Discharge Instructions ACTIVITY: Continue current activity DIET: continue same diet Patient Instructions: DI for Urinary Tract Infection (UTI), DI for Sepsis -- Adult Providers Primary Care Provider: Alexis Jessica Admit Provider: Bang Blanc Attending Provider: Bang Blanc
[2024-01-16 11:10] LABS: POC Glucose,Bedside 109 (70-110)
[2024-01-16 11:47] VITALS: BP 158/90; PULSE 69; RESP 20; TEMP 36.3; O2SAT 96
--- NOTE | 2024-01-18 14:27 | CARE MANAGER ---
Attempted to contact patient related to hospital discharge x2. No VM option. WAYNE Gomez
== END 2024-01-16 13:50 | disposition home or self-care (01) | DRG 872 ==
LOC: ER 03:13 → 2ND 03:21
PROVIDERS: Internal Medicine; Nurse Practitioner Family; Admitting Provider Family Medicine; Emergency Provider Emergency Medicine; PCP Internal Medicine Adolescent Medicine; Visit Provider Family Medicine
DX: A41.9 Sepsis, unspecified organism (principal); N39.0 Urinary tract infection, site not specified; N17.9 Acute kidney failure, unspecified; N13.8 Other obstructive and reflux uropathy; E11.9 Type 2 diabetes mellitus without complications; R65.20 Severe sepsis without septic shock; I10 Essential (primary) hypertension; N40.1 Benign prostatic hyperplasia with lower urinary tract symptoms; E78.5 Hyperlipidemia, unspecified; Z79.899 Other long term (current) drug therapy; Z85.038 Personal history of other malignant neoplasm of large intestine; B96.20 Unspecified Escherichia coli [E. coli] as the cause of diseases classified elsewhere
CPT/HCPCS: 36415; 71045; 74177; 80048; 80053; 81001; 82962; 83036; 83735; 84145; 85007; 85025; 85027; 87040; 87086; 87088; 87186; 99291; G0103; J0696; J1644; J1650; J2405; J2543; J3370; J7120; Q9967

== ENCOUNTER 2024-08-18 08:45 | Emergency (ER) | payer MEDICARE, OTHER, SELFPAY ==
[2024-08-18 08:55] VITALS: BP 159/71; PULSE 91; O2SAT 94
[2024-08-18 09:01] VITALS: BP 141/76; PULSE 92; O2SAT 92
[2024-08-18 09:05] VITALS: BP 159/71; PULSE 91; RESP 14; TEMP 37.1; O2SAT 96; BMI 31.5
--- NOTE | 2024-08-18 09:12 | XR_ITS ---
PROCEDURE INFORMATION: Exam: XR Chest Exam date and time: 08/18/2024 9:33 AM Age: 74 years old Clinical indication: Dyspnea TECHNIQUE: Imaging protocol: Radiologic exam of the chest. Views: 1 view. COMPARISON: CR XR CHEST PORTABLE 01/14/2024 2:21 AM FINDINGS: Lungs: There is poor ventilation of the lungs, with perihilar vascular crowding and a diffuse increase in pulmonary parenchymal density. No evidence of pneumonia or interstitial edema. Pleural spaces: Unremarkable. No pleural effusion. No pneumothorax. Heart/Mediastinum: Unremarkable. No cardiomegaly. Bones/joints: Unremarkable. IMPRESSION: No evidence of pneumonia or interstitial edema.
--- NOTE | 2024-08-18 09:14 | HMH.EDGENADL ---
Discharge Plan Disposition Patient Disposition: Home, Self-Care Prescriptions Prescriptions: New levofloxacin 750 mg tablet 750 mg PO DAILY 14 Days Qty: 14 0RF No Action amlodipine 5 mg tablet 10 mg PO DAILY atorvastatin 40 mg tablet 40 mg PO HS Patient Comments: TAKE 1 TABLET 1 TIME EACH DAY tamsulosin 0.4 mg capsule 0.4 mg PO HS Qty: 30 0RF finasteride 5 mg Tablet 5 mg PO HS 30 Days Qty: 30 0RF Referrals Follow up/Referrals: Atul Cerda MD [Staff Physician] - See instructions Alexis Jessica MD [Primary Care Provider] - See instructions Activity Restrictions/Add. Instructions Additional Instructions/Restrictions: As discussed you have a urinary tract infection that is the cause of your generalized weakness but no evidence of sepsis at the moment. Please return with worsening weakness elevated heart rate high fevers greater than 100.4 or other concerns. Otherwise please closely follow-up with our urologist Dr. Cerda. I prescribed 2 weeks of your antibiotic but you had mild prostate tenderness and this is very likely prostatitis which could require 4 to 6 weeks of antibiotic duration which needs to be done in conjunction with urology management. Clinical Impressions Clinical Impression: Generalized weakness, Acute UTI, Acute prostatitis Print Language Print Language: Yi Discharge ED Provider: Shelley Zarco General Adult HPI General Chief complaint: Weakness Stated complaint: weakness, uti Time Seen by Provider: 08/18/24 09:06 Mode of Arrival: Ambulatory Source of Information: Patient and Spouse Limitations: No Limitations Description of Symptoms (Recalled from ER Triage Doc. by RN): pt states he has been feeling unwell for 2d. He c/o urinary frequency but minimal output and weakness. pt also states he is having intermittant pelvic pain that is tight and 9/10. pt states the pelvic pain is worse when he feels the need to urinate. pt also states he has been belching frequently. History of Present Illness HPI narrative: Patient is a 74-year-old male presenting today with generalized weakness and what he believes to be urinary tract infection. For the last 2 days he has had urinary frequency every 30 minutes as well as dysuria. He is uncircumcised but states that he has not had any swelling or tenderness or difficulty with his foreskin no rashes or swelling or tenderness down that region. Denies any back pain or fevers. Denies any chest pain denies any shortness of breath. Typically is very active according to his family and states that he can barely walk he is so weak at the moment. Related Data Home Medications ?Medication ?Instructions ?Recorded ?Confirmed amlodipine 5 mg tablet 10 mg PO DAILY 03/03/22 08/18/24 atorvastatin 40 mg tablet 40 mg PO HS 03/03/22 08/18/24 Previous Rx's ?Medication ?Instructions ?Recorded tamsulosin 0.4 mg capsule 0.4 mg PO HS #30 caps 12/15/22 finasteride 5 mg tablet 5 mg PO HS 30 days #30 tabs 01/16/24 levofloxacin 750 mg tablet 750 mg PO DAILY 14 days #14 tabs 08/18/24 Allergies Allergy/AdvReac Type Severity Reaction Status Date / Time No Known Drug Allergies Allergy Unknown Other Verified 08/18/24 09:04 ([facility]) [facility] Disclaimer: The information contained in this section may have been updated after the patient was seen, as this information can be updated by other users. Medical History (Updated 08/18/24 @ 10:33 by Shelley Zarco MD) Chronic GERD Diabetes mellitus BPH (benign prostatic hyperplasia) Acid reflux Colon cancer Hyperlipidemia Hypertension Surgical History History of colon resection History of cholecystectomy Family History Father Coronary artery disease Mother Hypertension Social History Smoking Status: Never smoker second hand exposure: No alcohol intake: never substance use type: other current occupational status: retired Travel in the last 8 weeks: None household members: spouse and children housing: house marital status: caffeine: Yes Have you lived/traveled outside [place] in past 30 days?: No Contact w/someone who lives/traveled outside [place] past 30 days?: No Exposure to someone with infectious disease in past 14 days?: No Do you have a fever (greater than 100.4 F or 38 C)?: No Have you tested positive for COVID-19: No Exposed to someone with COVID-19 in past 14 days?: No Do you have a sore throat?: No Do you have a cough?: No Do you have any weakness?: No Do you have any diarrhea?: No Are you experiencing any unusual bleeding?: No Do you have any muscle aches/pain?: No Do you have any abdominal pain?: No Are you experiencing loss of taste or smell?: No Other Medical History Have you received the Flu Vaccine for this season: No Have you received the Pneumonia Vaccine: No ROS Obtained: Yes All systems reviewed & no additional complaints except as documented Physical Exam General General appearance: alert Respiratory Respiratory exam: Present normal lung sounds bilaterally; Absent respiratory distress Cardiovascular Cardiovascular exam: Present regular rate and normal rhythm Abdominal Exam Abdominal exam: Present soft; Absent distention or tenderness Back Exam Back exam: Absent CVA tenderness (R) or CVA tenderness (L) Neurological Exam Neurological exam: Present alert Medical Decision Making Medical Records Screening: Per USPSTF and CDC recommendations, given the prevalence of disease in our region, it is our hospital?s policy to screen for HIV and viral Hepatitis for all patients aged 18 and over and those with ongoing risk factors. Damien Inquiry Pt receiving controlled substance: No Vital Signs: 08/18/24 08:55 08/18/24 09:01 08/18/24 09:05 Temperature 98.8 F Temperature Source Oral Pulse Rate 91 H 92 H Pulse Rate [Left] 91 H Respiratory Rate 14 Blood Pressure 159/71 H 141/76 H Blood Pressure [Right Arm] 159/71 H Blood Pressure Mean [Right Arm] 100 Blood Pressure Source [Right Arm] Automatic Cuff Blood Pressure Position [Right Arm] Sitting 02 Sat by Pulse Oximetry 94 L 92 L 96 Oxygen Delivery Method Room Air Room Air Room Air 08/18/24 09:30 08/18/24 10:00 Temperature Temperature Source Pulse Rate 78 75 Pulse Rate [Left] Respiratory Rate 19 23 Blood Pressure 160/65 H 144/59 H Blood Pressure [Right Arm] Blood Pressure Mean [Right Arm] Blood Pressure Source [Right Arm] Blood Pressure Position [Right Arm] 02 Sat by Pulse Oximetry 92 L 93 L Oxygen Delivery Method Room Air Room Air Lab Data Lab results reviewed: Yes I reviewed the patient's lab results. Lab Results 08/18/24 08:15: Urine Color Yellow, Urine Appearance Cloudy, Urine pH 6.0, Ur Specific [place] 1.025, Urine Protein 3+ A, Urine Glucose (UA) Negative, Urine Ketones Trace, Urine Blood 2+ A, Urine Nitrate Positive A, Urine Bilirubin 1+ A, Urine Urobilinogen 1.0, Ur Leukocyte Esterase 2+ A, Urine RBC None, Urine WBC Tntc, Ur Squamous Epith Cells Occasional, Urine Bacteria 3+ 08/18/24 09:01: WBC 22.8 H*, RBC 3.71 L, Hgb 12.0 L, Hct 35.2 L, MCV 94.9 H, MCH 32.3 H, MCHC 34.1, RDW 12.5, Plt Count 126 L, MPV 12.0 H, Neut % (Auto) 84.7 H, Lymph % (Auto) 3.6 L, [place] % (Auto) 10.1 H, Eos % (Auto) 0.0 L, Baso % (Auto) 0.2, Neut # (Auto) 19.3 H, Lymph # (Auto) 0.8, [place] # (Auto) 2.3 H, Eos # (Auto) 0.0, Baso # (Auto) 0.0, Sodium 136, Potassium 4.1, Chloride 105, Carbon Dioxide 19 L, Anion Gap 16.1 H, BUN 20, Creatinine 1.50 H, Estimated Creat Clear 59, Estimated GFR 46 L, Est GFR ( Amer) 55 L, Glucose 185 H, Calcium 8.7, Phosphorus 2.2 L, Magnesium 1.7, Total Bilirubin 2.2 H, AST 23, ALT 20, Alkaline Phosphatase 106, Total Creatine Kinase 102, Troponin I 0.05 H, C-Reactive Protein 89.7 H, NT-Pro-B Natriuret Pep 5930 H, Total Protein 7.0, Albumin 4.1, Globulin 2.9, Albumin/Globulin Ratio 1.4, TSH 5.14 H 08/18/24 09:01 08/18/24 09:01 Orders (Tests/Meds): ED MEDICATIONS Discontinued Medications Generic Name Dose Route Start Last Admin Trade Name Freq PRN Reason Stop Dose Admin Levofloxacin 750 mg 08/18/24 10:32 Levofloxacin 750 Mg Tablet PO 08/18/24 10:33 ONCE ONE ORDERS Category Date Time Status CXR --portable [XR chest portable] Stat Exams 08/18/24 09:12 Completed BNP [NT Pro Brain Natriuretic Pep.] Stat Lab 08/18/24 09:01 Completed CBC w/Auto Diff [Complete Blood Count Auto Diff] Stat Lab 08/18/24 09:01 Results CK [Creatine Kinase] Stat Lab 08/18/24 09:01 Completed CMP [Comprehensive Metabolic Panel] Stat Lab 08/18/24 09:01 Completed CRP [C-Reactive Protein] Stat Lab 08/18/24 09:01 Completed HIV Combo Stat Lab 08/18/24 09:01 Received Hepatitis C Ab Qual. W/ RFX Stat Lab 08/18/24 09:01 Received Magnesium Stat Lab 08/18/24 09:01 Completed Phosphorous Stat Lab 08/18/24 09:01 Completed TSH [Thyroid Stimulating Hormone] Stat Lab 08/18/24 09:01 Completed Trop I [Troponin I] Stat Lab 08/18/24 09:01 Completed Troponin I Q3H Lab 08/18/24 12:15 Ordered Troponin I Q3H Lab 08/18/24 15:15 Ordered UA [Urinalysis and Microscopic] Stat Lab 08/18/24 08:15 Completed Urine Culture Stat Micro 08/18/24 08:15 Received Medical Decision Narrative: 74-year-old male with above history and physical. I suspect he has a urinary tract infection which is causing his generalized weakness other things in the differential would be metabolic abnormalities pneumonia etc. It abnormal for a male to have a urinary tract infection he does not have any definitive signs or symptoms of prostatitis but if he does have evidence of UTI we will do a prostate exam as it will change my management from a duration of antibiotic standpoint and follow-up as well. Will reassess shortly. Reassessment 10:38 AM. Patient looks very well from a vital sign standpoint remains afebrile repeated his temperature is 98.4 heart rate is in the 60s and 70s. He states that he is strong enough to go home. He does have an elevated white blood cell count at 22. He has a chronically elevated creatinine at 1.5 it is near his baseline. Additionally he has a mildly elevated troponin just above the upper limits of normal at 0.05 he has been chronically elevated in the past. He currently has no evidence clinically of ischemia I am not worried that this is a type I LA. It is possible he is developing sepsis but objectively does not meet any criteria as he only meets 1 SIRS criteria currently. I am worried about the patient considered admission however I do not think that there is objective inpatient criteria at the moment to be met. I did a prostate exam he does have some mild tenderness and I suspect he does have a urinary tract infection possibly with concomitant prostatitis first dose of Levaquin was given in the ED. I discussed with his family that he could get worse and to keep a very close eye on him if he develops a fever or elevated heart rate or feeling worse that he needs to come back at which point we will put him in a hospital and IV antibiotics. First dose of Levaquin given prescription of 2 weeks sent to him at his pharmacy. He may need 4 to 6 weeks for prostatitis and he has been given a referral to Dr. Cerda as well. Family is aware that condition is guarded and that I am on the fence with inpatient admission and to come back with any worsening at all. Critical Care Critical Care Time Critical Care Time: No
[2024-08-18 09:18] LABS: Basophils % 0.2 % (0.1-2.0); Hematocrit 35.2 % (42.0-52.0); Lymphocytes # 0.8 K/mm3 (0.7-4.5); Lymphocytes % 3.6 % (10-50); Mean Corpuscular HGB Conc 34.1 g/dL (31.8-35.4); Mean Corpuscular Hemoglobin 32.3 pg (27.0-31.2); Mean Corpuscular Volume 94.9 fl (80-94); Monocytes # 2.3 K/mm3 (0.1-1.0); Monocytes % 10.1 % (1.7-9.3); Neutrophils # 19.3 K/mm3 (1.8-7.8); Neutrophils % 84.7 % (37.0-80.0); Platelet Count 126 K/mm3 (142-424); Red Blood Count 3.71 M/mm3 (4.60-6.20); Red Cell Distribution Width 12.5 % (11.5-17.5); White Blood Count 22.8 K/mm3 (4.8-10.8)
[2024-08-18 09:18] LABS: Microscopic, Urine URINE MICROSCOPIC (MICROSCOPIC)
[2024-08-18 09:20] LABS: Albumin Level 4.1 g/dl (3.5-5.0); Chloride 105 mmol/L (98-107)
[2024-08-18 09:21] LABS: Potassium 4.1 mmoL/L (3.5-5.1); Sodium 136 mmol/L (136-145)
--- NOTE | 2024-08-18 09:21 | ECG_ITS ---
APPROVED REPORT Exam: Resting ECG HR:85 bpm ECG Measurements Heart Rate 85 AXES [place] 198 P 85 QRSd 112 QRS 5 QT 370 T 74 QTc 412 Conclusion SINUS RHYTHM WITH OCCASIONAL SUPRAVENTRICULAR PREMATURE COMPLEXES MODERATE INTRAVENTRICULAR CONDUCTION DELAY [110+ ms QRS DURATION] BORDERLINE ECG UNCONFIRMED REPORT Electronically signed by : Mehul Zarco, 08/18/2024 15:12:57
[2024-08-18 09:22] LABS: Appearance,Urine CLOUDY (Clear); Blood, Urine 2+ (Negative); Color,Urine YELLOW (Yellow); Glucose,Urine (UA) Negative (Negative); Ketones,Urine TRACE (Negative); Leukocyte Esterase,Urine 2+ (Negative); Nitrate,Urine POSITIVE (Negative); Protein,Urine 3+ (Negative); Specific Gravity, Urine 1.025 (1.005-1.030)
[2024-08-18 09:22] LABS: MANUAL DIFFERENTIAL MANUAL DIFFERENTIAL (MANUAL DIFF)
[2024-08-18 09:23] LABS: Alanine Aminotransferase 20 U/L (12-78); Albumin/Globulin Ratio 1.4 (1.1-1.8); Alkaline Phosphatase 106 U/L (38-126); Anion Gap 16.1 mEq/L (5-15); Aspartate Amino Transferase 23 U/L (17-59); Bilirubin,Total 2.2 mg/dl (0.2-1.3); Blood Urea Nitrogen 20 mg/dl (9-20); Carbon Dioxide 19 mmol/L (22.0-30.0); Creatinine Clearance Estimated 59 mL/min (50-200); Estimated Glomerular Filt Rate 46 ml/min (>60); GFR (African American) 55 ML/MIN (>60); Globulin 2.9 g/dL (1.3-3.2); Phosphorous 2.2 mg/dl (2.5-4.5)
[2024-08-18 09:24] LABS: Calcium 8.7 mg/dl (8.4-10.2); Creatine Kinase 102 U/L (55-170); Glucose 185 mg/dl (74-100); Magnesium 1.7 mg/dl (1.6-2.3)
[2024-08-18 09:29] LABS: C-Reactive Protein 89.7 mg/L (0-4)
[2024-08-18 09:30] VITALS: BP 160/65; PULSE 78; RESP 19; O2SAT 92
[2024-08-18 09:36] LABS: NT Pro Brain Natriuretic Pep. 5930 pg/mL (0-450)
[2024-08-18 09:38] LABS: Troponin I 0.05 ng/ml (0.00-0.034)
[2024-08-18 09:57] LABS: Thyroid Stimulating Hormone 5.14 uIU/mL (0.465-4.68)
[2024-08-18 10:00] VITALS: BP 144/59; PULSE 75; RESP 23; O2SAT 93
[2024-08-18 10:04] LABS: Bacteria,Urine 3+ /lpf; Bilirubin,Urine 1+ (Negative); Squamous Epithelial Cell,Urine Occasional #/hpf (0-5); WBC,Urine TNTC #/hpf (0-3)
--- NOTE | 2024-08-18 10:05 | PC.NURSE ---
Dr. Zaroc states he does not want blood cultures at this time.
[2024-08-18 10:36] LABS: HIV Combo NEGATIVE (Negative)
[2024-08-18 10:44] LABS: Hepatitis C Ab Qual. W/ RFX NEGATIVE (Negative)
[2024-08-18] MEDS: levoFLOXacin 750 MG TABLET PO (10:46)
[2024-08-18 10:47] VITALS: BP 144/59; PULSE 74; RESP 16; TEMP 36.7; O2SAT 95
[2024-08-18 11:25] LABS: Lymphocytes % 4 % (10-50); Monocytes % 9 % (2-9); Neutrophils % 87 % (42-76); Platelet Estimate Normal; RBC Morphology Normal; Total Cells Counted 100
--- NOTE | 2024-08-20 17:13 | PC.NURSE ---
URINE CULTURE DISCUSSED WITH DR REID, NO NEW ORDERS
== END 2024-08-18 10:50 | disposition home or self-care (01) ==
PROVIDERS: Emergency Provider Student in an Organized Health Care Education/Training Program; PCP Internal Medicine Adolescent Medicine
DX: N39.0 Urinary tract infection, site not specified (principal); N41.0 Acute prostatitis; R53.1 Weakness; R35.0 Frequency of micturition; R30.0 Dysuria; R10.2 Pelvic and perineal pain
CPT/HCPCS: 71045; 80053; 81001; 82550; 83735; 83880; 84100; 84443; 84484; 85007; 85025; 85027; 86140; 86803; 87086; 87088; 87186; 87389; 93005; 99284

== ENCOUNTER 2024-08-18 14:27 | Observation (INO) | payer MEDICARE, OTHER, SELFPAY ==
[2024-08-18] VITALS (8 sets, daily range): BP systolic 131–160; BP diastolic 62–73; PULSE 71–88; RESP 16–20; TEMP 36.4–36.9; O2SAT 95–98; BMI 30.8; BMI 29.6
[2024-08-18 14:49] LABS: Coronavirus 19, PCR Not Detected (NotDetected); Influenza A, PCR Not Detected (NotDetected); Influenza B, PCR Not Detected (NotDetected)
--- NOTE | 2024-08-18 14:59 | ED_ITS ---
<Statement entered by Shelley Zarco MD - 08/21/24 12:47> I was consulted by the TIGIST, and we discussed the complexity of the problems being addressed. I approved the treatment and management plan for this patient?s care in the Emergency Department, thus performing a substantive portion of the medical decision making Discharge Plan Disposition Patient Disposition: Admitted Condition: Fair Clinical Impressions Clinical Impression: Sepsis UTI (urinary tract infection) Qualifiers: Urinary tract infection type: site unspecified Hematuria presence: without hematuria Qualified Code(s): N39.0 - Urinary tract infection, site not specified Discharge ED Provider: Shelley Zarco General Adult HPI <Tasha Park APRN - Last Filed: 08/18/24 15:40> General Chief complaint: Abdominal Pain Stated complaint: Fever 102.2 Time Seen by Provider: 08/18/24 14:53 Mode of Arrival: Ambulatory Source of Information: Patient Limitations: No Limitations Description of Symptoms (Recalled from ER Triage Doc. by RN): Patient presents ambulatory to triage. States he was recently seen here at this facility and diagnosed with a UTI. States the provider told him to return to the ED if his temperature got above 100.4. Patient endorses a TMax of 102 at home. States he took Ibuprofen at 1300. Afebrile now in triage. Endorses N/V. States, It's just clear liquid. Denies diarrhea. Last BM this morning. Related Data Home Medications ?Medication ?Instructions ?Recorded ?Confirmed amlodipine 5 mg tablet 10 mg PO DAILY 03/03/22 08/18/24 atorvastatin 40 mg tablet 40 mg PO HS 03/03/22 08/18/24 aspirin 81 mg tablet,delayed 81 mg PO DAILY 08/18/24 08/18/24 release losartan 100 mg tablet 100 mg PO DAILY 08/19/24 08/19/24 sertraline 100 mg tablet 100 mg PO DAILY 08/19/24 08/19/24 Previous Rx's ?Medication ?Instructions ?Recorded tamsulosin 0.4 mg capsule 0.4 mg PO HS #30 caps 12/15/22 levofloxacin 750 mg tablet 750 mg PO DAILY 12 days #14 tabs 08/19/24 Allergies Allergy/AdvReac Type Severity Reaction Status Date / Time No Known Drug Allergies Allergy Unknown Other Verified 08/18/24 18:00 (NKDA) PFSH <Tasha Park APRN - Last Filed: 08/18/24 15:40> [facility] Disclaimer: The information contained in this section may have been updated after the patient was seen, as this information can be updated by other users. Medical History Chronic GERD Diabetes mellitus BPH (benign prostatic hyperplasia) Acid reflux Colon cancer Hyperlipidemia Hypertension Surgical History History of colon resection History of cholecystectomy Family History Father Coronary artery disease Mother Hypertension Social History Smoking Status: Never smoker second hand exposure: No alcohol intake: never substance use type: other current occupational status: retired Travel in the last 8 weeks: None household members: spouse and children housing: house marital status: caffeine: Yes Have you lived/traveled outside US in past 30 days?: No Contact w/someone who lives/traveled outside US past 30 days?: No Exposure to someone with infectious disease in past 14 days?: No Do you have a fever (greater than 100.4 F or 38 C)?: Yes Have you tested positive for COVID-19: No Exposed to someone with COVID-19 in past 14 days?: No Do you have a sore throat?: No Do you have a cough?: No Do you have any weakness?: No Do you have any diarrhea?: No Are you experiencing any unusual bleeding?: No Do you have any muscle aches/pain?: No Do you have any abdominal pain?: No Are you experiencing loss of taste or smell?: No Other Medical History Have you received the Flu Vaccine for this season: No Have you received the Pneumonia Vaccine: No <Tasha Park APRN - Last Filed: 08/18/24 15:40> ROS Obtained: Yes Systems reviewed as appropriate & no additional complaints except as documented Physical Exam <Tasha Park APRN - Last Filed: 08/18/24 15:40> General General appearance: alert and in no apparent distress Head Head exam: atraumatic and normocephalic Eye Eye exam: Present normal appearance and PERRL ENT ENT exam: Present normal exam Neck Neck exam: Present normal inspection Chest Chest inspection: Present normal inspection and symmetric chest wall rise; Absent tenderness Respiratory Respiratory exam: Present normal lung sounds bilaterally Cardiovascular Cardiovascular exam: Present regular rate Abdominal Exam Abdominal exam: Present soft and normal bowel sounds; Absent tenderness Extremities Exam Extremities exam: Present normal inspection and full ROM Back Exam Back exam: Present normal inspection and full ROM; Absent CVA tenderness (R) or CVA tenderness (L) Neurological Exam Neurological exam: Present alert and oriented X3 Psychiatric Psychiatric exam: Present normal affect and normal mood Skin Skin exam: Present warm and dry Medical Decision Making <Tasha Park APRN - Last Filed: 08/18/24 15:40> Medical Records Screening: Per USPSTF and CDC recommendations, given the prevalence of disease in our region, it is our hospital?s policy to screen for HIV and viral Hepatitis for all patients aged 18 and over and those with ongoing risk factors. Damien Inquiry Pt receiving controlled substance: No Damien was queried for this patient: No Vital Signs: 08/18/24 14:31 08/18/24 14:45 08/18/24 15:00 Temperature 98.4 F Temperature Source Oral Pulse Rate 88 86 Pulse Rate [Radial] 84 Respiratory Rate 18 Blood Pressure 160/69 H 133/64 Blood Pressure [R Arm] 131/73 Blood Pressure Mean 95 Blood Pressure Mean [R Arm] 92 Blood Pressure Source [R Arm] Automatic Cuff Blood Pressure Position [R Arm] Sitting 02 Sat by Pulse Oximetry 96 96 95 Oxygen Delivery Method Room Air Room Air Room Air 08/18/24 15:14 08/18/24 15:30 08/18/24 15:34 Temperature Temperature Source Pulse Rate 78 82 Pulse Rate [Radial] Respiratory Rate Blood Pressure 136/63 142/70 H Blood Pressure [R Arm] Blood Pressure Mean 87 87 Blood Pressure Mean [R Arm] Blood Pressure Source [R Arm] Blood Pressure Position [R Arm] 02 Sat by Pulse Oximetry 96 96 Oxygen Delivery Method Room Air Room Air Room Air Lab Data Lab Results 08/18/24 14:39: SARS-CoV-2 (PCR) Not detected, Influenza A Untype (PCR) Not detected, Influenza Type B (PCR) Not detected 08/18/24 14:40: Urine Color Yellow, Urine Appearance Clear, Urine pH 6.0, Ur Specific [place] 1.025, Urine Protein 3+ A, Urine Glucose (UA) Negative, Urine Ketones Trace, Urine Blood 2+ A, Urine Nitrate Positive A, Urine Bilirubin 1+ A, Urine Urobilinogen 1.0, Ur Leukocyte Esterase 2+ A, Urine RBC None, Urine WBC 10-20, Ur Squamous Epith Cells 3-5, Urine Bacteria 2+ 08/18/24 15:00: WBC 25.4 H*, RBC 3.67 L, Hgb 11.8 L, Hct 34.7 L, MCV 94.6 H, MCH 32.2 H, MCHC 34.0, RDW 12.5, Plt Count 122 L, MPV 12.5 H, Neut % (Auto) 84.8 H, Lymph % (Auto) 3.7 L, [place] % (Auto) 9.8 H, Eos % (Auto) 0.0 L, Baso % (Auto) 0.2, Neut # (Auto) 21.5 H, Lymph # (Auto) 0.9, [place] # (Auto) 2.5 H, Eos # (Auto) 0.0, Baso # (Auto) 0.0, Sodium 135 L, Potassium 4.3, Chloride 106, Carbon Dioxide 21 L, Anion Gap 12.3, BUN 24 H, Creatinine 1.80 H, Estimated Creat Clear 48, Estimated GFR 37 L, Est GFR ( Amer) 45 L, Glucose 150 H, Lactate 1.1, Calcium 8.5, Total Bilirubin 1.9 H, AST 23, ALT 19, Alkaline Phosphatase 102, Total Protein 7.0, Albumin 3.9, Globulin 3.1, Albumin/Globulin Ratio 1.3 08/19/24 06:35 08/19/24 06:35 Orders (Tests/Meds): ED MEDICATIONS Discontinued Medications Generic Name Dose Route Start Last Admin Trade Name Freq PRN Reason Stop Dose Admin Acetaminophen 650 mg 08/18/24 17:12 Acetaminophen 325mg Tab PO 09/17/24 17:11 Q4HP PRN Fever or Mild Pain (1-3) Aspirin 81 mg 08/19/24 09:00 08/19/24 09:16 Aspirin Ec 81mg Tablet PO 09/18/24 08:59 81 mg DAILY SUMI Administration Atorvastatin Calcium 40 mg 08/18/24 21:00 08/18/24 20:18 Atorvastatin 40mg Tablet PO 09/17/24 20:59 40 mg HS SUMI Administration Enoxaparin Sodium 40 mg 08/19/24 09:00 02/17/25 09:15 Enoxaparin 40mg/0.4ml Syringe SUBCUT 09/18/24 08:59 40 mg DAILY SUMI Administration Finasteride 5 mg 08/18/24 21:00 08/18/24 20:18 Finasteride 5mg Tablet PO 09/17/24 20:59 Not Given HS SUMI Ceftriaxone Sodium 1 gm/ 50 mls @ 100 mls/hr 08/18/24 15:15 08/18/24 15:16 Sodium Chloride IV 08/28/24 15:14 100 mls/hr Q24H SUMI Administration Ondansetron HCl 4 mg 08/18/24 17:12 Ondansetron 4mg/2ml Vial IV 09/17/24 17:11 Q6HP PRN Nausea Sodium Chloride 500 ml 08/18/24 15:09 08/18/24 15:16 Sodium Chloride 0.9% 500ml Bag IV 08/18/24 15:10 500 ml ONCE ONE Administration Sodium Chloride 10 ml 08/19/24 07:28 Sodium Chloride 0.9% 10ml Flush Syringe IV 09/18/24 07:27 NEEDED PRN Maintain IV Site Tamsulosin HCl 0.4 mg 08/18/24 21:00 08/18/24 20:18 Tamsulosin 0.4mg Capsule PO 09/17/24 20:59 0.4 mg HS SUMI Administration ORDERS Category Date Time Status CBC w/Auto Diff [Complete Blood Count Auto Diff] Stat Lab 08/18/24 15:00 Completed CMP [Comprehensive Metabolic Panel] Stat Lab 08/18/24 15:00 Completed Lactic Acid Stat Lab 08/18/24 15:00 Completed Rapid PCR Covid and Flu A/B Stat Lab 08/18/24 14:39 Completed Urinalysis and Microscopic Stat Lab 08/18/24 14:40 Completed Blood Culture Stat Micro 08/18/24 15:13 Results Medical Decision Narrative: In summary, patient is a 74-year-old male PMHx diabetes, hypertension, BPH, history of prostatitis, history of colon cancer presents to the ED after being discharged approximately 2 hours ago for UTI. Patient states that he has had difficulty urinating, dysuria x 2 days. Patient was given 1 dose of Levaquin earlier today. Denies headache, visual disturbances, posterior neck pain, chest pain, shortness of breath, nausea, vomiting, diarrhea. Upon initial evaluation in the ED patient is alert, oriented and cooperative. He is febrile. Physical exam unremarkable. No CVA tenderness. Patient meets sepsis criteria, doing a modified fluid bolus due to patient BNP earlier in the 4999's. Will reassess after the 500 mL bolus. CBC remarkable for leukocytosis, WBC 25.4, stable H&H. Platelet 122, appears to be baseline. CMP remarkable for hyponatremia, sodium 135, BUN 24, creatinine 1.80, elevated from prior. Patient will be admitted to hospital medicine for possible urosepsis. Remained hemodynamically stable while in the ED. Patient tolerating PO. <Shelley Zarco MD - Last Filed: 08/21/24 12:50> Vital Signs: 08/18/24 14:31 08/18/24 14:45 08/18/24 15:00 Temperature 98.4 F Temperature Source Oral Pulse Rate 88 86 Pulse Rate [Radial] 84 Respiratory Rate 18 Blood Pressure 160/69 H 133/64 Blood Pressure [R Arm] 131/73 Blood Pressure Mean 95 Blood Pressure Mean [R Arm] 92 Blood Pressure Source [R Arm] Automatic Cuff Blood Pressure Position [R Arm] Sitting 02 Sat by Pulse Oximetry 96 96 95 Oxygen Delivery Method Room Air Room Air Room Air 08/18/24 15:14 08/18/24 15:30 08/18/24 15:34 Temperature Temperature Source Pulse Rate 78 82 Pulse Rate [Radial] Respiratory Rate Blood Pressure 136/63 142/70 H Blood Pressure [R Arm] Blood Pressure Mean 87 87 Blood Pressure Mean [R Arm] Blood Pressure Source [R Arm] Blood Pressure Position [R Arm] 02 Sat by Pulse Oximetry 96 96 Oxygen Delivery Method Room Air Room Air Room Air Lab Data Lab Results 08/18/24 14:39: SARS-CoV-2 (PCR) Not detected, Influenza A Untype (PCR) Not detected, Influenza Type B (PCR) Not detected 08/18/24 14:40: Urine Color Yellow, Urine Appearance Clear, Urine pH 6.0, Ur Specific [place] 1.025, Urine Protein 3+ A, Urine Glucose (UA) Negative, Urine Ketones Trace, Urine Blood 2+ A, Urine Nitrate Positive A, Urine Bilirubin 1+ A, Urine Urobilinogen 1.0, Ur Leukocyte Esterase 2+ A, Urine RBC None, Urine WBC 10-20, Ur Squamous Epith Cells 3-5, Urine Bacteria 2+ 08/18/24 15:00: WBC 25.4 H*, RBC 3.67 L, Hgb 11.8 L, Hct 34.7 L, MCV 94.6 H, MCH 32.2 H, MCHC 34.0, RDW 12.5, Plt Count 122 L, MPV 12.5 H, Neut % (Auto) 84.8 H, Lymph % (Auto) 3.7 L, [place] % (Auto) 9.8 H, Eos % (Auto) 0.0 L, Baso % (Auto) 0.2, Neut # (Auto) 21.5 H, Lymph # (Auto) 0.9, [place] # (Auto) 2.5 H, Eos # (Auto) 0.0, Baso # (Auto) 0.0, Sodium 135 L, Potassium 4.3, Chloride 106, Carbon Dioxide 21 L, Anion Gap 12.3, BUN 24 H, Creatinine 1.80 H, Estimated Creat Clear 48, Estimated GFR 37 L, Est GFR ( Amer) 45 L, Glucose 150 H, Lactate 1.1, Calcium 8.5, Total Bilirubin 1.9 H, AST 23, ALT 19, Alkaline Phosphatase 102, Total Protein 7.0, Albumin 3.9, Globulin 3.1, Albumin/Globulin Ratio 1.3 Orders (Tests/Meds): ED MEDICATIONS Discontinued Medications Generic Name Dose Route Start Last Admin Trade Name Freq PRN Reason Stop Dose Admin Acetaminophen 650 mg 08/18/24 17:12 Acetaminophen 325mg Tab PO 09/17/24 17:11 Q4HP PRN Fever or Mild Pain (1-3) Aspirin 81 mg 08/19/24 09:00 08/19/24 09:16 Aspirin Ec 81mg Tablet PO 09/18/24 08:59 81 mg DAILY SUMI Administration Atorvastatin Calcium 40 mg 08/18/24 21:00 08/18/24 20:18 Atorvastatin 40mg Tablet PO 09/17/24 20:59 40 mg HS SUMI Administration Enoxaparin Sodium 40 mg 08/19/24 09:00 08/19/24 09:15 Enoxaparin 40mg/0.4ml Syringe SUBCUT 09/18/24 08:59 40 mg DAILY SUMI Administration Finasteride 5 mg 08/18/24 21:00 08/18/24 20:18 Finasteride 5mg Tablet PO 09/17/24 20:59 Not Given HS SUMI Ceftriaxone Sodium 1 gm/ 50 mls @ 100 mls/hr 08/18/24 15:15 08/18/24 15:16 Sodium Chloride IV 08/28/24 15:14 100 mls/hr Q24H SUMI Administration Ondansetron HCl 4 mg 08/18/24 17:12 Ondansetron 4mg/2ml Vial IV 09/17/24 17:11 Q6HP PRN Nausea Sodium Chloride 500 ml 08/18/24 15:09 08/18/24 15:16 Sodium Chloride 0.9% 500ml Bag IV 08/18/24 15:10 500 ml ONCE ONE Administration Sodium Chloride 10 ml 08/19/24 07:28 Sodium Chloride 0.9% 10ml Flush Syringe IV 09/18/24 07:27 NEEDED PRN Maintain IV Site Tamsulosin HCl 0.4 mg 08/18/24 21:00 08/18/24 20:18 Tamsulosin 0.4mg Capsule PO 09/17/24 20:59 0.4 mg HS SUMI Administration ORDERS Category Date Time Status CBC w/Auto Diff [Complete Blood Count Auto Diff] Stat Lab 08/18/24 15:00 Completed CMP [Comprehensive Metabolic Panel] Stat Lab 08/18/24 15:00 Completed Lactic Acid Stat Lab 08/18/24 15:00 Completed Rapid PCR Covid and Flu A/B Stat Lab 08/18/24 14:39 Completed Urinalysis and Microscopic Stat Lab 08/18/24 14:40 Completed Blood Culture Stat Micro 08/18/24 15:13 Results Medical Decision Narrative: In summary, patient is a 74-year-old male PMHx diabetes, hypertension, BPH, history of prostatitis, history of colon cancer presents to the ED after being discharged approximately 2 hours ago for UTI. Patient states that he has had difficulty urinating, dysuria x 2 days. Patient was given 1 dose of Levaquin earlier today. This is Dr. Zarco working with [facility] [place]. I saw this patient earlier this morning diagnosed him with urinary tract infection possible prostatitis started on Levaquin. At the time he looked very well had no tachycardia tachypnea or fever. Had a white blood cell count of 22 had a mild troponin elevation and some other mild elevations in abnormality such as a mild T. bili elevation. It is possible these are endorgan damage secondary to sepsis but told the patient to come back with any worsening and specifically a fever which she had a temperature of 102 at home. Therefore we will admit the patient blood cultures have been sent. Urine and urine culture already sent earlier today. Repeat chemistries are being done specifically lactate. Rocephin. Administered and patient will be admitted to hospital medicine for further evaluation management. Critical Care <Shelley Zarco MD - Last Filed: 08/21/24 12:50> Critical Care Time Critical Care Time: Yes Attestation: On 08/18/24, the high probability of a clinically significant, sudden or life threatening deterioration of the following system(s) required my full and direct attention, intervention and personal management. The time I documented below is in addition to time spent performing reported procedures but includes the following listed in this critical care notation. Total Time Total Critical Care Time: 35
--- NOTE | 2024-08-18 14:59 | PC.NURSE ---
I rounded on the pt. He is visiting with his and daughter. no new complaints at this time. call gavino in reach.
[2024-08-18 15:16] LABS: Basophils % 0.2 % (0.1-2.0); Hematocrit 34.7 % (42.0-52.0); Hemoglobin 11.8 g/dL (14.1-18.0); Lymphocytes # 0.9 K/mm3 (0.7-4.5); Lymphocytes % 3.7 % (10-50); Mean Corpuscular Hemoglobin 32.2 pg (27.0-31.2); Mean Corpuscular Volume 94.6 fl (80-94); Mean Platelet Volume 12.5 fl (7.4-10.4); Monocytes # 2.5 K/mm3 (0.1-1.0); Monocytes % 9.8 % (1.7-9.3); Neutrophils # 21.5 K/mm3 (1.8-7.8); Neutrophils % 84.8 % (37.0-80.0); Platelet Count 122 K/mm3 (142-424); Red Blood Count 3.67 M/mm3 (4.60-6.20); Red Cell Distribution Width 12.5 % (11.5-17.5); White Blood Count 25.4 K/mm3 (4.8-10.8)
[2024-08-18] MEDS: CEFTRIAXONE SODIUM 1 GM in 0.9 % SODIUM CHLORIDE 50 ML IV (15:16)
[2024-08-18] MEDS: SODIUM CHLORIDE 0.9% 500ML BAG 500 ML IV (15:16)
[2024-08-18 15:24] LABS: Albumin Level 3.9 g/dl (3.5-5.0); Chloride 106 mmol/L (98-107); Sodium 135 mmol/L (136-145)
[2024-08-18 15:25] LABS: Potassium 4.3 mmoL/L (3.5-5.1)
[2024-08-18 15:27] LABS: Alanine Aminotransferase 19 U/L (12-78); Albumin/Globulin Ratio 1.3 (1.1-1.8); Alkaline Phosphatase 102 U/L (38-126); Anion Gap 12.3 mEq/L (5-15); Aspartate Amino Transferase 23 U/L (17-59); Bilirubin,Total 1.9 mg/dl (0.2-1.3); Blood Urea Nitrogen 24 mg/dl (9-20); Carbon Dioxide 21 mmol/L (22.0-30.0); Creatinine Clearance Estimated 48 mL/min (50-200); Estimated Glomerular Filt Rate 37 ml/min (>60); GFR (African American) 45 ML/MIN (>60); Globulin 3.1 g/dL (1.3-3.2); Lactic Acid 1.1 mmol/L (0.7-2.1)
--- NOTE | 2024-08-18 15:27 | PC.NURSE ---
Report called to Raiza BLACK
[2024-08-18 15:28] LABS: Calcium 8.5 mg/dl (8.4-10.2); Glucose 150 mg/dl (74-100)
[2024-08-18 15:37] LABS: Microscopic, Urine URINE MICROSCOPIC (MICROSCOPIC)
--- NOTE | 2024-08-18 15:39 | PC.NURSE ---
arrived by w/c from ED
[2024-08-18 15:45] LABS: Appearance,Urine CLEAR (Clear); Blood, Urine 2+ (Negative); Color,Urine YELLOW (Yellow); Glucose,Urine (UA) Negative (Negative); Ketones,Urine TRACE (Negative); Leukocyte Esterase,Urine 2+ (Negative); Nitrate,Urine POSITIVE (Negative); Protein,Urine 3+ (Negative); Specific Gravity, Urine 1.025 (1.005-1.030)
[2024-08-18 15:48] LABS: Bilirubin,Urine 1+ (Negative)
[2024-08-18 15:54] LABS: Bacteria,Urine 2+ /lpf
--- NOTE | 2024-08-18 16:57 | PC.NURSE ---
Patient states he has never been diagnosed with diabetes and has never taken medication for disease process
--- NOTE | 2024-08-18 18:46 | P.HP_ITS ---
History of Present Illness *Admission Date: 08/18/24 *Reason for visit:: Fever, urinary symptoms *History of present illness: Mehul Moulton is a 74-year-old male with a medical history significant for UTIs, BPH, hypertension who presents with decreased urinary frequency, dysuria, and a fever of 102 Fahrenheit at home. He states he has had UTIs like this in the past which required hospitalization. Denies abdominal pain, constipation/diarrhea, chest pain, shortness of breath. Has been taking his Flomax, finasteride. Initially discharged from ED in stable condition, advised to return if he develops a fever which he did. Workup in the ED significant for WBC 25.4, creatinine 1.8 (baseline 1.2), UA highly suggestive of UTI. Mini respiratory panel negative. BRITTNEE performed in the ED revealed tender prostate. Given ceftriaxone. Case discussed with ED provider and decision made to admit patient for sepsis secondary to UTI. [facility] Disclaimer: The information contained in this section may have been updated after the patient was seen, as this information can be updated by other users. Medical History Chronic GERD Diabetes mellitus BPH (benign prostatic hyperplasia) Acid reflux Colon cancer Hyperlipidemia Hypertension Surgical History History of colon resection History of cholecystectomy Family History Father Coronary artery disease Mother Hypertension Social History Smoking Status: Never smoker second hand exposure: No alcohol intake: never substance use type: other current occupational status: retired Travel in the last 8 weeks: None household members: spouse and children housing: house marital status: caffeine: Yes Have you lived/traveled outside US in past 30 days?: No Contact w/someone who lives/traveled outside US past 30 days?: No Exposure to someone with infectious disease in past 14 days?: No Do you have a fever (greater than 100.4 F or 38 C)?: Yes Have you tested positive for COVID-19: No Exposed to someone with COVID-19 in past 14 days?: No Do you have a sore throat?: No Do you have a cough?: No Do you have any weakness?: No Do you have any diarrhea?: No Are you experiencing any unusual bleeding?: No Do you have any muscle aches/pain?: No Do you have any abdominal pain?: No Are you experiencing loss of taste or smell?: No Other Medical History Have you received the Flu Vaccine for this season: Yes Have you received the Pneumonia Vaccine: No Meds Home Medications and Allergies Home Medications ?Medication ?Instructions ?Recorded ?Confirmed ?Type amlodipine 5 mg tablet 10 mg PO DAILY 03/03/22 08/18/24 History atorvastatin 40 mg tablet 40 mg PO HS 03/03/22 08/18/24 History tamsulosin 0.4 mg capsule 0.4 mg PO HS #30 caps 12/15/22 08/18/24 Rx finasteride 5 mg tablet 5 mg PO HS 30 days #30 tabs 01/16/24 08/18/24 Rx aspirin 81 mg tablet,delayed 81 mg PO DAILY 08/18/24 08/18/24 History release levofloxacin 750 mg tablet 750 mg PO DAILY 14 days #14 tabs 08/18/24 08/18/24 Rx New Prescriptions to Start Prescriptions: Allergies Allergy/AdvReac Type Severity Reaction Status Date / Time No Known Drug Allergies Allergy Unknown Other Verified 08/18/24 18:00 (NKDA) Exam Data for Last 24 hours Vital signs and Labs for Last 24 Hours: Temp Pulse Resp BP Pulse Ox O2 Del Method 98.4 F 79 20 142/70 H 95 Room Air 08/18/24 15:51 08/18/24 15:51 08/18/24 15:51 08/18/24 15:51 08/18/24 15:51 08/18/24 17:00 Laboratory Results - last 24 hr 08/18/24 14:39: SARS-CoV-2 (PCR) Not detected, Influenza A Untype (PCR) Not detected, Influenza Type B (PCR) Not detected 08/18/24 14:40: Urine Color Yellow, Urine Appearance Clear, Urine pH 6.0, Ur Specific [place] 1.025, Urine Protein 3+ A, Urine Glucose (UA) Negative, Urine Ketones Trace, Urine Blood 2+ A, Urine Nitrate Positive A, Urine Bilirubin 1+ A, Urine Urobilinogen 1.0, Ur Leukocyte Esterase 2+ A, Urine RBC None, Urine WBC 10-20, Ur Squamous Epith Cells 3-5, Urine Bacteria 2+ 02/16/25 15:00: WBC 25.4 H*, RBC 3.67 L, Hgb 11.8 L, Hct 34.7 L, MCV 94.6 H, MCH 32.2 H, MCHC 34.0, RDW 12.5, Plt Count 122 L, MPV 12.5 H, Neut % (Auto) 84.8 H, Lymph % (Auto) 3.7 L, [place] % (Auto) 9.8 H, Eos % (Auto) 0.0 L, Baso % (Auto) 0.2, Neut # (Auto) 21.5 H, Lymph # (Auto) 0.9, [place] # (Auto) 2.5 H, Eos # (Auto) 0.0, Baso # (Auto) 0.0, Sodium 135 L, Potassium 4.3, Chloride 106, Carbon Dioxide 21 L, Anion Gap 12.3, BUN 24 H, Creatinine 1.80 H, Estimated Creat Clear 48, Estimated GFR 37 L, Est GFR ( Amer) 45 L, Glucose 150 H, Lactate 1.1, Calcium 8.5, Total Bilirubin 1.9 H, AST 23, ALT 19, Alkaline Phosphatase 102, Total Protein 7.0, Albumin 3.9, Globulin 3.1, Albumin/Globulin Ratio 1.3 I & O for Last 24 hours: Intake & Output 08/15/24 08/16/24 08/17/24 08/18/24 23:59 23:59 23:59 23:59 Weight 93.61 kg Constitutional Constitutional: no acute distress *Routine HEENT Exam Head: Present normocephalic Eye: Present EOMI and PERRL ENT: Present mucous membranes moist *Routine Neck Exam Neck: Present supple; Absent lymphadenopathy *Routine Respiratory Exam Respiratory: Present CTA bilaterally *Routine Cardiovascular Exam Cardiovascular: Present RRR *Routine Abdominal Exam Abdominal: Present soft and normoactive bowel sounds; Absent tenderness *Routine Rectal Exam Rectal:: deferred *Routine Genitalia Exam Genitalia:: deferred *Routine Extremities Exam Extremities: Absent cyanosis, clubbing or edema *Routine Skin Exam Skin: Present warm; Absent rash *Routine Neurological Exam Neurological: Present alert and oriented X3 Assessment and Plan *Assessment and plan (1) Sepsis: Status: Acute Category: Medical Code(s): A41.9 - Sepsis, unspecified organism (2) Acute UTI: Status: Acute Category: Medical Code(s): N39.0 - Urinary tract infection, site not specified Plan Mehul Moulton is a 74-year-old male with a medical history significant for UTIs, BPH, hypertension who presents with decreased urinary frequency, dysuria, and a fever of 102 Fahrenheit at home. He states he has had UTIs like this in the past which required hospitalization. Denies abdominal pain, constipation/diarrhea, chest pain, shortness of breath. Has been taking his Flomax, finasteride. Initially discharged from ED in stable condition, advised to return if he develops a fever which he did. Workup in the ED significant for WBC 25.4, creatinine 1.8 (baseline 1.2), UA highly suggestive of UTI. Mini respiratory panel negative. BRITTNEE performed in the ED revealed tender prostate. Given ceftriaxone. Case discussed with ED provider and decision made to admit patient for sepsis secondary to UTI. #Sepsis #UTI #Decreased urinary output #BPH ? Urinary symptoms for 3 days, with fever of 102 Fahrenheit, WBC 25.4 on admission. Vitals stable at this time ? History of UTIs, last urine culture E. coli which was pansensitive. ? IV ceftriaxone day 07/07. ? Follow-up urine, blood culture. ? Bladder scan normal. Patient had a urinary output event. ? Continue home Flomax, finasteride. #JHONATAN on CKD ? Initial creatinine 1.8, baseline 1.2. ? Likely a combination of both post renal obstruction due to decreased urinary output, and decreased p.o. intake. ? NS at 75 mL/h. ? Consider CT abdomen/pelvis if renal function worsens, versus renal ultrasound. #Hypertension ? Hold home BP meds in the setting of sepsis. Full code DVT prophylaxis: Lovenox 40 mg
[2024-08-18] MEDS: TAMSULOSIN 0.4MG CAPSULE 0.4 MG PO (20:18)
[2024-08-18] MEDS: ATORVASTATIN 40MG TABLET 40 MG PO (20:18)
[2024-08-19] VITALS: BP 136/53; PULSE 73; RESP 16; TEMP 36.3; O2SAT 96
[2024-08-19 04:00] VITALS: BP 151/72; PULSE 72; RESP 16; TEMP 37.2; O2SAT 94; BMI 29.4
--- NOTE | 2024-08-19 04:06 | PC.NURSE ---
Pt is A/O X 4. he has denied pain or discomfort throughout shift and has rested well. Family has remained at bedside. Pt is able to ambulate to with standby assist. Pt has been afebrile and other VS have been WNL. Pt is continent of b/b and is voiding without difficulty
[2024-08-19 07:26] LABS: Basophils % 0.2 % (0.1-2.0); Eosinophils % 0.1 % (0.1-12.0); Hematocrit 34.3 % (42.0-52.0); Lymphocytes # 1.4 K/mm3 (0.7-4.5); Lymphocytes % 8.3 % (10-50); Mean Corpuscular HGB Conc 32.1 g/dL (31.8-35.4); Mean Corpuscular Hemoglobin 31.1 pg (27.0-31.2); Mean Corpuscular Volume 96.9 fl (80-94); Mean Platelet Volume 12.6 fl (7.4-10.4); Monocytes # 1.3 K/mm3 (0.1-1.0); Monocytes % 7.3 % (1.7-9.3); Neutrophils # 14.3 K/mm3 (1.8-7.8); Neutrophils % 82.2 % (37.0-80.0); Platelet Count 103 K/mm3 (142-424); Red Blood Count 3.54 M/mm3 (4.60-6.20); Red Cell Distribution Width 12.7 % (11.5-17.5); White Blood Count 17.4 K/mm3 (4.8-10.8)
[2024-08-19 07:31] LABS: MANUAL DIFFERENTIAL MANUAL DIFFERENTIAL (MANUAL DIFF)
[2024-08-19 07:42] LABS: Albumin Level 3.4 g/dl (3.5-5.0); Chloride 108 mmol/L (98-107); Sodium 137 mmol/L (136-145)
[2024-08-19 07:45] LABS: Alanine Aminotransferase 17 U/L (12-78); Albumin/Globulin Ratio 1.2 (1.1-1.8); Alkaline Phosphatase 110 U/L (38-126); Aspartate Amino Transferase 22 U/L (17-59); Bilirubin,Total 1.1 mg/dl (0.2-1.3); Blood Urea Nitrogen 31 mg/dl (9-20); Calcium 8.1 mg/dl (8.4-10.2); Carbon Dioxide 22 mmol/L (22.0-30.0); Creatinine Clearance Estimated 44 mL/min (50-200); Estimated Glomerular Filt Rate 35 ml/min (>60); GFR (African American) 42 ML/MIN (>60); Globulin 2.8 g/dL (1.3-3.2); Glucose 104 mg/dl (74-100); Total Protein,Serum 6.2 g/dl (6.3-8.2)
[2024-08-19 08:00] VITALS: BP 150/60; PULSE 81; RESP 16; TEMP 36.8; O2SAT 99
[2024-08-19 08:20] LABS: Lymphocytes % 7 % (10-50); Monocytes % 8 % (2-9); Neutrophils % 74 % (42-76); Total Cells Counted 100
[2024-08-19 08:27] LABS: Platelet Estimate Normal; RBC Morphology Normal
--- NOTE | 2024-08-19 09:13 | HMH.PHAINT1 ---
Pharmacy Intervention Comments: MEDICATION RECONCILIATION COMPLETED ON PATIENT USING EXTERNAL FILL HISTORY FROM PHARMACY. -SHIMA ALVAREZ, ROYAD
[2024-08-19] MEDS: ENOXAPARIN 40MG/0.4ML SYRINGE 40 MG SUBCUT (09:15)
[2024-08-19] MEDS: ASPIRIN EC 81MG TABLET 81 MG PO (09:16)
--- NOTE | 2024-08-19 11:54 | P.DS_ITS ---
General Admission date:: 08/18/24 HPI HPI HPI: Mehul Moulton is a 74-year-old male with a medical history significant for UTIs, BPH, hypertension who presents with decreased urinary frequency, dysuria, and a fever of 102 Fahrenheit at home. He states he has had UTIs like this in the past which required hospitalization. Denies abdominal pain, constipation/diarrhea, chest pain, shortness of breath. Has been taking his Flomax, finasteride. Initially discharged from ED in stable condition, advised to return if he develops a fever which he did. Workup in the ED significant for WBC 25.4, creatinine 1.8 (baseline 1.2), UA highly suggestive of UTI. Mini respiratory panel negative. BRITTNEE performed in the ED revealed tender prostate. Given ceftriaxone. Case discussed with ED provider and decision made to admit patient for sepsis secondary to UTI. Hospital Course Hospital Course Hospital Course: Mehul Moulton is a 74-year-old male with a medical history significant for UTIs, BPH, hypertension who presents with decreased urinary frequency, dysuria, and a fever of 102 Fahrenheit at home. He states he has had UTIs like this in the past which required hospitalization. Denies abdominal pain, constipation/diarrhea, chest pain, shortness of breath. Has been taking his Flomax, finasteride. Initially discharged from ED in stable condition, advised to return if he develops a fever which he did. Workup in the ED significant for WBC 25.4, creatinine 1.8 (baseline 1.2), UA highly suggestive of UTI. Mini respiratory panel negative. BRITTNEE performed in the ED revealed tender prostate. Given ceftriaxone. Case discussed with ED provider and decision made to admit patient for sepsis secondary to UTI. #Sepsis #UTI #Decreased urinary output #BPH ? Urinary symptoms for 3 days, with fever of 102 Fahrenheit, WBC 25.4 on admission. Improved to 17.4. Vitals stable at this time ? History of UTIs, last urine culture E. coli which was pansensitive. ? Clinically improved with ceftriaxone for 2 days. ? We will follow-up urine culture. Blood culture NGTD 24 hours. ? Bladder scan normal. Patient is making urine. ? Advised to continue levofloxacin for 13 more days prescribed by the ED. Continue home Flomax, finasteride. #JHONATAN on CKD ? Initial creatinine 1.8, baseline 1.2. Creatinine stabilized at 1.9. GFR 35. ? Advised to follow-up with PCP for possible CKD. #Hypertension ? Continue home regimen. Exam Data for Last 24 hours Vital signs and Labs for Last 24 Hours: Temp Pulse Resp BP Pulse Ox O2 Del Method 98.3 F 81 16 150/60 H 99 Room Air 08/19/24 08:00 08/19/24 08:00 08/19/24 08:00 08/19/24 08:00 08/19/24 08:00 08/19/24 09:00 Laboratory Results - last 24 hr 08/18/24 14:39: SARS-CoV-2 (PCR) Not detected, Influenza A Untype (PCR) Not detected, Influenza Type B (PCR) Not detected 08/18/24 14:40: Urine Color Yellow, Urine Appearance Clear, Urine pH 6.0, Ur Specific [place] 1.025, Urine Protein 3+ A, Urine Glucose (UA) Negative, Urine Ketones Trace, Urine Blood 2+ A, Urine Nitrate Positive A, Urine Bilirubin 1+ A, Urine Urobilinogen 1.0, Ur Leukocyte Esterase 2+ A, Urine RBC None, Urine WBC 10-20, Ur Squamous Epith Cells 3-5, Urine Bacteria 2+ 08/18/24 15:00: WBC 25.4 H*, RBC 3.67 L, Hgb 11.8 L, Hct 34.7 L, MCV 94.6 H, MCH 32.2 H, MCHC 34.0, RDW 12.5, Plt Count 122 L, MPV 12.5 H, Neut % (Auto) 84.8 H, Lymph % (Auto) 3.7 L, [place] % (Auto) 9.8 H, Eos % (Auto) 0.0 L, Baso % (Auto) 0.2, Neut # (Auto) 21.5 H, Lymph # (Auto) 0.9, [place] # (Auto) 2.5 H, Eos # (Auto) 0.0, Baso # (Auto) 0.0, Sodium 135 L, Potassium 4.3, Chloride 106, Carbon Dioxide 21 L, Anion Gap 12.3, BUN 24 H, Creatinine 1.80 H, Estimated Creat Clear 48, Estimated GFR 37 L, Est GFR ( Amer) 45 L, Glucose 150 H, Lactate 1.1, Calcium 8.5, Total Bilirubin 1.9 H, AST 23, ALT 19, Alkaline Phosphatase 102, Total Protein 7.0, Albumin 3.9, Globulin 3.1, Albumin/Globulin Ratio 1.3 08/19/24 06:35: WBC 17.4 H D, RBC 3.54 L, Hgb 11.0 L, Hct 34.3 L, MCV 96.9 H, MCH 31.1, MCHC 32.1, RDW 12.7, Plt Count 103 L, MPV 12.6 H, Neut % (Auto) 82.2 H , Lymph % (Auto) 8.3 L, [place] % (Auto) 7.3, Eos % (Auto) 0.1, Baso % (Auto) 0.2, Neut # (Auto) 14.3 H, Lymph # (Auto) 1.4, [place] # (Auto) 1.3 H, Eos # (Auto) 0.0, Baso # (Auto) 0.0, Total Counted 100, Neutrophils % (Manual) 74, Band Neutrophils % 11.0 H, Lymphocytes % (Manual) 7 L, Monocytes % (Manual) 8, Platelet Estimate Normal, RBC Morphology Normal, Sodium 137, Potassium 4.0, Chloride 108 H, Carbon Dioxide 22, Anion Gap 11.0, BUN 31 H D, Creatinine 1.90 H , Estimated Creat Clear 44, Estimated GFR 35 L, Est GFR ( Amer) 42 L, Glucose 104 H D, Calcium 8.1 L, Magnesium 2.0 D, Total Bilirubin 1.1, AST 22, ALT 17, Alkaline Phosphatase 110, Total Protein 6.2 L, Albumin 3.4 L D, Globulin 2.8, Albumin/Globulin Ratio 1.2 I & O for Last 24 hours: Intake & Output 08/16/24 08/17/24 08/18/24 08/19/24 23:59 23:59 23:59 23:59 Intake Total 240 / 240 Output Total 0 / 0 0 / 0 Balance 240 / 240 0 / 0 Weight 93.61 kg 93.123 kg Constitutional Constitutional: no acute distress, obese and cooperative *Routine HEENT Exam Head: Present normocephalic Eye: Present EOMI and PERRL ENT: Present mucous membranes moist *Routine Neck Exam Neck: Present supple; Absent lymphadenopathy *Routine Respiratory Exam Respiratory: Present CTA bilaterally; Absent rhonchi, wheezes or crackles *Routine Cardiovascular Exam Cardiovascular: Present RRR *Routine Abdominal Exam Abdominal: Present soft and normoactive bowel sounds; Absent tenderness *Routine Rectal Exam Patient deferred: visual exam *Routine Exam Patient deferred: penile exam *Routine Extremities Exam Extremities: Absent cyanosis, clubbing or edema *Routine Skin Exam Skin: Present intact and warm; Absent rash *Routine Neurological Exam Neurological: Present alert, oriented X3 and moving all extremities; Absent altered mental status Results Data Completed and Pending Labs on day of discharge: Labs from last 24 hours 08/19/24 08/18/24 08/18/24 06:35 15:00 14:40 WBC 17.4 H D 25.4 H* RBC 3.54 L 3.67 L Hgb 11.0 L 11.8 L Hct 34.3 L 34.7 L MCV 96.9 H 94.6 H MCH 31.1 32.2 H MCHC 32.1 34.0 RDW 12.7 12.5 Plt Count 103 L 122 L MPV 12.6 H 12.5 H Neut % (Auto) 82.2 H 84.8 H Lymph % (Auto) 8.3 L 3.7 L [place] % (Auto) 7.3 9.8 H Eos % (Auto) 0.1 0.0 L Baso % (Auto) 0.2 0.2 Neut # (Auto) 14.3 H 21.5 H Lymph # (Auto) 1.4 0.9 [place] # (Auto) 1.3 H 2.5 H Eos # (Auto) 0.0 0.0 Baso # (Auto) 0.0 0.0 Total Counted 100 Neutrophils % (Manual) 74 Band Neutrophils % 11.0 H Lymphocytes % (Manual) 7 L Monocytes % (Manual) 8 Platelet Estimate Normal RBC Morphology Normal Sodium 137 135 L Potassium 4.0 4.3 Chloride 108 H 106 Carbon Dioxide 22 21 L Anion Gap 11.0 12.3 BUN 31 H D 24 H Creatinine 1.90 H 1.80 H Estimated Creat Clear 44 48 Estimated GFR 35 L 37 L Est GFR ( Amer) 42 L 45 L Glucose 104 H D 150 H Lactate 1.1 Calcium 8.1 L 8.5 Magnesium 2.0 D Total Bilirubin 1.1 1.9 H AST 22 23 ALT 17 19 Alkaline Phosphatase 110 102 Total Protein 6.2 L 7.0 Albumin 3.4 L D 3.9 Globulin 2.8 3.1 Albumin/Globulin Ratio 1.2 1.3 Urine Color Yellow Urine Appearance Clear Urine pH 6.0 Ur Specific [place] 1.025 Urine Protein 3+ A Urine Glucose (UA) Negative Urine Ketones Trace Urine Blood 2+ A Urine Nitrate Positive A Urine Bilirubin 1+ A Urine Urobilinogen 1.0 Ur Leukocyte Esterase 2+ A Urine RBC None Urine WBC 10-20 Ur Squamous Epith Cells 3-5 Urine Bacteria 2+ SARS-CoV-2 (PCR) Influenza A Untype (PCR) Influenza Type B (PCR) 08/18/24 14:39 WBC RBC Hgb Hct MCV MCH MCHC RDW Plt Count MPV Neut % (Auto) Lymph % (Auto) [place] % (Auto) Eos % (Auto) Baso % (Auto) Neut # (Auto) Lymph # (Auto) [place] # (Auto) Eos # (Auto) Baso # (Auto) Total Counted Neutrophils % (Manual) Band Neutrophils % Lymphocytes % (Manual) Monocytes % (Manual) Platelet Estimate RBC Morphology Sodium Potassium Chloride Carbon Dioxide Anion Gap BUN Creatinine Estimated Creat Clear Estimated GFR Est GFR ( Amer) Glucose Lactate Calcium Magnesium Total Bilirubin AST ALT Alkaline Phosphatase Total Protein Albumin Globulin Albumin/Globulin Ratio Urine Color Urine Appearance Urine pH Ur Specific [place] Urine Protein Urine Glucose (UA) Urine Ketones Urine Blood Urine Nitrate Urine Bilirubin Urine Urobilinogen Ur Leukocyte Esterase Urine RBC Urine WBC Ur Squamous Epith Cells Urine Bacteria SARS-CoV-2 (PCR) Not detected Influenza A Untype (PCR) Not detected Influenza Type B (PCR) Not detected DS: Diagnosis Discharge Diagnosis (1) Sepsis: Status: Acute Code(s): A41.9 - Sepsis, unspecified organism (2) Acute UTI: Status: Acute Code(s): N39.0 - Urinary tract infection, site not specified Meds Home Medications and Allergies Home Medications ?Medication ?Instructions ?Recorded ?Confirmed ?Type amlodipine 5 mg tablet 10 mg PO DAILY 03/03/22 08/18/24 History atorvastatin 40 mg tablet 40 mg PO HS 03/03/22 08/18/24 History tamsulosin 0.4 mg capsule 0.4 mg PO HS #30 caps 12/15/22 08/18/24 Rx aspirin 81 mg tablet,delayed 81 mg PO DAILY 08/18/24 08/18/24 History release levofloxacin 750 mg tablet 750 mg PO DAILY 12 days #14 tabs 08/19/24 08/18/24 Rx losartan 100 mg tablet 100 mg PO DAILY 08/19/24 08/19/24 History sertraline 100 mg tablet 100 mg PO DAILY 08/19/24 08/19/24 History New Prescriptions to Start Prescriptions: Allergies Allergy/AdvReac Type Severity Reaction Status Date / Time No Known Drug Allergies Allergy Unknown Other Verified 08/18/24 18:00 (NKDA) Discharge Plan Disposition Patient Disposition: Home, Self-Care Condition: Fair Follow up Plan Follow up with: Alexis Jessica MD [Primary Care Provider] - 08/26/24 11:45 am (@[place] location) Prescriptions/Medication Reconciliation: Continued amlodipine 5 mg tablet 10 mg PO DAILY atorvastatin 40 mg tablet 40 mg PO HS Patient Comments: TAKE 1 TABLET 1 TIME EACH DAY tamsulosin 0.4 mg capsule 0.4 mg PO HS Qty: 30 0RF aspirin 81 mg Tablet,Delayed Release (Dr/Ec) 81 mg PO DAILY sertraline 100 mg tablet 100 mg PO DAILY Patient Comments: TAKE 1 TABLET 1 TIME EACH DAY losartan 100 mg tablet 100 mg PO DAILY Patient Comments: TAKE 1 TABLET 1 TIME EACH DAY levofloxacin 750 mg tablet 750 mg PO DAILY 12 Days Qty: 14 0RF Problem Reconciliation Problems Reviewed?: Yes Patient Discharge Instructions Patient Instructions: Urinary Tract Infection, Sepsis Print Language: Kinyarwanda Providers Primary Care Provider: Alexis Jessica Admit Provider: Atul Cleaning Attending Provider: Atul Cleaning
[2024-08-19 12:00] VITALS: BP 142/62; PULSE 80; RESP 16; TEMP 36.7; O2SAT 98
--- NOTE | 2024-08-22 10:57 | SW/DCPLANNER ---
Spoke with patient on the phone. Patient stated that he is doing very well. Patient stated that he is aware of his upcoming appointment with his primary care provider. Patient stated that he didnt have any new medicine to get or be on. Patient stated that he has no concern or questions at this time. Amanda Gastelum
== END 2024-08-19 16:00 | disposition home or self-care (01) ==
LOC: ER 14:42 → 2ND 15:27
PROVIDERS: Nurse Practitioner; Admitting Provider Student in an Organized Health Care Education/Training Program; Emergency Provider Student in an Organized Health Care Education/Training Program; PCP Internal Medicine Adolescent Medicine; Visit Provider Student in an Organized Health Care Education/Training Program
DX: N39.0 Urinary tract infection, site not specified (principal); I12.9 Hypertensive chronic kidney disease with stage 1 through stage 4 chronic kidney disease, or unspecified chronic kidney disease; E11.22 Type 2 diabetes mellitus with diabetic chronic kidney disease; A41.9 Sepsis, unspecified organism; E78.5 Hyperlipidemia, unspecified; N17.9 Acute kidney failure, unspecified; N18.9 Chronic kidney disease, unspecified; N40.0 Benign prostatic hyperplasia without lower urinary tract symptoms; Z90.49 Acquired absence of other specified parts of digestive tract; Z79.02 Long term (current) use of antithrombotics/antiplatelets; Z85.038 Personal history of other malignant neoplasm of large intestine; Z82.49 Family history of ischemic heart disease and other diseases of the circulatory system; Z79.82 Long term (current) use of aspirin; Z79.899 Other long term (current) drug therapy
CPT/HCPCS: 80053; 81001; 83605; 83735; 85007; 85025; 87040; 87086; 87088; 87636; 99291; G0378; J0696; J1650